=== PATIENT | male | born 1955 | race Asian ===

== ENCOUNTER 2017-10-12 08:00 | Outpatient (CLI) | payer OTHER ==
[2017-10-12 13:21] LABS: THYROID STIMULATING HORMONE 48.22 uIU/mL (0.34-5.60)
[2017-10-12 13:37] LABS: ALBUMIN 4.1 g/dL (3.2-5.5); ALBUMIN/GLOBULIN RATIO 1.1 (1.0-2.2); ALKALINE PHOSPHATASE 44 IU/L (42-121); ALT ALANINE AMINOTRANSFERASE 18 IU/L (10-60); AST ASPARTATE AMINOTRANSFERASE 22 IU/L (10-42); BILIRUBIN,TOTAL 0.5 mg/dL (0.2-1.0); BUN - BLOOD UREA NITROGEN 18 mg/dL (6-20); CALCIUM 8.7 mg/dL (8.5-10.3); CARBON DIOXIDE - CO2 27 mmol/L (21-32); CHLORIDE 105 mmol/L (101-111); CHOLESTEROL 229 mg/dL; CREATININE 1.2 mg/dL (0.6-1.2); GFR - MDRD 62 (>89); GLUCOSE 84 mg/dL (70-100); HDL CHOLESTEROL 46 mg/dL; LDL CHOLESTEROL,CALCULATED 168 mg/dL; LDL/HDL RATIO 3.7 (<3.6); SODIUM 136 mmol/L (135-145); TOTAL PROTEIN 7.9 g/dL (6.7-8.2); VLDL CHOLESTEROL 15 mg/dL
[2017-10-12 14:09] LABS: FREE T4 (FREE THYROXINE) 0.49 ng/dL (0.58-1.64)
== END 2017-10-12 08:01 | disposition home or self-care (01) ==
LOC: LAB.WCP 08:00
PROVIDERS: ATTEND Family Medicine
DX: E78.5 Hyperlipidemia, unspecified (principal); E03.9 Hypothyroidism, unspecified; I10 Essential (primary) hypertension
CPT/HCPCS: 36415; 80053; 80061; 83721; 84439; 84443

== ENCOUNTER 2019-02-16 17:52 | Observation (INO) | payer MEDICARE, OTHER ==
[~2019-02-16 17:52] MED LIST: ISOSORBIDE MONONITRATE ER 30 MG TABLET PO SCH
[2019-02-16 18:26] LABS: BASOPHILS % (AUTO) 0.4 %; EOSINOPHILS # (AUTO) 0.5 10^3/uL (0.0-0.7); HGB - HEMOGLOBIN 14.6 g/dL (14.0-18.0); LYMPHOCYTES # (AUTO) 2.4 10^3/uL (1.5-3.5); MEAN CORPUSCULAR HEMOGLOBIN 32.4 pg (27.0-31.0); MEAN CORPUSCULAR HGB CONC 33.8 g/dL (32.0-36.0); MEAN CORPUSCULAR VOLUME 95.9 fL (80.0-94.0); MEAN PLATELET VOLUME 6.5 fL (7.4-11.4); MONOCYTES # (AUTO) 0.2 10^3/uL (0.0-1.0); MONOCYTES % (AUTO) 3.8 %; NEUTROPHILS # (AUTO) 2.2 10^3/uL (1.5-6.6); NEUTROPHILS % (AUTO) 40.8 %; PLT - PLATELET COUNT 214 10^3/uL (130-450); RED BLOOD COUNT 4.49 10^6/uL (4.70-6.10); RED CELL DISTRIBUTION WIDTH 13.9 % (12.0-15.0); WHITE BLOOD COUNT 5.4 x10^3/uL (4.8-10.8)
[2019-02-16] MEDS ORDERED: ASPIRIN CHEW 81 MG TABLET PO STA (18:38)
[2019-02-16] MEDS ORDERED: NITROGLYCERIN SL 0.4 MG TABLET SL STA (18:38)
[2019-02-16 18:40] LABS: ALBUMIN 4.6 g/dL (3.2-5.5); BILIRUBIN,TOTAL 0.7 mg/dL (0.2-1.0); CALCIUM 9.2 mg/dL (8.5-10.3); CREATININE 1.2 mg/dL (0.6-1.2); TOTAL PROTEIN 9.3 g/dL (6.7-8.2)
--- NOTE | 2019-02-16 18:40 | ED Physician Documentation ---
History of Present Illness - Stated complaint Stated Complaint: CHEST PAIN, DIZZY - Chief complaint Chief Complaint: General - History obtained from History obtained from: Patient, Family - History of Present Illness Timing: Today (63-year-old gentleman with history of hypertension. He had a chest pain episode about a year ago in the [facility] without a clear diagnosis other than hypertension. He has had chest heaviness all day anterior nonradiating. He is short of breath with it. He had a right leg cramp last night.) Review of Systems Ten Systems: 10 systems reviewed and negative Constitutional: reports: Reviewed and negative Nose: denies: Rhinorrhea / runny nose, Congestion Throat: denies: Sore throat Cardiac: denies: Pedal edema Respiratory: reports: Dyspnea. denies: Cough, Hemoptysis, Wheezing PD PAST MEDICAL HISTORY - Past Medical History Past Medical History: Yes Cardiovascular: Hypertension - Present Medications Home Medications: Ambulatory Orders Medication Instructions Recorded Confirmed Levothyroxine [Synthroid] 75 mcg PO QDAC 02/16/19 02/16/19 Losartan [Cozaar] 50 mg PO DAILY 02/16/19 02/16/19 Omeprazole Magnesium [Prilosec] 10 mg PO 02/16/19 02/16/19 - Allergies Allergies/Adverse Reactions: Allergies Allergy/AdvReac Type Severity Reaction Status Date / Time No Known Drug Allergies Allergy Verified 02/16/19 18:34 - Living Situation Living Situation: reports: With family - Social History Does the pt smoke?: No Does the pt drink ETOH?: No - Family History Family history: reports: CAD (brothers) PD ED PE NORMAL - Vitals Vital signs reviewed: Yes - General General: Alert and oriented X 3, No acute distress - HEENT HEENT: PERRL, EOMI - Neck Neck: Supple, no meningeal sign, No bony TTP - Cardiac Cardiac: RRR, No murmur - Respiratory Respiratory: No respiratory distress, Clear bilaterally - Abdomen Abdomen: Normal bowel sounds, Soft, Non tender - Back Back: No CVA TTP, No spinal TTP - Derm Derm: Normal color, Warm and dry - Extremities Extremities: No edema, No calf tenderness / cord - Neuro Neuro: Alert and oriented X 3, Normal speech Results - Vitals Vitals: Vital Signs - 24 hr 02/16/19 02/16/19 02/16/19 17:57 18:38 18:58 Temperature 36.4 C L Heart Rate 85 74 79 Respiratory 20 17 Rate Blood Pressure 182/99 H 168/100 H 124/89 H O2 Saturation 98 99 98 Oxygen O2 Source Room air - EKG (time done) 1755 Rate: Rate (enter#) (68) Rhythm: NSR Desmet: Normal Intervals: Normal IN QRS: Normal Ischemia: Normal ST segments Computer interpretation: Agree with computer - Labs Labs: Laboratory Tests 02/16/19 02/16/19 02/16/19 18:18 18:18 18:18 WBC 5.4 RBC 4.49 L Hgb 14.6 Hct 43.1 MCV 95.9 H MCH 32.4 H MCHC 33.8 RDW 13.9 Plt Count 214 MPV 6.5 L Neut # (Auto) 2.2 Lymph # (Auto) 2.4 [place] # (Auto) 0.2 Eos # (Auto) 0.5 Baso # (Auto) 0.0 Absolute Nucleated RBC 0.00 Nucleated RBC % 0.1 D-Dimer Sodium 137 Potassium 3.6 Chloride 100 L Carbon Dioxide 27 Anion Gap 10.0 BUN 17 Creatinine 1.2 Estimated GFR (MDRD) 61 L Glucose 112 H Calcium 9.2 Total Bilirubin 0.7 AST 34 ALT 33 Alkaline Phosphatase 69 Troponin I < 0.04 Total Protein 9.3 H Albumin 4.6 Globulin 4.7 H Albumin/Globulin Ratio 1.0 Lipase 34 02/16/19 18:18 WBC RBC Hgb Hct MCV MCH MCHC RDW Plt Count MPV Neut # (Auto) Lymph # (Auto) [place] # (Auto) Eos # (Auto) Baso # (Auto) Absolute Nucleated RBC Nucleated RBC % D-Dimer 224.9 Sodium Potassium Chloride Carbon Dioxide Anion Gap BUN Creatinine Estimated GFR (MDRD) Glucose Calcium Total Bilirubin AST ALT Alkaline Phosphatase Troponin I Total Protein Albumin Globulin Albumin/Globulin Ratio Lipase - Rads (name of study) 2v chest Radiology: EMP read contemporaneously (normal) PD MEDICAL DECISION MAKING - ED course ED course: 63-year-old gentleman with a significant Family history of coronary disease and hypertension who presents with concerning chest pain but EKG and biomarkers are negative. Spoke with Dr. Jansen for observation at 7:49 PM Departure - Departure Disposition: ED Place in Observation Clinical Impression: Chest pain Qualifiers: Chest pain type: unspecified Qualified Code(s): R07.9 - Chest pain, unspecified Condition: Good
--- NOTE | 2019-02-16 18:55 | XRAY Report ---
Reason: chest pain Procedure Date: 02/16/2019 Accession Number: [id number] / [id number] Procedure: XR - Chest 2 View X-Ray CPT Code: 49502 FULL RESULT: EXAM: CHEST RADIOGRAPHY EXAM DATE: 02/16/2019 06:34 PM. CLINICAL HISTORY: Chest pain. COMPARISON: XR CHEST PA AND LAT 12/26/2011 1:24 PM. TECHNIQUE: 2 views. FINDINGS: Lungs/Pleura: No focal opacities evident. No pleural effusion. No pneumothorax. Normal volumes. Mediastinum: Heart and mediastinal contours are unremarkable. Other: None. IMPRESSION: No focal consolidation. RADIA
[2019-02-16] MEDS ORDERED: ACETAMINOPHEN 325 MG TABLET PO PRN (21:33)
[2019-02-16] MEDS ORDERED: oxyCODONE 5 MG TABLET PO PRN (21:33)
[2019-02-16] MEDS ORDERED: SODIUM CHLORIDE FLUSH 0.9% 10 ML SYRINGE IVP PRN (21:33)
[2019-02-16] MEDS ORDERED: ZOLPIDEM 5 MG TABLET PO PRN (21:33)
[2019-02-16] MEDS ORDERED: ONDANSETRON 4 MG/2 ML VIAL IVP PRN (21:33)
[2019-02-16] MEDS ORDERED: ISOSORBIDE MONONITRATE ER 30 MG TABLET PO ONE (22:00)
[2019-02-16] MEDS ORDERED: POTASSIUM CHLORIDE 10 MEQ CAPSULE PO ONE (22:00)
[2019-02-17] MEDS: SODIUM CHLORIDE FLUSH 0.9% 10 ML SYRINGE IVP SCH ×3 (00:09→17:54)
--- NOTE | 2019-02-17 04:45 | HISTORY & PHYSICAL EXAMINATION ---
DATE OF SERVICE: 02/16/2019 Physician: Maritza Jansen MD CHIEF COMPLAINT: Chest pain. HISTORY OF PRESENT ILLNESS: Patient is a pleasant 63-year-old [place] male who presented to the ER with about 3 days' history of intermittent chest pains. Patient was a good historian and described the following: He had chest pain about a year ago, at which time he was in the [facility], underwent workup with echocardiogram and EKG, but no stress test per his knowledge. He was not told about any particular abnormality. Regarding the current presentation, he developed chest discomfort about 3 days ago. It was similar to his prior chest pain, it was not intense. Therefore, he did not seek medical attention. He, however, noted that recently when he exercises, he becomes short of breath easily and sometimes he needs to stop to catch his breath. He gets tired more than usual. On the day of admission around 02/16/2019, he got up in the morning around 6 a.m. and he had coffee. After having his coffee, he became dizzy and he felt like something was sitting on his chest. He had a heavy chest discomfort. It was associated with shortness of breath. He rated it as a 5/10 pain, heavy pain like discomfort. The pain stayed with him throughout the day. It was worse when he tried to exercise. Notably, he exercises daily. He walks and he rides his bike. 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 All day, he was short of breath and dizzy and around the evening, his symptoms got bad enough that he presented to the ER. Upon presentation to the ER, the patient was found with hypertension. Blood pressure initially was 200/100. Vital signs were otherwise stable. ER workup included negative D-dimer, negative troponin, EKG without ischemic sign. Unremarkable chest x-ray. Laboratory showed potassium 3.6, unremarkable glucose, renal function, normal liver function tests. Notably, TSH was 60. Reviewing the medical chart, patient sees Dr. Antwan Dillard and he was started on thyroid supplement for hypothyroidism. TSH was significantly elevated in the past. However, overall with downgoing trend. PAST MEDICAL HISTORY 1. Cataracts, retinitis pigmentosa. 2. Hypothyroidism. 3. Hypertension. 4. Gastroesophageal reflux disease. 5. Dyslipidemia. 6. No history of coronary artery disease or diabetes. OUTPATIENT MEDICATIONS 1. Losartan. 2. Levothyroxine. 3. Omeprazole. SOCIAL HISTORY: Patient stopped driving due to eye problems in 2014. Otherwise, he is fully functional with instrumental activities of daily living. He is in good general health and exercises daily. He does not smoke and does not drink. He is originally from the [facility]. CODE STATUS/ADVANCE DIRECTIVES: Patient wishes to remain FULL CODE and receive aggressive intervention in case of emergency. FAMILY HISTORY: Positive for coronary artery disease in one of the patient's brothers who had MA around age 60. PRIMARY CARE PHYSICIAN: Dr. Antwan Dillard. REVIEW OF SYSTEMS: Please see pertinent positives listed above at history of present illness. Patient does not report additional complaints on the 12-system review. PHYSICAL EXAMINATION VITAL SIGNS: Blood pressure initially 200/100, currently 170/83. Notably, during the ER stay, patient received nitroglycerin after which his blood pressure transiently decreased to 120/90, heart rate between 70 and 80, respiratory rate 17, oxygen saturation 98% on room air, temperature 36.8 Celsius. GENERAL: Patient is a well-developed male who is sitting up in bed, was surrounded by his family members and he just finished dinner. He was not in distress. CARDIOVASCULAR: S1, S2, at the second right parasternal auscultation point, there was a systolic click with questionable murmur. LUNGS: Clear to auscultation without wheezes or crackles. ABDOMEN: Soft, benign, nontender. Normal bowel tones. LYMPHATIC: No lymphedema. MUSCULOSKELETAL: Atraumatic. DERMATOLOGIC: The patient has dark skin. I could not appreciate rash or jaundice. MUSCULOSKELETAL: Without joint swelling or muscle tenderness. NEUROLOGIC: Alert, oriented, nonfocal. PSYCHIATRIC: Cooperative, pleasant to talk to. ASSESSMENT AND PLAN: Patient is a 63-year-old male with multiple cardiac risk factors including age, gender, hypertension and dyslipidemia, who is presenting with chest pain, which has both typical and atypical features. In particular, the chest pain seems to be exertional, associated with shortness of breath and fatigue, which would suggest cardiac etiology. However, cardiac workup remains negative including troponin and EKG. The onset of the symptoms was more than 8 hours ago which is reassuring that the patient does not have acute coronary syndrome. However, he is high risk to have coronary artery disease and will require further risk stratification with stress test. Notably, the patient had uncontrolled hypertension, plus he has a hypothyroid state, both of which could contribute to his general well being, symptoms and chest pain. ACTIVE ISSUES/DIAGNOSES 1. Chest pain, mostly exertional. 2. Uncontrolled hypertension. 3. Hypothyroid state. 4. On physical exam there is a systolic click, I question whether the patient would have mitral valve prolapse. PLAN AND ORDERS 1. Patient is being admitted under observation status. He is undergoing a rapid cardiac rule out. We will order echocardiogram to assess for valvular heart disease. I ordered an exercise stress test for the morning as well. 2. Considering uncontrolled hypertension, increase losartan from 50 mg daily to 100 mg daily. 3. Regarding hypothyroid state, I will check free T4. The thyroid disease is managed by the primary care physician. Patient is already on thyroid supplement. It might need to be increased. 4. Deep venous thrombosis prophylaxis, daily aspirin. 5. FULL CODE. Time spent in the care of this patient 55 minutes. ATTESTATION: I certify that the reasonable expectation for this patient is to be hospitalized for less than 48 hours. He is undergoing rapid cardiac rule out. If he will have significantly abnormal stress test, then he might get transferred to another facility. In any case, in our hospital, we expect observation admission less than 48 hours. TD: 02/16/2019 23:17 APARNA
[2019-02-17] MEDS ORDERED: LEVOTHYROXINE 75 MCG TABLET PO SCH (07:00)
[2019-02-17] MEDS ORDERED: PANTOPRAZOLE 40 MG VIAL IVP SCH (07:00)
[2019-02-17] MEDS ORDERED: LOSARTAN 50 MG TABLET PO SCH ×2 (09:00)
[2019-02-17] MEDS ORDERED: POLYETHYLENE GLYCOL 3350 17 GM PACKET PO SCH (09:00)
[2019-02-17] MEDS ORDERED: ENOXAPARIN 40 MG/0.4 ML SYRINGE SUBQ SCH (09:00)
[2019-02-17] MEDS ORDERED: ASPIRIN CHEW 81 MG TABLET PO SCH (09:00)
[2019-02-17 09:34] LABS: CHOL/HDL RATIO 5.4 (<5.0); CHOLESTEROL 237 mg/dL; HDL CHOLESTEROL 44 mg/dL; LDL CHOLESTEROL,CALCULATED 168 mg/dL; LDL/HDL RATIO 3.8 (<3.6); VLDL CHOLESTEROL 25 mg/dL
--- NOTE | 2019-02-17 14:26 | CARDIAC PROCEDURE NOTE ---
DATE OF SERVICE: 02/17/2019 Physician: Jenn Horton MD INDICATION: Chest pain. CARDIAC RISK FACTORS: Male gender, hypertension, and family history of heart disease (in a brother who had an TX at age 60). PROCEDURE: After signing informed consent, the patient underwent a Mekhi- protocol treadmill stress test with nuclear myocardial perfusion imaging. The patient exercised for 2 minutes and 36 seconds and needed to stop because of extreme fatigue and shortness of breath. He also developed "chest discomfort" which he rated 3-4/10. After stopping the test, he stated that this was not the "chest pressure" that he had yesterday which brought him to the emergency room. His oxygen saturation at this point was 98% on room air at peak. RESTING HEART RATE: 48. PEAK HEART RATE: 102 (64% predicted maximum heart rate for age), 4.6 METS. RESTING BLOOD PRESSURE: 120/80. PEAK BLOOD PRESSURE: Blood pressure 126/72 but then it eileen even further in recovery to 147/80 at 2 minutes and 150/75 at 3 minutes. Heart rate; however, recovered normally after exercise, it was 58-60 after 3 minutes. RESTING EKG: Sinus bradycardia, LVH voltage, flat T-waves in leads II, III, aVF, and V5 through V6. EKG AT PEAK: Frequent PVCs, ventricular couplets, one ventricular triplet seen, pseudonormalization of T-waves in leads II, III, aVF and V5 through V6. In recovery the T waves returned back to being flat in the inferolateral leads. SUMMARY: 1. Poor exercise tolerance. 2. Abnormal resting EKG. 3. Ventricular ectopy increases with exercise. 4. Significant changes are seen by EKG criteria, even at only 64% predicted maximum heart rate and a low MET level achieved. 5. Nuclear images reported separately. 6. If myocardial perfusion images are negative for ischemia, it may be due to inadequate peak HR achieved and patient needs a repeat evaluation for CAD with pharmaceutical stress testing. He also needs Cardiology follow-up for chronotropic incompetence which may be the cause of his shortness. TD: 02/17/2019 13:11 MTDD
--- NOTE | 2019-02-17 14:27 | Nuclear Medicine Report ---
Reason: Chest pain Procedure Date: 02/17/2019 Accession Number: [id number] / [id number] Procedure: NM - Myocardial Perfusion STR/RST CPT Code: FULL RESULT: EXAM: MYOCARDIAL PERFUSION STRESS AND REST EXAM DATE: 02/17/2019 01:56 PM. CLINICAL HISTORY: Chest pain. COMPARISON: None. TECHNIQUE: Patient given 10.1 mCi technetium 99m sestamibi IV for the rest portion of the study. Non-gated cardiac SPECT scintigraphy performed with multiplanar reformats. After an appropriate delay, patient given 0.4 mg Lexiscan for pharmacologic stress. Next, patient given 40.9 mCi technetium 99m sestamibi IV. Cardiac gated SPECT scintigraphy performed with multiplanar reformats, wall motion analysis, and left ventricular ejection fraction estimation. FINDINGS: There is uniform left ventricular myocardial activity on stress and rest. No fixed or reversible stress related perfusion defects are seen. Wall motion is uniform. Left ventricular ejection fraction estimated at 63%. IMPRESSION: 1. Normal exam. 2. No scintigraphic evidence of inducible ischemia or infarct. 3. Left ventricular ejection fraction estimated at 63%. RADIA The call report notification system was initiated by Dr. Warren Skinner at 02:26 PM on 02/17/2019. ADDENDUM: 02/18/19 15:33 hrs. Addendum: Correction to the technique section. This was actually a treadmill stress exam. Patient exercised on a Mekhi treadmill protocol and achieved a maximum heart rate of 102 bpm, 64% of the maximum predicted rate. As such, sensitivity of this exam for ischemia is reduced. End of addendum
[2019-02-17 15:55] VITALS: BP 106/62
--- NOTE | 2019-02-17 15:55 | Discharge Plan ---
Discharge Plan Disposition: Home, Self Care Condition: Fair Prescriptions: Nitroglycerin [Nitrostat] 0.4 mg SL Q5MIN PRN #100 tab.subl PRN Reason: Chest Pain Aspirin Chewable [St Polo Aspirin] 81 mg PO DAILY #30 tablet Atorvastatin Calcium [Lipitor] 80 mg PO QPM #30 tablet Diet: Cardiac Activity Restrictions: Light activity, no exercise Shower Restrictions: No Driving Restrictions: No Instruction Topics: Angina, Nitroglycerin Fast Acting, Fat Cholesterol, Foods Heart Healthy, Bradycardia Additional Instructions or Follow Up instructions: You were hospitalized to evaluate shortness of breath that was worsening over 3 months and new chest pain over the last 4 days. We found that you have had no prior heart attack, your heart muscle is strong, you have a very abnormally low heart rate and it does not rise adequately with activity. New prescriptions are being ordered to use when you get chest pain , and also you should start taking 1 aspirin daily and 1 tablet of Lipitor every night. These prescriptions were electronically sent to your [facility] pharmacy. Start taking the Lipitor tonight and take the aspirin daily with food. Take that tablet called nitroglycerin, to have it melt under your tongue, if you get chest pain. Keep taking the Losartan and the thyroid and stomach medicines. You will need to have follow-up with a [employer] (electronic security specialist) for further evaluation of your heart: A possible pacemaker is needed and another, different stress test is needed. Dr Dillard will arrange that for you. Bring this entire packet with you when you see Dr. Dillard tomorrow, for him to review. No Smoking: If you smoke, Please STOP! Call for help. Follow-up with: Antwan Dillard MD [Primary Care Provider] -
[2019-02-18] MEDS ORDERED: LEVOTHYROXINE 100 MCG TABLET PO SCH (07:00)
[2019-02-18] MEDS ORDERED: LEVOTHYROXINE 75 MCG TABLET PO SCH (07:00)
--- NOTE | 2019-02-22 12:27 | DISCHARGE SUMMARY ---
"Discharge Summary Admit Date: 02/16/19 Discharge Date: 02/17/19 Discharging Provider: Dr Jenn Horton Primary Care Provider: Dr Antwan Tolbert Code Status: Attempt Resuscitation Condition at Discharge: Stable Discharge Disposition: 01 Home, Self Care - DIAGNOSES Admission Diagnoses: 1) Chest pain 2) Fatigue 3) Bradycardia 4) Hypothyroidism 5) HTN Discharge Diagnoses with Status of Each Condition: 1) Chest pain - Evaluated and needs follow-up 2) Bradycardia - Stable, still present 3) Chronotropic incompetence with sinus node dysfunction - Stable, still present 4) Hyperlipidemia - On treatment 5) Hypothyroidism - On treatment 6) HTN - Stable, on treatment - HPI History of Present Illness: This is a 63 y/o male of [place] heritage who has a history of HTN, Hypothyroidism and GERD, and takes Losartan, Synthroid and Omeprazole. He had noticed fatigue recently and on the day of admission developed chest pressure with shortness of breath, worse with activity. He was also much more fatigued with new lightheadedness. In the ER, he had an EKG that showed sinus bradycardia at rate 56, and flat T waves in leads I, II, III, AVL, AV F and V6, and a normal troponin. He was placed in Observation status on telemetry for further cardiac evaluation. - CONSULTS | PROCEDURES Consultations: None Procedures: Treadmill stress test with Nuclear Myocardial Perfusion Imaging. Echo, complete. - HOSPITAL COURSE Hospital Course: 1) Chest pain - He had no further chest pain. A D-dimer was negative. Three troponins were < 0.04. He had a resting Echo that showed concentric LVH and borderline (low normal) LVEF of 50-55%. He underwent a treadmill stress test: he exercised for only 2:36 minutes and needed to stop due to fatigue, SOB and chest discomfort, rated 4/10. This was associated with increased PVCs and pseudonormalization of previously flat T waves. The nuclear images however showed no areas of ischemia. I spoke to Dr Tolbert about his results and the recommendation for repeat stress testing, Cardiology referral and the patient was started on sublingual NTG, daily aspirin and a statin and advised light activity, no daily exercise. 2) Bradycardia - Telemetry showed his slowest heart rates while sleeping to be 51 bpm. There were no high grade blocks. He will need further cardiac evaluation, such as with a Holter monitor and Cardiology referral and follow-up. 3) Chronotropic incompetence with sinus node dysfunction - This was documented by stress testing, as above, and I discussed this with Dr Tolbert. 4) Hyperlipidemia - His fasting lipid panel showed a total cholesterol of 237, LDL 168, HDL 25 and Triglycerides of 123. He was started on Lipitor. 5) Hypothyroidism - His labs showed persistent hypothyroidism: TSH 60 , free T4 1.1. He is on treatment and his Synthroid dose was not adjusted while here. 6) HTN - His Losartan was continued. - ALLERGIES Allergies/Adverse Reactions: Allergies Allergy/AdvReac Type Severity Reaction Status Date / Time No Known Drug Allergies Allergy Verified 02/16/19 18:34 - MEDICATIONS Home Medications: Ambulatory Orders Medication Instructions Recorded Confirmed Levothyroxine [Synthroid] 175 mcg PO QDAC 02/16/19 02/17/19 Losartan [Cozaar] 50 mg PO DAILY 02/16/19 02/16/19 Aspirin Chewable [St Polo 81 mg PO DAILY #30 tablet 02/17/19 Aspirin] Atorvastatin Calcium [Lipitor] 80 mg PO QPM #30 tablet 02/17/19 Nitroglycerin [Nitrostat] 0.4 mg SL Q5MIN PRN #100 tab.subl 02/17/19 Omeprazole 10 mg PO QDAC 02/17/19 02/17/19 - PHYSICAL EXAM AT DISCHARGE General Appearance: positive: No acute distress, Alert Eyes Bilateral: positive: EOMI ENT: positive: ENT inspection nml Neck: positive: Nml inspection, No JVD Cardiovascular: positive: Regular rate & rhythm, No murmur Abdomen: positive: Non-tender Extremities: positive: No pedal edema - LABS Result Diagrams: 02/16/19 18:18 02/16/19 18:18 - DIAGNOSTIC IMAGING Diagnostic Imaging Results: Final report reviewed - FOLLOW UP Follow Up: See Dr Tolbert, an appointment was already scheduled for the next day, he is to keep that appointment."
== END 2019-02-17 17:05 | disposition home or self-care (01) ==
LOC: ED 17:52 → MS2 19:50
PROVIDERS: ADMIT Internal Medicine; ATTEND Internal Medicine
DX: R07.89 Other chest pain (principal); R06.02 Shortness of breath; R00.1 Bradycardia, unspecified; E78.5 Hyperlipidemia, unspecified; I11.9 Hypertensive heart disease without heart failure; E03.9 Hypothyroidism, unspecified; K21.9 Gastro-esophageal reflux disease without esophagitis; Z79.899 Other long term (current) drug therapy; Z82.49 Family history of ischemic heart disease and other diseases of the circulatory system
CPT/HCPCS: 36415; 71046; 78452; 80061; 83690; 84436; 84484; 85379; 93005; 93017; 93306; 96372; 96374; 99284; A9270; A9500; G0378; J1650; 80053; 83721; 84443; 85025

== ENCOUNTER 2019-02-20 08:26 | Outpatient (CLI) | payer MEDICARE ==
[2019-02-20 12:37] LABS: CALCIUM 9.2 mg/dL (8.5-10.3); CREATININE 1.2 mg/dL (0.6-1.2)
[2019-02-20 12:57] LABS: FREE T4 (FREE THYROXINE) 0.39 ng/dL (0.58-1.64)
[2019-02-20 13:50] LABS: THYROID STIMULATING HORMONE 59.4 uIU/mL (0.34-5.60)
== END 2019-02-20 08:27 | disposition home or self-care (01) ==
LOC: LAB.WCP 08:26
PROVIDERS: ATTEND Family Medicine
DX: I49.8 Other specified cardiac arrhythmias (principal); E03.9 Hypothyroidism, unspecified; I10 Essential (primary) hypertension
CPT/HCPCS: 36415; 80048; 84439; 84443

== ENCOUNTER 2020-02-15 13:38 | Emergency (ER) | payer MEDICARE ==
[2020-02-15 14:08] LABS: BILIRUBIN,URINE NEGATIVE (NEGATIVE); GLUCOSE, URINE (UA) NEGATIVE (NEGATIVE); KETONES,URINE (UA) NEGATIVE (NEGATIVE); LEUKOCYTE ESTERASE, URINE NEGATIVE (NEGATIVE); NITRITE,URINE NEGATIVE (NEGATIVE); OCCULT BLOOD,URINE LARGE (NEGATIVE); PH,URINE 5.5 PH (5.0-7.5); PROTEIN,URINE 100 mg/dL (NEGATIVE); UROBILINOGEN,URINE 0.2 (NORMAL) E.U./dL (NORMAL)
[2020-02-15 14:12] LABS: CLARITY,URINE CLEAR (CLEAR)
[2020-02-15 14:21] LABS: BACTERIA,URINE Rare /HPF (None Seen); SQUAMOUS EPITHELIAL CELL,UR NONE SEEN (<= Few)
--- NOTE | 2020-02-15 14:26 | ED Physician Documentation ---
History of Present Illness - Stated complaint Stated Complaint: MALE - Chief complaint Chief Complaint: UTI - History obtained from History obtained from: Patient, Family - History of Present Illness Timing: Prior to arrival, How many weeks ago (4) Pain level max: 6 Pain level now: 2 - Additonal information Additional information: 64 year old male presents to the ED with cc of lower abdominal/suprapubic pain. Some dysuria. Reports a hx of kidney stones that requires some type of intervention in 2005 (? lithotripsy) pt reports that since the pain began a month ago, it has gotten increasing worse. he often has pain when urinating, but no obvious hematuria denies fevers, flank or CVA soham, no chills. pmh includes HTN, hypothyroid and dyslipidemia. he takes lotrel, statin and levothyroxine Review of Systems Constitutional: denies: Fever, Chills, Myalgias Nose: reports: Reviewed and negative Throat: reports: Reviewed and negative Cardiac: denies: Chest pain / pressure, Palpitations, Calf pain Respiratory: denies: Dyspnea, Cough GI: reports: Abdominal Pain. denies: Nausea, Vomiting, Constipation, Diarrhea, Hematemesis : reports: Dysuria. denies: Frequency, Hesitancy, Unable to Void Skin: denies: Rash, Lesions Musculoskeletal: denies: Neck pain, Back pain Neurologic: reports: Reviewed and negative Endocrine: denies: Swollen lymph nodes PD PAST MEDICAL HISTORY - Past Medical History Past Medical History: Yes Cardiovascular: Hypertension Respiratory: None Neuro: None Endocrine/Autoimmune: HyPOthyroidism GI: None : None Psych: None Musculoskeletal: None Derm: None - Past Surgical History Past Surgical History: Yes HEENT: Cataracts - Present Medications Home Medications: Ambulatory Orders Medication Instructions Recorded Confirmed Levothyroxine [Synthroid] 175 mcg PO QDAC 02/16/19 02/17/19 Losartan [Cozaar] 50 mg PO DAILY 02/16/19 02/16/19 Aspirin Chewable [[place] 81 mg PO DAILY #30 tablet 02/17/19 Aspirin] Atorvastatin Calcium [Lipitor] 80 mg PO QPM #30 tablet 02/17/19 Nitroglycerin [Nitrostat] 0.4 mg SL Q5MIN PRN #100 tab.subl 02/17/19 Omeprazole 10 mg PO QDAC 02/17/19 02/17/19 - Allergies Allergies/Adverse Reactions: Allergies Allergy/AdvReac Type Severity Reaction Status Date / Time No Known Drug Allergies Allergy Verified 02/15/20 13:48 - Social History Does the pt smoke?: No Smoking Status: Never smoker Does the pt drink ETOH?: No Does the pt have substance abuse?: No - POLST Patient has POLST: No PD ED PE NORMAL - General General: Alert and oriented X 3, No acute distress, Well developed/nourished - HEENT HEENT: Atraumatic, PERRL - Neck Neck: No adenopathy - Cardiac Cardiac: RRR, No murmur, No gallop - Respiratory Respiratory: No respiratory distress, Clear bilaterally - Abdomen Abdomen: Normal bowel sounds, Other (tender in the suprapubic region. No flank, CVA tendernss. no rebound or guarding. negative murphys and mcburneys) - Male Male : Deferred - Back Back: No CVA TTP - Derm Derm: Normal color, Warm and dry, No rash - Extremities Extremities: No deformity Results - Vitals Vitals: Vital Signs - 24 hr 02/15/20 13:41 Temperature 36.2 C L Heart Rate 70 Respiratory 20 Rate Blood Pressure 169/90 H O2 Saturation 98 Oxygen O2 Source Room air - Labs Labs: Laboratory Tests 02/15/20 02/15/20 02/15/20 14:01 14:40 14:40 WBC 7.2 RBC 4.68 L Hgb 14.9 Hct 44.0 MCV 94.0 MCH 31.8 H MCHC 33.9 RDW 12.1 Plt Count 243 MPV 8.3 Neut # (Auto) 2.9 Lymph # (Auto) 2.9 Mower # (Auto) 0.4 Eos # (Auto) 0.9 H Baso # (Auto) 0.0 Absolute Nucleated RBC 0.00 Nucleated RBC % 0.0 Sodium 136 Potassium 4.0 Chloride 98 L Carbon Dioxide 30 Anion Gap 8.0 BUN 24 H Creatinine 1.1 Estimated GFR (MDRD) 67 L Glucose 101 H Calcium 9.2 Total Bilirubin 0.6 AST 21 ALT 19 Alkaline Phosphatase 77 Total Protein 9.5 H Albumin 4.5 Globulin 5.0 H Albumin/Globulin Ratio 0.9 L Lipase 33 Urine Color YELLOW Urine Clarity CLEAR Urine pH 5.5 Ur Specific [place] 1.020 Urine Protein 100 H Urine Glucose (UA) NEGATIVE Urine Ketones NEGATIVE Urine Occult Blood LARGE H Urine Nitrite NEGATIVE Urine Bilirubin NEGATIVE Urine Urobilinogen 0.2 (NORMAL) Ur Leukocyte Esterase NEGATIVE Urine RBC 6-10 H Urine WBC 0-3 Ur Squamous Epith Cells NONE SEEN Urine Bacteria Rare Ur Microscopic Review INDICATED Urine Culture Comments NOT INDICATED - Rads (name of study) ct abd Radiology: Final report received (Enlarged retroperitoneal or peritoneal lymph nodes highly suspicious for metastatic disease.Segmental wall thickening in the proximal sigmoid colon with associated fat stranding suggestive of an intramural mass. These findings are suspicious for colon cancer.) PD MEDICAL DECISION MAKING - ED course Complexity details: reviewed results, re-evaluated patient, d/w patient, d/w family ED course: 64-year-old gentleman presents to the emergency department with about 1 month of lower abdominal pain and hematuria. - Labs and urinalysis were evaluated. He does have hematuria but no signs of infection defer antibiotics. The rest of the serum chemistry and CBC is without significant abnormality or worry. - Unfortunately CT scanning has revealed retroperitoneal lymph nodes and sigmoid thickening and fat stranding suggestive of an intramural mass or cancer. - I have discussed these results in detail with the patient and his grandson. -Patient is hemodynamically stable for discharge home. He will contact his primary care physician tomorrow to arrange prompt follow-up. He should receive a screening colonoscopy as well as likely referral to an oncologist. Departure - Departure Disposition: 01 Home, Self Care Clinical Impression: Retroperitoneal lymphadenopathy, Colonic mass Hematuria Qualifiers: Hematuria type: gross Qualified Code(s): R31.0 - Gross hematuria Condition: Good Record reviewed to determine appropriate education?: Yes Comments: The CT scanning showed findings that are concerning for cancer in the colon. You have a mass in your sigmoid colon that should be seen for evaluation through a colonoscopy. Please see your primary care provider within the next week to discuss these findings and to receive the appropriate referrals. Continue to take the hydrocodone that has been prescribed by your primary doctor. Return to the clinic for worsening pain vomiting or failure to have a bowel movement for 3 or more days.
[2020-02-15 14:47] LABS: BASOPHILS % (AUTO) 0.4 %; EOSINOPHILS # (AUTO) 0.9 10^3/uL (0.0-0.7); HGB - HEMOGLOBIN 14.9 g/dL (14.0-18.0); LYMPHOCYTES # (AUTO) 2.9 10^3/uL (1.5-3.5); LYMPHOCYTES % (AUTO) 40.9 %; MEAN CORPUSCULAR HEMOGLOBIN 31.8 pg (27.0-31.0); MEAN CORPUSCULAR HGB CONC 33.9 g/dL (32.0-36.0); MEAN PLATELET VOLUME 8.3 fL (7.4-11.4); MONOCYTES # (AUTO) 0.4 10^3/uL (0.0-1.0); NEUTROPHILS # (AUTO) 2.9 10^3/uL (1.5-6.6); NEUTROPHILS % (AUTO) 40.4 %; PLT - PLATELET COUNT 243 10^3/uL (130-450); RED BLOOD COUNT 4.68 10^6/uL (4.70-6.10); RED CELL DISTRIBUTION WIDTH 12.1 % (12.0-15.0); WHITE BLOOD COUNT 7.2 x10^3/uL (4.8-10.8)
[2020-02-15 15:02] LABS: ALBUMIN 4.5 g/dL (3.2-5.5); ALBUMIN/GLOBULIN RATIO 0.9 (1.0-2.2); BILIRUBIN,TOTAL 0.6 mg/dL (0.2-1.0); CALCIUM 9.2 mg/dL (8.5-10.3); CREATININE 1.1 mg/dL (0.6-1.2); TOTAL PROTEIN 9.5 g/dL (6.7-8.2)
[2020-02-15] MEDS ORDERED: KETOROLAC 30 MG/ML VIAL IM STA (15:14)
--- NOTE | 2020-02-15 16:30 | CT Report ---
Reason: hematuria; eval for renal stones/obstruction Procedure Date: 02/15/2020 Accession Number: [id number] / [id number] Procedure: CT - Abdomen/Pelvis WO CPT Code: Final Report FULL RESULT: PROCEDURE: Abdomen/Pelvis WO INDICATIONS: hematuria; eval for renal stones/obstruction TECHNIQUE: Noncontrast 5 mm thick sections acquired from the diaphragms to the symphysis. 5 mm coronal and sagittal reformats were then performed. For radiation dose reduction, the following was used: automated exposure control, adjustment of mA and/or kV according to patient size. COMPARISON: None available. FINDINGS: Image quality: Excellent. ABDOMEN: Lung bases: There is mild dependent atelectasis. Heart size is enlarged. Solid organs: Noncontrast evaluation of liver demonstrates no focal hepatic lesions. Gallbladder appears within normal limits without calcified gallstones. Pancreas is normal in contours. No adrenal nodules. Kidneys demonstrate no renal stones or hydronephrosis. No perinephric stranding. There is a small right renal cortical cyst. The ureters are nondistended bilaterally. Peritoneum and bowel: Unenhanced small bowel loops demonstrate normal wall thickness and caliber. There is segmental wall thickening in the proximal sigmoid colon with mild fat stranding and luminal narrowing. There is a small to moderate amount of colonic stool without associated high-grade bowel obstruction. There is fat stranding and trace free fluid along the left sigmoid mesocolon. No free air. Nodes and vessels: There are multiple enlarged retroperitoneal lymph nodes with associated mild fat stranding. These include an aortocaval node on series 3 image 37 measuring up to 1.2 cm in short axis. A left para-aortic node at the level of the bifurcation measures up to 1.1 cm. A left external iliac node measures up to 1.0 cm. The findings most likely represent metastatic disease. Aorta and inferior vena cava are normal in caliber. Miscellaneous: No ventral hernias. PELVIS: Genitourinary: Bladder wall thickness is normal. The prostate is mildly prominent in size. Miscellaneous: No inguinal hernias or adenopathy. Bones: No suspicious bony lesions. No vertebral body compression fractures. IMPRESSION: 1. Enlarged retroperitoneal lymph nodes highly suspicious for metastatic disease. 2. Segmental wall thickening in the proximal sigmoid colon with associated fat stranding is suggestive of an intramural mass. The findings are suspicious for colon cancer. A repeat study with intravenous contrast is recommended for further evaluation as well as clinical correlation. No evidence of associated high-grade obstruction. Findings discussed with Salome Raya on 02/15/2020 at 4:20 PM. Reviewed by: Fernandez Lizarraga MD on 02/15/2020 4:28 PM PDT Approved by: Fernandez Lizarraga MD on 02/15/2020 4:28 PM PDT Station ID: [id number]
[2020-02-15] MEDS ORDERED: IOVERSOL 320 100 ML VIAL IVP ONE ×2 (16:41→17:03)
[2020-02-15] MEDS ORDERED: KETOROLAC 30 MG/ML VIAL IVP STA (17:10)
--- NOTE | 2020-02-15 17:18 | CT Report ---
Reason: retroperitoneal LAD on non con CT Procedure Date: 02/15/2020 Accession Number: [id number] / [id number] Procedure: CT - Abdomen/Pelvis W CPT Code: Final Report FULL RESULT: PROCEDURE: Abdomen/Pelvis W INDICATIONS: retroperitoneal LAD on non con CT CONTRAST: IV CONTRAST: Optiray 320 ml: 100 PO CONTRAST: *NO PO CONTRAST TECHNIQUE: After the administration of oral and intravenous contrast, 5 mm thick sections acquired from the diaphragms to the symphysis. 5 mm thick coronal and sagittal reformats were acquired. For radiation dose reduction, the following was used: automated exposure control, adjustment of mA and/or kV according to patient size. COMPARISON: CT abdomen pelvis 02/15/2020 FINDINGS: Image quality: Excellent. ABDOMEN: Lung bases: Lung bases are clear. Heart size is normal. Solid organs: Liver and spleen are normal in size and enhancement. No hepatic lesions are identified. Gallbladder is unremarkable Biliary system is non dilated. Pancreas enhances normally. No adrenal nodules. Kidneys demonstrate normal size and enhancement, without hydronephrosis. Right renal cyst is noted. Peritoneum and bowel: Bowel loops are nonobstructive. As noted on prior exam, there is focal area of segmental wall thickening in the proximal sigmoid colon with associated luminal narrowing and fat stranding. There is no obstruction proximally. No free fluid or air. Nodes and vessels: Aorta and inferior vena cava are normal in size. As identified on prior exams, multiple enlarged retroperitoneal lymph nodes are identified. The largest measures and aortocaval lymph node measuring 12 mm in short axis. Miscellaneous: No ventral hernias. PELVIS: Genitourinary: Bladder wall thickness is normal. Miscellaneous: No inguinal hernias or adenopathy. Bones: No suspicious bony lesions. No vertebral body compression fractures. IMPRESSION: 1. Focal segmental sigmoid colonic thickening with luminal narrowing without evidence of associated obstruction. While this could represent focal colitis, overall appearance is highly concerning for neoplasm. In addition, retroperitoneal adenopathy is present concerning for metastatic disease. Colonoscopy is recommended. 2. No hepatic metastatic disease. Reviewed by: Shameka Millan MD on 02/15/2020 5:17 PM PDT Approved by: Shameka Millan MD on 02/15/2020 5:17 PM PDT Station ID: [id number]
[2020-02-15 18:43] VITALS: BP 149/100
== END 2020-02-15 18:41 | disposition home or self-care (01) ==
LOC: ED 13:38
DX: R59.0 Localized enlarged lymph nodes (principal); K63.89 Other specified diseases of intestine; R31.0 Gross hematuria; I10 Essential (primary) hypertension; E78.5 Hyperlipidemia, unspecified; E03.9 Hypothyroidism, unspecified; Z79.82 Long term (current) use of aspirin; Z87.442 Personal history of urinary calculi
CPT/HCPCS: 36415; 74176; 74177; 80053; 81001; 83690; 85025; 96372; 96374; 99284; Q9967; 81003; 87086

== ENCOUNTER 2020-03-21 12:23 | Outpatient (CLI) | payer MEDICARE | END 2020-03-21 12:24 | disposition home or self-care (01) | LOC: LAB 12:23 | PROVIDERS: ATTEND Surgery | DX: Z01.818 Encounter for other preprocedural examination (principal); C18.7 Malignant neoplasm of sigmoid colon; Z20.828 Contact with and (suspected) exposure to other viral communicable diseases ==

== ENCOUNTER 2020-03-26 11:13 | Inpatient (IN) | payer MEDICARE ==
[2020-03-26] MEDS ORDERED: LACTATED RINGERS 1,000 ML IV ONE ×3 (11:21→15:55)
[2020-03-26] MEDS ORDERED: metroNIDAZOLE 500 MG/100 ML 500 MG/100 ML BAG ONE (11:24)
[2020-03-26] MEDS ORDERED: CEFAZOLIN SODIUM IN 0.9 % NACL 2 GM/100 ML BAG IV ONE (11:24)
[2020-03-26] MEDS ORDERED: GABAPENTIN 400 MG CAPSULE ONE (11:52)
[2020-03-26] MEDS ORDERED: CELECOXIB 100 MG CAPSULE PO ONE (11:52)
[2020-03-26] MEDS ORDERED: ACETAMINOPHEN 1,000 MG/100 ML 100 ML IV ONE ×2 (11:53→12:39)
[2020-03-26] MEDS ORDERED: ePHEDrine 50 MG/ML VIAL IVP ONE (12:39)
[2020-03-26] MEDS ORDERED: MIDAZOLAM 2 MG/2 ML VIAL IVP ONE (12:39)
[2020-03-26] MEDS ORDERED: PROPOFOL 200 MG/20 ML VIAL IVP ONE (12:39)
[2020-03-26] MEDS ORDERED: LIDOCAINE-MPF 2% 5 ML VIAL IM ONE (12:39)
[2020-03-26] MEDS ORDERED: ROCURONIUM 50 MG/5 ML VIAL IVP ONE (12:39)
[2020-03-26] MEDS ORDERED: KETAMINE 500 MG/10 ML VIAL IVP ONE (12:39)
[2020-03-26] MEDS ORDERED: fentaNYL 100 MCG/2 ML VIAL IVP ONE (12:39)
--- NOTE | 2020-03-26 12:58 | ANESTHESIA ---
Pre-Anesthesia VS, & Labs - Diagnosis Colon Cancer - Procedure Colectomy with colostomy Vital Signs: Temp Pulse Resp BP Pulse Ox 36.6 C 84 17 151/106 H 100 03/26/20 11:34 03/26/20 11:34 03/26/20 11:34 03/26/20 11:34 03/26/20 11:34 Height 5 ft 4 in Weight (kg) 69 kg Body Mass Index 24.0 - NPO >8 hours - Lab Results Current Lab Results: Laboratory Tests 03/26/20 11:39: POC Whole Bld Glucose 108 H Lab results reviewed: Yes Home Medications and Allergies Levothyroxine [Synthroid] 175 mcg PO QDAC 02/16/19 Losartan [Cozaar] 50 mg PO DAILY 02/16/19 Allergies/Adverse Reactions: Allergies Allergy/AdvReac Type Severity Reaction Status Date / Time No Known Drug Allergies Allergy Verified 02/15/20 13:48 Anes History & Medical History - Anesthetic History Anesthesia Complications: reports: No previous complications Family history of Anesthesia Complications: Denies Family history of Malignant Hyperthermia: Denies - Medical History Cardiovascular: reports: Hypertension, High cholesterol Pulmonary: reports: None Gastrointestinal: reports: Other Urinary: reports: Other Neuro: reports: None Musculoskeletal: reports: None Endocrine/Autoimmune: reports: HyPOthyroidism Blood Disorders: reports: None Skin: reports: None Smoking Status: Never smoker - Surgical History General: Colonoscopy Eyes Ears Nose Throat (EENT): Cataracts Results - EKG Results EKG Comparison: Unchanged from prior EKG - Echo Results Echo Results: Report reviewed Exam General: Alert, Oriented x3, Cooperative Dental: WNL Mouth Openin Fingerbreadth Neck Mobility: Normal Mallampati classification: I Thyromental Distance: 4-6 cm Respiratory: Lungs clear Cardiovascular: Regular rate (Multiple missing teeth right upper and both sides lower) Plan Anesthesia Type: General, Epidural Consent for Procedure(s) Verified and Reviewed: Yes Code Status: Attempt Resuscitation ASA classification: 3-Severe systemic disease Is this case an emergency?: No
[2020-03-26] MEDS ORDERED: BUPIVACAINE 0.25% PF 30 ML VIAL ONE (13:30)
[2020-03-26] MEDS ORDERED: BUPIVACAINE 0.25% PF 30 ML VIAL SUBQ ONE (14:50)
[2020-03-26] MEDS: LACTATED RINGERS 1,000 ML IV SCH (18:12)
[2020-03-26] MEDS: FAMOTIDINE 20 MG TABLET PO SCH (20:15)
[2020-03-26] MEDS: ceFAZolin 2 GM in SODIUM CHLORIDE 0.9% 100ML 100 ML IV SCH (21:06)
[2020-03-26] MEDS: metroNIDAZOLE 500 MG/100 ML 500 MG/100 ML BAG IV SCH (21:11)
[2020-03-27] MEDS: HYDROcod/ACETAM 5/325 MG TABLET PO PRN ×5 (04:01→21:04)
[2020-03-27] MEDS: ceFAZolin 2 GM in SODIUM CHLORIDE 0.9% 100ML 100 ML IV SCH (06:00)
[2020-03-27] MEDS: LACTATED RINGERS 1,000 ML IV SCH ×3 (06:03→23:58)
[2020-03-27] MEDS: LEVOTHYROXINE 100 MCG TABLET PO SCH (06:09)
[2020-03-27] MEDS: metroNIDAZOLE 500 MG/100 ML 500 MG/100 ML BAG IV SCH (06:49)
[2020-03-27] MEDS: LOSARTAN 50 MG TABLET PO SCH (08:05)
[2020-03-27] MEDS: ENOXAPARIN 40 MG/0.4 ML SYRINGE SUBQ SCH (08:07)
[2020-03-27] MEDS: FAMOTIDINE 20 MG TABLET PO SCH ×2 (08:14→20:37)
--- NOTE | 2020-03-27 11:11 | PHARMACY PROGRESS NOTE ---
- Best Possible Medication History Admit Date and Time: 03/26/20 1113 Processed by: Pharmacy Medication History completed: Yes Patient Interview: Completed Secondary Source(s): Insurance records As the person ultimately responsible for medication therapy, providers are able to order a medication from an existing home medication list in [facility] via the "Reconcile Routine" prior to Confirmation of that medication by underwriting support specialist. Such practice is discouraged except when the physician, in their clinical judgment, deems that a medical need exists for a medication without regard to previous use.
[2020-03-27] MEDS ORDERED: MAGNESIUM SULFATE 1 GM/2 ML VIAL IV ONE (12:43)
--- NOTE | 2020-03-27 12:58 | PROVIDER PROGRESS NOTE ---
Subjective - Prog Note Date Prog Note Date: 03/27/20 - Subjective Subjective: not passing gas from above or below. feels distended. denies nausea Objective - Vital Signs/Intake & Output Vital Signs: Vital Signs x48h Temp Pulse Resp BP Pulse Ox 03/27/20 07:59 36.8 C 58 L 18 112/68 98 03/27/20 05:00 36.8 C 67 18 119/77 96 Intake & Output: Intake & Output 03/24/20 03/25/20 03/26/20 03/27/20 23:59 23:59 23:59 23:59 Intake Total 1500 1380 Output Total 1200 800 Balance 300 580 - Objective General Appearance: positive: No acute distress Eyes Bilateral: positive: Normal inspection ENT: positive: No signs of dehydration Neck: positive: Nml inspection Respiratory: positive: No respiratory distress Abdomen: positive: Other (progressive distension since this am) - Lab Results Other Labs: Lab Results x24hrs 03/27/20 03/27/20 03/26/20 Range/Units 11:54 07:57 20:54 POC Whole Bld Glucose 110 H 91 116 H (70 - 100) mg/dL 03/26/20 Range/Units 18:17 POC Whole Bld Glucose 114 H (70 - 100) mg/dL Assessment/Plan - Problem List (1) Retroperitoneal lymphadenopathy Impression: postop day 1 colectomy for cancer. He denies nausea. He is bloated/ distended. Diet as tolerated. He prefers to have the bush out tomorrow.
[2020-03-27] MEDS: HYDROmorphone 0.5 MG/0.5 ML SYRINGE IVP PRN ×3 (17:03→23:43)
[2020-03-27] MEDS ORDERED: LACTATED RINGERS 500 ML IV ONE ×2 (18:59→22:00)
[2020-03-28] MEDS: HYDROcod/ACETAM 5/325 MG TABLET PO PRN ×3 (03:47→18:03)
[2020-03-28] MEDS: ONDANSETRON ODT 4 MG TABLET TL PRN (05:48)
[2020-03-28] MEDS: HYDROmorphone 0.5 MG/0.5 ML SYRINGE IVP PRN ×2 (05:52→09:11)
[2020-03-28] MEDS: LEVOTHYROXINE 100 MCG TABLET PO SCH (06:29)
[2020-03-28] MEDS: FAMOTIDINE 20 MG TABLET PO SCH ×2 (08:05→19:10)
[2020-03-28] MEDS: LOSARTAN 50 MG TABLET PO SCH (08:06)
[2020-03-28] MEDS: ENOXAPARIN 40 MG/0.4 ML SYRINGE SUBQ SCH (09:28)
[2020-03-28] MEDS: LACTATED RINGERS 1,000 ML IV SCH ×2 (09:30→18:56)
[2020-03-28 11:23] LABS: BASOPHILS % (AUTO) 0.3 %; EOSINOPHILS # (AUTO) 0.3 10^3/uL (0.0-0.7); EOSINOPHILS % (AUTO) 3.5 %; HGB - HEMOGLOBIN 10.1 g/dL (14.0-18.0); LYMPHOCYTES # (AUTO) 1.8 10^3/uL (1.5-3.5); LYMPHOCYTES % (AUTO) 23.6 %; MEAN CORPUSCULAR HEMOGLOBIN 31.9 pg (27.0-31.0); MEAN CORPUSCULAR HGB CONC 33.7 g/dL (32.0-36.0); MEAN CORPUSCULAR VOLUME 94.6 fL (80.0-94.0); MEAN PLATELET VOLUME 8.7 fL (7.4-11.4); MONOCYTES # (AUTO) 0.5 10^3/uL (0.0-1.0); MONOCYTES % (AUTO) 5.8 %; NEUTROPHILS # (AUTO) 5.1 10^3/uL (1.5-6.6); NEUTROPHILS % (AUTO) 66.4 %; PLT - PLATELET COUNT 155 10^3/uL (130-450); RED BLOOD COUNT 3.17 10^6/uL (4.70-6.10); RED CELL DISTRIBUTION WIDTH 12.8 % (12.0-15.0); WHITE BLOOD COUNT 7.7 x10^3/uL (4.8-10.8)
[2020-03-28 11:36] LABS: ALBUMIN 3.7 g/dL (3.2-5.5); ALBUMIN/GLOBULIN RATIO 1.1 (1.0-2.2); CALCIUM 8.1 mg/dL (8.5-10.3); CREATININE 1.2 mg/dL (0.6-1.2); TOTAL PROTEIN 7.1 g/dL (6.7-8.2)
--- NOTE | 2020-03-28 12:11 | PROVIDER PROGRESS NOTE ---
Subjective - Prog Note Date Prog Note Date: 03/28/20 - Subjective Pt reports feeling: Improved (still uncomfortable with incsional pain and his preop back pain. feeling better today. No appetite. No nausea. Not passing gas) Objective - Vital Signs/Intake & Output Vital Signs: Vital Signs x48h Temp Pulse Pulse Pulse Resp BP Pulse Ox 03/28/20 11:03 36.7 C 63 16 112/65 95 03/28/20 09:13 78 136/86 H 03/28/20 08:10 37 C 86 16 97 03/28/20 07:52 37 C 86 18 159/85 H 94 03/28/20 05:23 36.6 C 81 16 156/83 H 94 Intake & Output: Intake & Output 03/25/20 03/26/20 03/27/20 03/28/20 23:59 23:59 23:59 23:59 Intake Total 1500 3745.000 1885.000 Output Total 1200 1650 1575 Balance 300 2095.000 310.000 - Objective General Appearance: positive: No acute distress, Alert Eyes Bilateral: positive: Normal inspection, PERRL, EOMI Neck: positive: No JVD Respiratory: positive: No respiratory distress Abdomen: positive: Other (mild to moderate distension. no peritoneal signs. dressing c/d/i. no erythema) Extremities: positive: No pedal edema Neurologic/Psychiatric: positive: Oriented x3 - Lab Results Fish Bones: 03/28/20 11:06 03/28/20 11:06 Other Labs: Lab Results x24hrs 03/28/20 03/28/20 Range/Units 11:06 11:06 WBC 7.7 (4.8-10.8) x10^3/uL RBC 3.17 L (4.70-6.10) 10^6/uL Hgb 10.1 L (14.0-18.0) g/dL Hct 30.0 L (42.0-52.0) % MCV 94.6 H (80.0-94.0) fL MCH 31.9 H (27.0-31.0) pg MCHC 33.7 (32.0-36.0) g/dL RDW 12.8 (12.0-15.0) % Plt Count 155 (130-450) 10^3/uL MPV 8.7 (7.4-11.4) fL Neut # (Auto) 5.1 (1.5-6.6) 10^3/uL Lymph # (Auto) 1.8 (1.5-3.5) 10^3/uL [place] # (Auto) 0.5 (0.0-1.0) 10^3/uL Eos # (Auto) 0.3 (0.0-0.7) 10^3/uL Baso # (Auto) 0.0 (0.0-0.1) 10^3/uL Absolute Nucleated RBC 0.00 x10^3/uL Nucleated RBC % 0.0 /100WBC Sodium 135 (135-145) mmol/L Potassium 3.4 L (3.5-5.0) mmol/L Chloride 101 (101-111) mmol/L Carbon Dioxide 25 (21-32) mmol/L Anion Gap 9.0 (6-13) BUN 16 (6-20) mg/dL Creatinine 1.2 (0.6-1.2) mg/dL Estimated GFR (MDRD) 61 L (>89) Glucose 115 H (70-100) mg/dL Calcium 8.1 L (8.5-10.3) mg/dL Total Bilirubin 1.0 (0.2-1.0) mg/dL AST 18 (10-42) IU/L ALT 11 (10-60) IU/L Alkaline Phosphatase 42 (42-121) IU/L Total Protein 7.1 (6.7-8.2) g/dL Albumin 3.7 (3.2-5.5) g/dL Globulin 3.4 (2.1-4.2) g/dL Albumin/Globulin Ratio 1.1 (1.0-2.2) Assessment/Plan - Problem List (2) Colonic mass Impression: ileus. diet as tolerated. home when adequate po. He has significant retroperitoneal disease which will likely slow his return of bowel function
[2020-03-29] MEDS: HYDROcod/ACETAM 5/325 MG TABLET PO PRN ×5 (01:31→19:35)
[2020-03-29] MEDS: HYDROmorphone 0.5 MG/0.5 ML SYRINGE IVP PRN (03:20)
[2020-03-29] MEDS: ONDANSETRON ODT 4 MG TABLET TL PRN ×2 (03:21→23:53)
[2020-03-29] MEDS: LACTATED RINGERS 1,000 ML IV SCH (04:56)
[2020-03-29] MEDS: LEVOTHYROXINE 100 MCG TABLET PO SCH (06:00)
[2020-03-29] MEDS: LOSARTAN 50 MG TABLET PO SCH (09:17)
[2020-03-29] MEDS: FAMOTIDINE 20 MG TABLET PO SCH ×2 (09:17→22:34)
[2020-03-29] MEDS: ENOXAPARIN 40 MG/0.4 ML SYRINGE SUBQ SCH (10:16)
--- NOTE | 2020-03-29 15:10 | PROVIDER PROGRESS NOTE ---
Subjective - Prog Note Date Prog Note Date: 03/29/20 - Subjective Pt reports feeling: Improved (starting to pass gas) Objective - Vital Signs/Intake & Output Vital Signs: Vital Signs x48h Temp Pulse Resp BP Pulse Ox 03/29/20 13:00 36.6 C 79 16 146/76 H 94 03/29/20 09:20 36.7 C 83 16 144/68 H 89 L Intake & Output: Intake & Output 03/26/20 03/27/20 03/28/20 03/29/20 23:59 23:59 23:59 23:59 Intake Total 1500 3745.000 3666.670 1470 Output Total 1200 1650 2850 Balance 300 2095.000 438.109 4519 - Objective General Appearance: positive: No acute distress, Alert Respiratory: positive: No respiratory distress Abdomen: positive: Other (soft mild distension and echymosis no erythema) - Lab Results Fish Bones: 03/28/20 11:06 03/28/20 11:06 Assessment/Plan - Problem List (2) Colonic mass Impression: post op day 3. starting to pass gas. home when less distended
[2020-03-29] MEDS ORDERED: BENZOCAINE/MENTHOL LOZENGE MM PRN (23:44)
[2020-03-30] MEDS: HYDROcod/ACETAM 5/325 MG TABLET PO PRN ×5 (01:45→19:01)
[2020-03-30] MEDS: LEVOTHYROXINE 100 MCG TABLET PO SCH (06:15)
[2020-03-30] MEDS: FAMOTIDINE 20 MG TABLET PO SCH ×2 (09:12→20:33)
[2020-03-30] MEDS: SODIUM CHLORIDE FLUSH 0.9% 10 ML SYRINGE IVP PRN (09:13)
[2020-03-30] MEDS: ENOXAPARIN 40 MG/0.4 ML SYRINGE SUBQ SCH (09:13)
[2020-03-30] MEDS: LOSARTAN 50 MG TABLET PO SCH (09:21)
[2020-03-30] MEDS: polyethylene glycoL 3350 17 GM PACKET PO SCH (13:59)
[2020-03-30] MEDS: DOCUSATE SODIUM 250 MG CAPSULE PO SCH (13:59)
--- NOTE | 2020-03-30 14:16 | Discharge Plan ---
Discharge Plan Problem Reviewed?: Yes Disposition: Home, Self Care Prescriptions: methocarbamoL [Methocarbamol] 750 mg PO Q6HR #30 tablet Hydrocodone/Acetaminophen [Hydrocodone-Acetamin 7.5-325] 1 tab PO Q6H PRN #40 tab PRN Reason: Pain Diet: Soft (Low fiber) Activity Restrictions: No heavy lift/push/pull Shower Restrictions: Yes (No submersive bathing) Driving Restrictions: Yes (No driving while taking narcotics) Weight Bearing: Other (As tolerated) Instruction Topics: Acetaminophen Hydrocodone tablets or capsules, Bowel Surg Recovery, COVID-19 [facility], COVID-19 [facility] Department Statement Health Concerns: Follow up with Dr. Dumont in 1-2weeks Plan of Treatment: Soft, low residue diet, daily miralax and colace, call as per instructions below. Assessment: Patient was assessed for discharge on March 30, at which time he remained distended with only minimal bowel function. Together with significant postoperative pain which was suboptimally addressed with oral analgesia, we added muscle relaxants as well as Toradol with improved effect. Patient at this time given persistent ileus and slow return of bowel function together with suboptimal pain control was afforded 1 additional night of inpatient care. On the day of discharge March 31 patient had significant improvement in his abdominal distention, afebrile vital signs stable, multiple bowel movements and improved pain control. We will add muscle relaxants to his outpatient regimen and patient will follow-up with Dr. Dumont. Additional Instructions or Follow Up instructions: DISCHARGE INSTRUCTIONS TEMPLATE: No heavy lifting, pushing, or pulling. Stairs are allowed, no strenuous/exertional activities. 5-10lbs weight carrying limit (i.e. gallon of milk) If provided, abdominal binder while out of bed and while ambulating. Call or proceed to clinic/ER for fevers, severe pain, nausea, vomiting, inability to pass flatus/stool, bleeding, wound redness/discharge, weakness, excessively loose stool/diarrhea, or for any other reasonably worrisome symptom or concern. Soft diet, no raw vegetables, avoid high fiber foods. Colace 100mg by mouth twice to three times daily while taking narcotic pain medication. If no bowel movement in 24-48hr, may take 17g Miralax in 8oz water twice daily until bowel movement. May shower, no submersive bathing. Follow up in clinic in 2-4 weeks for wound check and staple removal. No driving while taking narcotic pain medications. Follow up with primary care provider and/or medical subspecialist following discharge as well. No Smoking: If you smoke, Please STOP! Call for help. Follow-up with: Gwen Berumen PA-C [Primary Care Provider] - Sunil Dumont MD [Provider Admit Priv/Credential] -
[2020-03-30] MEDS: HYDROmorphone 0.5 MG/0.5 ML SYRINGE IVP PRN ×3 (16:32→22:31)
--- NOTE | 2020-03-30 21:09 | DISCHARGE SUMMARY ---
"Discharge Summary Admit Date: 03/26/20 Discharge Date: 03/31/20 Discharging Provider: Dorothea Primary Care Provider: Julia Code Status: Attempt Resuscitation Condition at Discharge: Fair Discharge Disposition: 01 Home, Self Care - DIAGNOSES Admission Diagnoses: 1. 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 Abdominal pain and distention 3. Concerns for metastases Discharge Diagnoses with Status of Each Condition: 1. 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 Abdominal pain and distention - RESOLVED 3. Concerns for metastases - CONFIRMED/PERSISTS 4. Status post resection with primary anastomosis - COMPLETED 5. Postoperative ileus, severe - RESOLVED 6. Peritoneal carcinomatosis, sparse - CONFRIMED 7. Retroperitoneal lymphadenopathy - CONFIRMED - HPI History of Present Illness: This is a 64-year-old male with abdominal discomfort reportedly over 2 months. He has had constipation-like symptoms. In addition, he has had pain with movement localized to the left lower quadrant and his back. He had CT imaging revealing significant tumor burden within the sigmoid colon and associated retroperitoneal lymph lymphadenopathy. 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 Presents for open colectomy possible colostomy which was discussed at the time of his clinic visit with all risks discussed. - CONSULTS | PROCEDURES Procedures: 1. Exploratory laparotomy 2. Open sigmoid colectomy/anterior resection 3. Primary handsewn end-to-end colo-proctostomy - HOSPITAL COURSE Hospital Course: This is a 64-year-old male with abdominal discomfort reportedly over 2 months. He has had constipation-like symptoms. In addition, he has had pain with movem ent localized to the left lower quadrant and his back. He had CT imaging revealing significant tumor burden within the sigmoid colon and associated retroperitoneal lymph lymphadenopathy. 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 Presents for open colectomy possible colostomy which was discussed at the time of his clinic visit with all risks discussed. Patient was admitted to [facility] surgical floor following the below listed proc edure: 1. Exploratory laparotomy 2. Open sigmoid colectomy/anterior resection 3. Primary handsewn end-to-end colo-proctostomy Intraoperatively the patient had the following findings, with their status at the time of discharge. 1. 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 Abdominal pain and distention - RESOLVED 3. Concerns for metastases - CONFIRMED/PERSISTS 4. Status post resection with primary anastomosis - COMPLETED 5. Postoperative ileus, severe - RESOLVED 6. Peritoneal carcinomatosis, sparse - CONFRIMED 7. Retroperitoneal lymphadenopathy - CONFIRMED Patient underwent operative intervention as listed in the electronic medical record. Tolerated procedure well for which there was no complication. Postoperatively the patient was managed for postoperative analgesia and resumption of bowel function. Patient had successfully passed trial of void. Patient had significant prolonged postoperative ileus that was managed carefully with diet, aggressive bowel regimen, and careful fluid resuscitation. Ultimately on postoperative day #4, he began having overall improvement of his abdominal distention with improved bowel function, however remained persistently distended with ongoing nausea although no vomiting, and was kept overnight for an additional day towards optimizing his bowel regimen including laxatives and stool softeners. Tolerated oral intake without any complication. Denied nausea denied vomiting. Was advanced for diet without any complication. Discharge instructions given. Analgesia with [place] amongst others provided at time of discharge. Patient plan for follow-up and will be notified of pathology once returned. - ALLERGIES Allergies/Adverse Reactions: Allergies Allergy/AdvReac Type Severity Reaction Status Date / Time No Known Drug Allergies Allergy Verified 04/16/20 10:22 - MEDICATIONS Home Medications: Ambulatory Orders Medication Instructions Recorded Confirmed RX: Aspirin Chewable [[place] 81 mg PO DAILY #30 tablet 02/17/19 04/16/20 Aspirin] RX: Atorvastatin Calcium 20 mg PO QPM 03/27/20 04/16/20 RX: Hydrocodone/Acetaminophen 1 tab PO Q6H PRN #40 tab 03/30/20 04/16/20 [Hydrocodone-Acetamin 7.5-325] RX: Levothyroxine [Synthroid] 200 mcg PO QDAC tablet 03/30/20 04/16/20 RX: Losartan [Cozaar] 50 mg PO DAILY tablet 03/30/20 04/16/20 methocarbamoL [Methocarbamol] 500 mg PO PRN PRN 04/10/20 04/16/20 Hydrocodone/Acetaminophen 1 each PO Q4HR PRN #30 tablet 04/16/20 [Hydrocodone-Acetamin 5-325 mg] Lidocaine/Prilocain 2.5% Cream 30 gm TOP DAILY PRN #1 tube 04/17/20 [Emla 2.5% Cream] RX: OLANZapine [Olanzapine] 5 mg PO UD #24 tablet 04/17/20 RX: Ondansetron HCl [Zofran] 8 mg PO BID PRN #30 tablet 04/17/20 - PHYSICAL EXAM AT DISCHARGE General Appearance: positive: No acute distress, Alert Eyes Bilateral: positive: Normal inspection, PERRL, EOMI ENT: positive: ENT inspection nml Neck: positive: Nml inspection Respiratory: positive: Chest non-tender, No respiratory distress, Breath sounds nml. negative: Wheezes, Rales, Rhonchi Cardiovascular: positive: Regular rate & rhythm Abdomen: positive: Non-tender, No distention, Other (Soft, nontender, nondis tended, with significant improvement in his level of distention since my assumption of this patient's postoperative care.). negative: Guarding, Rebound Skin: positive: Color nml Extremities: positive: Non-tender, Full ROM, Nml appearance Neurologic/Psychiatric: positive: Oriented x3, CN's nml (2-12) - LABS Result Diagrams: 03/28/20 11:06 03/28/20 11:06 - SEPSIS Current Stage of Sepsis: Ruled out"
[2020-03-30] MEDS: KETOROLAC 30 MG/ML VIAL IVP SCH (23:59)
[2020-03-30] MEDS: methocarbamoL 500 MG TABLET PO SCH (23:59)
[2020-03-31] MEDS: HYDROcod/ACETAM 5/325 MG TABLET PO PRN ×2 (04:27→09:11)
[2020-03-31] MEDS: methocarbamoL 500 MG TABLET PO SCH ×2 (06:42→12:41)
[2020-03-31] MEDS: KETOROLAC 30 MG/ML VIAL IVP SCH ×2 (06:42→12:41)
[2020-03-31] MEDS: LEVOTHYROXINE 100 MCG TABLET PO SCH (06:43)
[2020-03-31] MEDS ORDERED: MAGNESIUM HYDROXIDE 2,400 MG/30 ML UDC PO ONE (09:00)
[2020-03-31] MEDS: DOCUSATE SODIUM 250 MG CAPSULE PO SCH (09:09)
[2020-03-31] MEDS: polyethylene glycoL 3350 17 GM PACKET PO SCH (09:09)
[2020-03-31] MEDS: FAMOTIDINE 20 MG TABLET PO SCH (09:11)
[2020-03-31] MEDS: SODIUM CHLORIDE FLUSH 0.9% 10 ML SYRINGE IVP PRN ×2 (09:11→12:42)
[2020-03-31] MEDS: ENOXAPARIN 40 MG/0.4 ML SYRINGE SUBQ SCH (09:11)
[2020-03-31] MEDS: LOSARTAN 50 MG TABLET PO SCH (09:11)
[2020-03-31 16:34] VITALS: BP 147/85
== END 2020-03-31 17:50 | disposition home or self-care (01) | DRG 330 ==
LOC: MS2 11:13
PROVIDERS: ADMIT Surgery; ATTEND Surgery
PROC: 0DTN0ZZ Resection of Sigmoid Colon, Open Approach (ICD-10-PCS; principal; 2020-03-26 12:30)
DX: C18.7 Malignant neoplasm of sigmoid colon (principal); C77.2 Secondary and unspecified malignant neoplasm of intra-abdominal lymph nodes; C78.6 Secondary malignant neoplasm of retroperitoneum and peritoneum; K56.7 Ileus, unspecified; I10 Essential (primary) hypertension; E03.9 Hypothyroidism, unspecified; G89.18 Other acute postprocedural pain; E78.5 Hyperlipidemia, unspecified; K21.9 Gastro-esophageal reflux disease without esophagitis; R76.11 Nonspecific reaction to tuberculin skin test without active tuberculosis; M54.9 Dorsalgia, unspecified; Z79.82 Long term (current) use of aspirin; Z79.899 Other long term (current) drug therapy; Z87.891 Personal history of nicotine dependence
CPT/HCPCS: 36415; 80053; 85025; 88309; 88341; 88342; A9270; J0131; J0690; J1170; J1650; J7120; Q0162

== ENCOUNTER 2020-04-12 14:45 | Outpatient (CLI) | payer MEDICARE | END 2020-04-12 14:46 | disposition home or self-care (01) | LOC: COV 14:45 | PROVIDERS: ATTEND Surgery | DX: Z01.812 Encounter for preprocedural laboratory examination (principal); C18.9 Malignant neoplasm of colon, unspecified; Z11.59 Encounter for screening for other viral diseases ==

== ENCOUNTER 2020-04-16 09:42 | Day surgery (SDC) | payer MEDICARE ==
[~2020-04-16 09:42] MED LIST changes: -ISOSORBIDE MONONITRATE ER 30 MG TABLET PO SCH; +LIDOCAINE 1% 50 ML MDV ONE
[2020-04-16] MEDS ORDERED: CEFAZOLIN SODIUM IN 0.9 % NACL 2 GM/100 ML BAG IV ONE (09:50)
[2020-04-16] MEDS ORDERED: LACTATED RINGERS 1,000 ML IV ONE ×2 (10:11→12:15)
--- NOTE | 2020-04-16 10:23 | ANESTHESIA ---
Pre-Anesthesia VS, & Labs - Diagnosis colon cancer - Procedure port placement Vital Signs: Temp Pulse Resp BP Pulse Ox 36.5 C 82 12 177/98 H 100 04/16/20 09:55 04/16/20 09:55 04/16/20 09:55 04/16/20 09:55 04/16/20 09:55 Height 5 ft 4 in Weight (kg) 64.7 kg Body Mass Index 25.3 - NPO >8 hours Home Medications and Allergies Atorvastatin Calcium 20 mg PO QPM 03/27/20 methocarbamoL [Methocarbamol] 500 mg PO PRN PRN 04/10/20 synthroid Allergies/Adverse Reactions: Allergies Allergy/AdvReac Type Severity Reaction Status Date / Time No Known Drug Allergies Allergy Verified 04/16/20 10:22 Anes History & Medical History - Anesthetic History Anesthesia Complications: reports: Post-Operative Nausea/Vomiting - Medical History Cardiovascular: reports: Hypertension, High cholesterol Pulmonary: reports: None Gastrointestinal: reports: Other (colon cancer) Urinary: reports: None Neuro: reports: None Musculoskeletal: reports: None Endocrine/Autoimmune: reports: HyPOthyroidism Blood Disorders: reports: None Skin: reports: None Smoking Status: Former smoker (quit 16 years ago) Psychosocial: reports: No issues indicated - Surgical History General: Colonoscopy Eyes Ears Nose Throat (EENT): Cataracts Orthopedic: Other Exam General: Alert, Oriented x3, Cooperative, No acute distress Dental: WNL, Poor dentition Mouth Openin Fingerbreadth Neck Mobility: Normal Mallampati classification: I Thyromental Distance: 4-6 cm Respiratory: Lungs clear, Normal breath sounds, No respiratory distress, No accessory muscle use Cardiovascular: Regular rate, Normal S1, Normal S2, No murmurs Mental/Cognitive Status: Alert/Oriented X3, Normal for patient Plan Anesthesia Type: MAC Consent for Procedure(s) Verified and Reviewed: Yes Code Status: Attempt Resuscitation ASA classification: 3-Severe systemic disease Is this case an emergency?: No
[2020-04-16] MEDS ORDERED: ePHEDrine 50 MG/ML VIAL IVP PRN (10:54)
[2020-04-16] MEDS ORDERED: ATROPINE ABBOJECT 1 MG/10 ML SYRINGE IVP PRN (10:54)
[2020-04-16] MEDS ORDERED: MORPHINE 2 MG/ML CARPUJECT IVP PRN (10:54)
[2020-04-16] MEDS ORDERED: ONDANSETRON 4 MG/2 ML VIAL IVP PRN (10:54)
[2020-04-16] MEDS ORDERED: fentaNYL 100 MCG/2 ML VIAL IVP PRN (10:54)
[2020-04-16] MEDS ORDERED: NALOXONE 0.4 MG/ML VIAL IVP PRN (10:54)
[2020-04-16] MEDS ORDERED: METOCLOPRAMIDE 10 MG/2 ML VIAL IVP PRN (10:54)
[2020-04-16] MEDS ORDERED: HYDROmorphone 0.5 MG/0.5 ML SYRINGE IVP PRN (10:54)
[2020-04-16] MEDS ORDERED: ceFAZolin 1 GM VIAL ONE (11:00)
[2020-04-16] MEDS ORDERED: LACTATED RINGERS 1,000 ML IV SCH (11:00)
[2020-04-16] MEDS ORDERED: LIDOCAINE 1% 50 ML MDV ID ONE ×2 (11:38)
[2020-04-16] MEDS ORDERED: HYDROcod/ACETAM 5/325 MG TABLET PO PRN (12:20)
[2020-04-16 13:16] VITALS: BP 122/80
--- NOTE | 2020-04-16 15:14 | ANESTHESIA POST OP EVALUATION ---
Anesthesia Post Eval - Post Anesthesia Eval Vitals: Last Vital Signs Temp 36.5 C 04/16/20 12:52 Pulse 65 04/16/20 12:52 Resp 15 04/16/20 12:52 BP 122/80 04/16/20 12:52 Pulse Ox 98 04/16/20 12:52 CV Function Including HR & BP: positive: Stable Pain Control: positive: Satisfactory Nausea & Vomiting: positive: Negative Mental Status: positive: Baseline Respiratory Status: Airway Patent Hydration Status: Satisfactory Anesthesia Complications: positive: None
--- NOTE | 2020-04-16 17:19 | XRAY Report ---
Reason: INTRA OPERATIVE PORT A CATH PLACEMENT Procedure Date: 04/16/2020 Accession Number: [id number] / [id number] Procedure: [place] - OR Port-A-Cath CPT Code: Final Report FULL RESULT: PROCEDURE: OR Port-A-Cath INDICATIONS: INTRA OPERATIVE PORT A CATH PLACEMENT TECHNIQUE: Single intraoperative fluoroscopic view of the right chest was acquired COMPARISON: None. FINDINGS: The tip of the Port-A-Cath is partially imaged in the region of the cavoatrial junction. IMPRESSION: Intraoperative fluoroscopy for Port-A-Cath placement. Correlate with intraoperative findings. Reviewed by: Tanya Jacobo MD on 04/16/2020 4:18 PM CARMEN Approved by: Tanya Jacobo MD on 04/16/2020 4:18 PM CARMEN Station ID: [id number]
--- NOTE | 2020-04-16 17:49 | OPERATIVE REPORT ---
DATE OF SERVICE: 04/16/2020 Physician: Sunil Dumont MD 04/16/2020. PREOPERATIVE DIAGNOSIS Metastatic colon cancer. POSTOPERATIVE DIAGNOSIS Metastatic colon cancer, need for chemotherapy and port catheter placement. PROCEDURES PERFORMED 1. Placement of 8-Malay PowerPort left subclavian. 2. Fluoroscopic guidance for PowerPort placement. SURGEON Sunil Dumont MD CONSERVATION WORKER None. ANESTHESIA Monitored anesthesia care, IV sedation, local anesthesia. COMPLICATIONS None. SPECIMENS None. DRAINS None. ESTIMATED BLOOD LOSS 5 mL. FINDINGS Good PowerPort placement with the tip of the catheter at the junction of the atrium and superior vena cava. The mqzt-v-oeaoiqyv flushed and aspirated very easily. INDICATIONS FOR PROCEDURE The patient is a 64-year-old gentleman with a recent diagnosis of metastatic colon cancer. He has significant retroperitoneal adenopathy. He has undergone a colectomy and is doing well from that standpoint. Procedure was discussed in detail. Risks discussed, alternatives discussed, and all questions answered and consent obtained. DESCRIPTION OF PROCEDURE The patient was properly identified, brought to the operating room and placed in the supine position. Monitored anesthesia care was given. The left arm was tucked. He was prepped and draped in a sterile fashion, given preoperative antibiotics. Local anesthetic was given to the surgical area. The left subclavian vein was accessed on the second try. There was no evidence of injury. A guidewire was then placed. There was mild ectopy which resolved when the guidewire was pulled back. A 3.5-4.0 cm incision was made on the left upper chest. A subcutaneous pocket was created for the port. Port catheter tubing was then pulled through a subcutaneous tunnel to the vein access point. Ummg-S-Prytudey tubing was then easily placed through a dilator pull-away sheath. The port catheter tubing was then positioned under fluoroscopy, to the above desired position. The Bque-W-Hzmqthrz tubing was cut to size and the port assembled. The port was then flushed and aspirated with saline. The Zeoa-A-Vnnkqykv was secured to subcutaneous tissue or fascia with interrupted 5-0 Prolene. Buried interrupted subdermal 3-0 Vicryl sutures were then placed. Skin was closed with running buried interrupted 4-0 Monocryl. Steri-Strips were placed. The Mwjk-T-Mgygfthu was then accessed and reaspirated and this time flushed with heparin. Dressings were applied. He tolerated the procedure well. TD: 04/16/2020 14:18 APARNA
== END 2020-04-16 09:43 | disposition home or self-care (01) ==
LOC: SDS 09:42
PROVIDERS: ATTEND Surgery
DX: C18.7 Malignant neoplasm of sigmoid colon (principal); I10 Essential (primary) hypertension; E78.00 Pure hypercholesterolemia, unspecified; E03.9 Hypothyroidism, unspecified; Z79.82 Long term (current) use of aspirin; Z79.899 Other long term (current) drug therapy
CPT/HCPCS: 36561; C1788; J0690; J7120

== ENCOUNTER 2020-05-08 10:10 | Outpatient (CLI) | payer MEDICARE ==
--- NOTE | 2020-05-08 19:09 | CONSULTATION NOTE ---
Palliative Care Consultation - Referral Referring Provider: Dr. Raji Hernandez Time of Visit: 06-23 Ref[place] setting: [facility] [place] Reason: Sigmoid Colon CA Stage 3B/acute right shoulder pain/Goals of Care - Information Sources Records reviewed: Previous records reviewed History/Review of Systems obtained from: Patient, Family ( Shellie accompanies him) Exam limitations: Language barrier (uzbek is second language/Tagalog unable to locate interpretive program; patient and felt could manage without; able to verbalize back information) - History of Present Illness Brief History of Present Illness: This is a 64-year-old Green[place] gentleman, presenting today for his second round of FOLFOX chemotherapy. Patient reports had increasing left lower quadrant pain since November, attributed to past history of kidney stones. He presented to the emergency room on with worsening lower abdominal and suprapubic pain, as well as a report of severe constipation for several weeks, and was found on CT scan, unfortunately to have a mass in his sigmoid colon as well as enlarged retroperitoneal and peritoneal lymph nodes. He did receive an urgent consultation for a colonoscopy, and was found to have a fungating and ulcerated partially obstructing large mass in the sigmoid colon at 25 cm. He went on to have surgery on 04/04, sigmoid hemicolectomy, was found to have invasive adenocarcinoma with 20 3 out of 20 3+ lymph nodes. He had complications of severe postop ileus, but is currently having regular bowel movements a day. He denies any nausea, still has residual intermittent left lower quadrant pain, but needing only hydrocodone about 1 time a day. His incision is well-healed, no signs or symptoms of infection. Patient did have a port placed on 04/16, received his first therapy on 04/24 of FOLFOX. He had some temperature sensitivities in his feet, mild nausea, and some ongoing persistent fatigue. Patient had been having declining functional status, with increased sedentary lifestyle for several weeks prior to original diagnosis, does present with some deconditioning. His most significant health problems have been his retinitis pigmentosa for which he went on disability for in 2014 because of worsening eyesight. He also reports severe issues with hypertension, he had 2 brothers who of heart attacks, so is very anxious regarding his cardiac status. He also presents today with 5 out of 10 right shoulder scapular pain, with limited range of motion. He denies any trauma, but this is his only developed in the last several weeks right about the time of surgery. Patient does present with anorexia, early satiety, denies GERD. On 03/20 he does have a documented weight of 153, today he reports 142. 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 He has needed increased support for ADLs and IADLs, the is trying to encourage more independence and activity. Palliative care meeting with patient and to establish rapport, explore further quality of life issues and exploration of understanding of current situation and disease process. Medical/Surgical History - Past Medical History Cardiovascular: reports: Hypertension, High cholesterol Respiratory: reports: None Neuro: None Endocrine/Autoimmune: reports: HyPOthyroidism (hx lists goiter with I 131 ablation) GI: reports: Other (colon cancer) : reports: Frequency, Kidney stones HEENT: reports: Chronic vision loss (Retinitis pigmentosa), Chronic hearing loss Psych: reports: Anxiety Musculoskeletal: reports: Fatigue Derm: reports: None MRSA Hx?: No - Past Surgical History General: reports: Colonoscopy, Other (sigmoid hemicolectomy) Ortho: reports: Other HEENT: reports: Cataracts - Substance History Use: Uses substance without health or social issues: Tobacco (hx of smoking 1 pack per day; quit 2004), Alcohol (no longer drinks; but hx of high use until 2004) Social History - Living Situation Living arrangement: At home Living Situation: With family Support System: Patient currently living in lower level of his sister's house. There are 5 people upstairs in the upper level of sister's family. They have living with them their 2 children who recently came over from the [facility] this last year, as well as there 2 grandchildren, they report a total of 9 in their space. They are very close family, he is patriarch. They are all very worried him and his recent cancer diagnosis. He had worked when he came over from 2004 the [facility], until he had to go on disability because of his eyesight in 2014. His continues to work, but is currently on FMLA. There are multiple financial and social stressors Family History - Family History Family History: Mother: Alive and Well (2 brothers of MIs), Father: (reports colon ca/records stomach), Cancer (sister with hx breast CA), Sister: Alive and Well, Cancer Family History Comment/Other: Report had uncle and grandfather with colon cancer Medications/Allergies - Medications Home Medications: Ambulatory Orders Medication Instructions Recorded Confirmed Aspirin Chewable [St Polo 81 mg PO DAILY #30 tablet 02/17/19 05/09/20 Aspirin] Atorvastatin Calcium 20 mg PO QPM 03/27/20 05/09/20 Levothyroxine [Synthroid] 200 mcg PO QDAC tablet 03/30/20 05/09/20 Losartan [Cozaar] 50 mg PO DAILY tablet 03/30/20 05/09/20 Hydrocodone/Acetaminophen 1 each PO Q4HR PRN #30 tablet 04/16/20 05/09/20 [Hydrocodone-Acetamin 5-325 mg] Lidocaine/Prilocain 2.5% Cream 30 gm TOP DAILY PRN #1 tube 04/17/20 05/09/20 [Emla 2.5% Cream] OLANZapine [Olanzapine] 5 mg PO UD #24 tablet 04/17/20 05/09/20 Ondansetron HCl [Zofran] 8 mg PO BID PRN #30 tablet 04/17/20 05/09/20 Potassium Chloride [Klor-Con M20] 20 meq PO DAILY 05/09/20 05/09/20 - Allergies Allergies/Adverse Reactions: Allergies Allergy/AdvReac Type Severity Reaction Status Date / Time No Known Drug Allergies Allergy Verified 05/08/20 09:16 Review of Systems - Constitutional Constitutional: reports: Fatigue (very sedentary), Poor appetite. denies: Fever, Chills - Eyes Eyes: reports: Blurred vision, Vision loss - Ears, Nose & Throat Ears, Nose & Throat: reports: Tinnitus, Dry mouth - Cardiovascular Cardiovascular: reports: Exertional dyspnea, Decr. exercise tolerance. denies: Chest pain, Edema - Respiratory Respiratory: reports: SOB with exertion. denies: Cough, SOB at rest - Gastrointestinal Gastrointestinal: reports: Abdominal pain (improved; LLQ), Change in bowel habits (soft stool twice a day), Poor appetite, Early satiety. denies: Nausea, Reflux/heartburn - Genitourinary Genitourinary: reports: Frequency - Musculoskeletal Musculoskeletal: reports: Back pain, Stiffness, Muscle weakness - Integumentary Integumentary: reports: Dryness, Other (healing surgical incision) - Neurological Neurological: reports: General weakness, Numbness (mild in feet with tx; resolved) - Psychiatric Psychiatric: reports: Anxiety - Endocrine Endocrine: reports: Hypothyroidism - Hematologic/Lymphatic Hematologic/Lymphatic: reports: Anemia. denies: Recurrent infections - All Other Systems All Other Systems: reports: Reviewed and negative Physical Exam - Vital Signs Temperature: 36.1 C Pulse Rate: 75 Respiratory Rate: 18 O2 Saturation: 100 Blood Pressure: 131/74 - Physical Exam General Appearance: positive: No acute distress, Alert Eyes Bilateral: positive: Normal inspection, No scleral icterus ENT: positive: No signs of dehydration Neck: positive: Trachea midline Cardiovascular: positive: Regular rate & rhythm Respiratory: positive: No respiratory distress, Diminished in bases. negative: Wheezes, Rales, Rhonchi Abdomen: positive: Non-tender, Soft, Nml bowel sounds. negative: Distended Skin: positive: Dryness, Other (surgical incision well healed) Extremities: positive: No pedal edema, Other (limited ROM right arm/shoulder) Neurologic/Psychiatric: positive: Oriented x3, Mood/affect nml, Flat affect Palliative Care - POLST Patient has POLST: No Pain: Comment (taking hydrocodone about 4/week for abd. pain; right sholder/scapula discomfort without much improvement with opioid; abd pain improving/shoulder/scapulla worsening) Tiredness/Fatigue: Severe (7-10) Drowsiness/Sedation: Mild (1-3) Nausea: None Anorexia: Moderate (4-6) (only eating small amounts; using a less than one shake a day; first few days after tx hard time swallowing used pureed diet; better now), Weight loss Dyspnea: Mild (1-3) Depression: Mild (1-3) Anxiety: Moderate (4-6) Feelings of wellbeing/Perceived Quality of Life: Fair, Acceptable, Improved Sleep: Sleeps well Constipation: No Performance Status: Patient has had a decline in functional status, does assist him. She does report is improving some, she is encouraging to be more independent. He is unable to tolerate ambulating long distances, reports is due mostly to weakness. In trying to tease out before and after, does appear he has had some decline in functional status that has coincided with weight loss and increasing abdominal pain. - Palliative Care Discussion: And trying to tease out patient's understanding of his current illness, he does understand he has cancer. He is quite anxious regarding this, he is always been afraid of dying of actually a heart attack. This is because he does have a long history of hypertension, which has required trips to the hospital particularly in the [facility]. When asked how they were doing with this, they are hoping the cancer treatment is going to work, they are trying to "think happy". It has been somewhat overwhelming, and confusing. They do understand he needs his treatment for the cancer, and are hoping for the best. Did not address advanced care planning, patient's D AURELIO would default to his spouse Shellie. We will follow- up with oncology, regarding expected prognosis to better be able to support them.They do welcome the support of palliative care, given the language barrier, it did take time to elicit and clarify information, but do feel this will be helpful for patient and his to tease out further information and support them and managing side effects of both his disease and his treatment. Results - Lab Results Lab results reviewed: Yes Lab and Imaging Results: Patient with CEA of 2.9, hemoglobin 10.3, hematocrit 31.2, and potassium 3.0 Impression and Recommendations - Palliative Care Impression: This is a 64-year-old [place] gentleman, unfortunately who presents with sigmoid colon cancer stage IIIb, [id number]. Patient is currently receiving FOLFO X, does present with moderate to high symptom burden. Palliative care to provide support for quality of life issues and assist with symptom management regarding side effects of treatment. Recommendations/Counseling Done: 1. Right shoulder/scapula pain. This is been fairly recent onset, does present with limited range of motion. Denies any trauma, is fairly severe at a 5-6 over 10. Patient without any imaging to evaluate, appear to have possible pending CT of the chest. Will follow-up with MAC/oncology. Patient without much relief with hydrocodone/APAP. Instructed could use IcyHot/topical had been afraid regarding infection and surgical incision. Also recommended using heat, and gentle range of motion. Will rule out any concerns related to malignancy, if imaging negative, will refer on to physical therapy. 2. Deconditioning. Encouraged their approach, to continue to encourage him to be more independent. Counseling provided regarding progressive ambulation, with frequent short walks to build up endurance. 3. Hypokalemia. Patient is having a couple loose stools the day, denies diarrhea, pain or cramping with this. Has not needed Imodium or anything to stop it. Suspect may be related to his hemicolectomy. We will go ahead and provide replacement his he is at 3.0, potassium 20 mEq ordered and will follow- up in 2 weeks. 4. Weight loss. Patient has persistent early satiety, denies nausea, has had some swallowing difficulty post first treatment FOLFOX. They did manage with pured food, but is eating small amounts. Has been only using small amounts of warm milk and less than 1 protein drink. Instructed to increase frequency of feedings, increase protein drink to twice a day, and/or add more milk for calories. Patient has lost a total of 20 pounds over this last year. 5. Sigmoid colon cancer, stage IIIb. Patient has limited understanding of his cancer diagnosis, is hopeful for "fixing" his cancer. We will continue to ex plore and work with patient with understanding of both diagnosis and treatment. Today's visit was to evaluate and set up rapport. Will follow-up with oncology, expected course and prognosis for helping with anticipatory guidance. 6. Advanced care planning. This was deferred this visit, D POA would fall to , they do have many nurses in their family. We will continue to make myself available and explore patient's goals and concerns. Time Spent: 60 minutes with greater than 50% of this done in counseling, coordination of care with oncology team, and anticipatory guidance.
== END 2020-05-08 10:11 | disposition home or self-care (01) ==
LOC: PC 10:10
PROVIDERS: ATTEND Nurse Practitioner Adult Health
DX: Z51.5 Encounter for palliative care (principal); M25.511 Pain in right shoulder; R53.1 Weakness; E87.6 Hypokalemia; R63.0 Anorexia; R68.81 Early satiety; R63.4 Abnormal weight loss; R53.83 Other fatigue; I10 Essential (primary) hypertension; R19.4 Change in bowel habit; H35.52 Pigmentary retinal dystrophy; F41.9 Anxiety disorder, unspecified; R10.32 Left lower quadrant pain; C77.9 Secondary and unspecified malignant neoplasm of lymph node, unspecified; C18.7 Malignant neoplasm of sigmoid colon; Z79.82 Long term (current) use of aspirin; Z79.899 Other long term (current) drug therapy; Z79.891 Long term (current) use of opiate analgesic; Z87.891 Personal history of nicotine dependence; Z95.828 Presence of other vascular implants and grafts; Z59.9 Problem related to housing and economic circumstances, unspecified; Z90.49 Acquired absence of other specified parts of digestive tract
CPT/HCPCS: 99205

== ENCOUNTER 2020-05-10 08:18 | Outpatient (CLI) | payer MEDICARE ==
[2020-05-10] MEDS ORDERED: IOVERSOL 320 100 ML VIAL IVP ONE ×2 (08:31→10:47)
[2020-05-10] MEDS ORDERED: IOVERSOL 320 50 ML VIAL ONE (08:31)
[2020-05-10] MEDS ORDERED: SODIUM CHLORIDE FLUSH 0.9% 10 ML SYRINGE ONE (10:20)
[2020-05-10] MEDS ORDERED: IOVERSOL 320 50 ML VIAL PO ONE (10:47)
--- NOTE | 2020-05-10 10:59 | CT Report ---
PROCEDURE: Abdomen/Pelvis W INDICATIONS: MALIGNANT NEOPLASM OF SIGMOID COLON CONTRAST: IV CONTRAST: Optiray 320 ml: 100 PO CONTRAST: Optiray 320 ml50 TECHNIQUE: After the administration of IV and oral contrast, 5 mm thick sections acquired from the diaphragms to the symphysis. 5 mm thick coronal and sagittal reformats were acquired. For radiation dose reducti on, the following was used: automated exposure control, adjustment of mA and/or kV according to arelis ent size. COMPARISON: Same day CT chest. CT abdomen and pelvis 02/15/2020. FINDINGS: Image quality: Excellent. ABDOMEN: Lung bases: Mild streaky opacity at the lung bases. No pleural effusion. Please see separately dictat ed CT chest. Solid organs: Liver and spleen are normal in size and enhancement. No focal lesion. Gallbladder is unremarkable. Biliary system is non dilated. Pancreas enhances normally. No adrenal nodules. Kidn eys demonstrate normal size and enhancement, without hydronephrosis. Small cyst in the inferior pole the right kidney. Peritoneum and bowel: No thickened loops of colon identified. Somewhat prominent stool in the left co michelle. Normal appendix. No small bowel obstruction. Trace free fluid in the paracolic gutter. No pneumo peritoneum. Nodes and vessels: Left common iliac node with a short axis diameter of 0.7 cm, (03/06), previously 1. 4 cm. Intra-aortocaval node with a short axis diameter of 0.9 cm, (/), previously 1.2 cm. There is also decreased enhancement. Aorta and inferior vena cava are normal in size. Miscellaneous: No ventral hernias. Ventral midline scar. PELVIS: Genitourinary: Bladder is unremarkable. Miscellaneous: No inguinal hernias or adenopathy. Bones: No suspicious bony lesions. Bilateral L5 pars defect. No vertebral body compression fracture s. IMPRESSION: 1. Interval decrease in the retroperitoneal adenopathy compared to February 2020. 2. Trace free fluid in the left paracolic gutter. 3. No thickened loops of bowel identified. 4. No focal hepatic lesion. Reviewed by: Kang Brewer MD on 05/10/2020 10:58 AM PDT Approved by: Kang Brewer MD on 05/10/2020 10:58 AM PDT Station ID: [id number]
--- NOTE | 2020-05-10 11:06 | CT Report ---
PROCEDURE: CHEST W INDICATIONS: MALIGNANT NEOPLASM OF SIGMOID COLON CONTRAST: IV CONTRAST: Optiray 320 ml: 100 PO CONTRAST: Optiray 320 ml50 TECHNIQUE: After the administration of intravenous contrast, 5 mm thick sections acquired from the pulmonary api uday to the posterior costophrenic angles. 7 mm thick coronal MIP reformats were acquired. For radia tion dose reduction, the following was used: automated exposure control, adjustment of mA and/or kV according to patient size. COMPARISON: Same day CT abdomen and pelvis, 02/15/2020. FINDINGS: Image quality: Excellent. Lungs and pleura: Mild emphysematous change. Mild streaky opacity at the lung bases most likely atele ctasis or scarring. No pleural effusions or pneumothorax. Central and peripheral airways are patent and normal in caliber. Mediastinum: Heart size is normal. No pericardial effusion. Mildly prominent right paratracheal lym ph node with a short axis diameter of 0.8 cm, (2/15). Thoracic aorta and central pulmonary arteries a re normal in size. No central pulmonary embolism. Esophagus is normal in caliber. No hiatal hernia. Bones and chest wall: Left-sided port with the catheter tip at the lower third of the SVC. No suspic ious bony lesions. No vertebral body compression fractures. No axillary or supraclavicular adenopat hy by size criteria. Thyroid gland appears atrophic. Bilateral gynecomastia. Abdomen: Visualized upper abdominal solid organs appear normal. Possible hepatic steatosis. Upper a bdominal bowel loops are normal in caliber. IMPRESSION: 1. No pulmonary mass or significant pulmonary nodules. 2. Mild emphysematous change. 3. Mild streaky opacity at the lung bases most likely atelectasis or scarring. 4. Mildly prominent right paratracheal lymph node measuring is 0.8 cm short axis. 5. Suspect hepatic steatosis. Gynecomastia. Reviewed by: Kang Brewer MD on 05/10/2020 11:05 AM PDT Approved by: Kang Brewer MD on 05/10/2020 11:05 AM PDT Station ID: [id number]
== END 2020-05-10 08:19 | disposition home or self-care (01) ==
LOC: MAC.MOP 08:18
PROVIDERS: ATTEND Internal Medicine
DX: C18.7 Malignant neoplasm of sigmoid colon (principal)
CPT/HCPCS: 71260; 74177; Q9967

== ENCOUNTER 2020-05-22 10:38 | Outpatient (CLI) | payer MEDICARE ==
--- NOTE | 2020-05-22 17:52 | CONSULTATION NOTE ---
Palliative Care Follow Up - Referral Referring Provider: Bere Julio PA-C Time of Visit: [id number] [place] [facility] [place] Reason: Right shoulder pain/Colon CA/Hypokalemia - Information Sources Records reviewed: RN notes reviewed, Previous records reviewed History/Review of Systems obtained from: Patient, Family ( Shellie present) Exam limitations: No limitations, Other (patient icelandic as second language; able to engage and participate in conversation; with some help) - History of Present Illness Update Brief HPI Update: This is a cezar 64-year-old Jamaican gentleman, presenting for his third round of FOLFOX chemotherapy. Please see HPI for 05/08/2020 for more extensive history. Patient underwent a sigmoid hemicolectomy on 04/04, was found to have an invasive adenocarcinoma with 23 out of 23 nodes positive, including positive margins. He continues to have residual intermittent left lower quadrant groin pain. This is intermittent in nature, on most recent CT scans 05/10, only abnormal finding was trace free fluid in the left paracolic gutter. Patient does not connect pain with bowels, eating, or pressure. We will continue to monitor. Patient reports bowels have been moving, he did have last week some worsening diarrhea, but no greater than 6 stools in 24 hours, and this is since resolved. Patient denies any nausea. Patient remains quite deconditioned, and with poor activity tolerance, but reports some improvement. Patient's most significant complaint continues to be his right shoulder pain, he does have point tenderness, and protruding bone. He had been doing some range of motion and exercises without any improvement. Scans do not show any evidence of suspicious bony lesions, he reports this pain initiated after surgery, was not present prior to this. Will arrange for shoulder x-ray today, pending concern and consult with oncology, rotator cuff tear. Patient's other concern, does appear has symptoms of plantar fasciitis, with increased pain with weightbearing, had this prior to surgery, but has worsened burning sensation with oxaliplatin. On exam no rash, deformity, but tenderness with palpation. Shoes examined, no arches. Patient's past medical history includes retinitis pigmentosa, hypertension, hypothyroidism with history of goiter, kidney stones, chronic hearing loss, anxiety, hyperlipidemia. Social History - Living Situation Living arrangement: At home Living Situation: With spouse/s.o., With family Support System: Patient lives in the lower level of his sister's house. He lives with his , who is currently on FMLA, they are worried about her continue taking time off. He has improved, she is considering returning to work. They do have 2 children, as well as 2 grandchildren living with them. Patient came over from the [facility] in 2004 to work, had to go on disability because of his eyesight in 2014. There are multiple financial and social stressors. Medications/Allergies - Medications Home Medications: Ambulatory Orders Medication Instructions Recorded Confirmed Aspirin Chewable [St Polo 81 mg PO DAILY #30 tablet 02/17/19 05/22/20 Aspirin] Atorvastatin Calcium 20 mg PO QPM 03/27/20 05/22/20 Levothyroxine [Synthroid] 200 mcg PO QDAC tablet 03/30/20 05/22/20 Losartan [Cozaar] 50 mg PO DAILY tablet 03/30/20 05/22/20 Hydrocodone/Acetaminophen 1 each PO Q4HR PRN #30 tablet 04/16/20 05/22/20 [Hydrocodone-Acetamin 5-325 mg] Lidocaine/Prilocain 2.5% Cream 30 gm TOP DAILY PRN #1 tube 04/17/20 05/22/20 [Emla 2.5% Cream] OLANZapine [Olanzapine] 5 mg PO UD #24 tablet 04/17/20 05/22/20 Ondansetron HCl [Zofran] 8 mg PO BID PRN #30 tablet 04/17/20 05/22/20 Potassium Chloride [Klor-Con M20] 20 meq PO BID 05/09/20 05/22/20 - Allergies Allergies/Adverse Reactions: Allergies Allergy/AdvReac Type Severity Reaction Status Date / Time No Known Drug Allergies Allergy Verified 05/08/20 09:16 Review of Systems - Constitutional Constitutional: reports: Fatigue (improving), Weakness, Poor appetite, Weight loss. denies: Fever, Chills - Eyes Eyes: reports: Blurred vision, Vision loss (due for check up) - Ears, Nose & Throat Ears, Nose & Throat: reports: Hearing loss. denies: Mouth lesions - Cardiovascular Cardiovascular: reports: Decr. exercise tolerance. denies: Chest pain, Edema - Respiratory Respiratory: denies: Cough, SOB at rest - Gastrointestinal Gastrointestinal: reports: Diarrhea (a few episodes but not persistent), Poor appetite. denies: Nausea - Musculoskeletal Musculoskeletal: reports: Stiffness, Limited range of motion, Muscle weakness, Joint pain (right shoulder pain has not improved), Assistive devices (using rolling walker at home), Other (c/o feet burning; increase pain with weight bearing; prior to chemo but now worsening sensation with chemo) - Integumentary Integumentary: reports: Dryness - Neurological Neurological: reports: General weakness, Numbness - Psychiatric Psychiatric: denies: Depression, Anxiety - Endocrine Endocrine: reports: Hypothyroidism - Hematologic/Lymphatic Hematologic/Lymphatic: reports: Anemia. denies: Recurrent infections - All Other Systems All Other Systems: reports: Reviewed and negative Physical Exam - Vital Signs Temperature: 36.6 C Pulse Rate: 58 Respiratory Rate: 18 Blood Pressure: 131/84 - Physical Exam General Appearance: positive: No acute distress, Alert Eyes Bilateral: positive: Normal inspection, No scleral icterus ENT: positive: No signs of dehydration Neck: positive: Trachea midline Cardiovascular: positive: Regular rate & rhythm Respiratory: positive: No respiratory distress, Diminished in bases Abdomen: positive: Soft, Nml bowel sounds, Tenderness (LLQ) Skin: positive: Dryness Extremities: positive: No pedal edema, Other (pain on palpation to foot) Neurologic/Psychiatric: positive: Oriented x3, Mood/affect nml, Flat affect Palliative Care - POLST Patient has POLST: No Pain: Pain unchanged (right shoulder), Pain worsening (bilateral feet), Pain improved (in abdomen), Comment (taking hydrocodone 5 mg/325 mg about 2x a week mostly for shoulder pain/occasional LLQ) Tiredness/Fatigue: Moderate (4-6) Drowsiness/Sedation: Mild (1-3) Nausea: None Anorexia: Severe (7-10) Dyspnea: None Depression: None Anxiety: None Feelings of wellbeing/Perceived Quality of Life: Good, Acceptable, Improved Sleep: Sleeps well Constipation: No Performance Status: Patient reports his activity tolerance has improved some, his son to get him a rolling walker. He does go out and ambulate short distances. He has been trying to do right shoulder exercises, but with significant pain. He used to go fishing, and accompany his and son, has not been able to since surgery. Unfortunately he is quite sedentary, has been watching TV, has been encouraging him to be more active.He is independent in his ADLs now, and feeling more confident but has increased pain in feet with walking. - Palliative Care Discussion: Patient and are settling in now, focusing on treatment and "getting better". We did review how they are doing, overall still have some anxiousness. He is worried about his limitation in his shoulder, and reassured we will follow-up on that today. he is on FMLA, considering going back to work as patient improves, do have any financial concerns. Results - Lab Results Lab results reviewed: Yes Lab and Imaging Results: Potassium 3.2 on 20 MEQ K daily Impression and Recommendations - Palliative Care Impression: This is a 64-year-old Jamaican gentleman, unfortunately presents with sigmoid colon cancer stage IIIb, has completed his abdominal and CT staging scans. Patient is currently receiving third round of FOLFOX, has improved symptom burden, but continues with persistent right shoulder pain. Palliative care to provide support for quality of life issues, assist with symptom management, and continue to follow for anticipatory guidance. Recommendations/Counseling Done: 1. Right shoulder/scapula pain. This is recent onset, identifies after time of surgery. Patient does present with limited range of motion, without any improvement over this last 2 weeks. Patient denies any trauma, is fairly severe and worsening with a 7/10. Patient's imaging a pending CT of the chest, does not show any bony lesions. Patient instructed to use topical icy hot or salon pause. Have arranged for 3 view shoulder x-ray, consult with oncology, may need referral to Ortho for suspected shoulder cuff injury. 2. Plantar fasciitis. Patient presents with signs and symptoms of plantar fasciitis, worsening burning sensation with oxalipatin, does interfere with his walking. has had similar, so she does understand interventions. Instructed to get support inserts for shoes, and massage/rub a tennis ball or hand for comfort. 3. Hypokalemia. Patient did have 1 round of diarrhea, reports otherwise is stooling more regularly. Denies diarrhea consistently, has not used Imodium. Patient had been started on potassium 20 mEq, will increase to twice daily. New prescription sent to [facility]. Patient and verbalized understanding and written instructions given. 4. Weight loss. Patient reports some improvement in appetite, continues with early satiety, denies nausea has not had any further swallowing difficulties. He did not weigh today, but does feel like he is gained some weight. Is working hard on increasing calories. Counseling to reemphasize and follow-up on need to increase calories and regain at least 5 to 10 pounds. 5. Stage IIIb sigmoid colon cancer. Patient continues with limited understanding of his cancer diagnosis, he is relaxing into though asking more questions, he did have restaging scans done, they have not been reviewed yet with oncology. We will continue to partner with oncology for anticipatory guidance, will follow-up with oncology expected course and prognosis. 6. Advanced care planning. Patient provided handicap paperwork for department of licensing, instructions given how to follow through on this. Patient does have limited endurance, and will benefit. 7. Generalized weakness. Encouraged patient to continue to work on progressive ambulation, increasing time and distance. Patient may benefit from physical therapy after plantar fasciitis improved as well's question regarding shoulder pain addressed. Time Spent: 45 minutes with greater than 50% of this done in counseling regarding symptom management, coordination of care and arrangement for shoulder x-ray, and follow- up with oncology team.
== END 2020-05-22 10:39 | disposition home or self-care (01) ==
LOC: PC 10:38
PROVIDERS: ATTEND Nurse Practitioner Adult Health
DX: Z51.5 Encounter for palliative care (principal); C18.7 Malignant neoplasm of sigmoid colon; M25.511 Pain in right shoulder; M72.2 Plantar fascial fibromatosis; E87.6 Hypokalemia; R53.1 Weakness; R68.81 Early satiety; Z79.899 Other long term (current) drug therapy
CPT/HCPCS: 99215

== ENCOUNTER 2020-05-22 14:47 | Outpatient (CLI) | payer MEDICARE ==
--- NOTE | 2020-05-22 16:17 | XRAY Report ---
PROCEDURE: Shoulder 3 View RT INDICATIONS: RT SHOULDER PAIN TECHNIQUE: 3 views of the shoulder were acquired. COMPARISON: None. FINDINGS: Bones: No fractures or dislocations. No suspicious bony lesions. Visualized ribs appear intact. M oderate acromioclavicular degenerative narrowing. Humeral head is high riding. Soft tissues: No suspicious soft tissue calcifications. IMPRESSION: 1. Moderate acromioclavicular degenerative narrowing. 2. High riding appearance of the humeral head which can be seen with rotator cuff pathology. Reviewed by: Shameka Millan MD on 05/22/2020 4:16 PM PDT Approved by: Shameka Millan MD on 05/22/2020 4:16 PM PDT Station ID: [id number]
== END 2020-05-22 14:48 | disposition home or self-care (01) ==
LOC: DI 14:47
PROVIDERS: ATTEND Nurse Practitioner Adult Health
DX: M19.011 Primary osteoarthritis, right shoulder (principal); R93.6 Abnormal findings on diagnostic imaging of limbs

== ENCOUNTER 2020-06-19 11:11 | Outpatient (CLI) | payer MEDICARE ==
--- NOTE | 2020-06-19 20:05 | CONSULTATION NOTE ---
Palliative Care Follow Up - Referral Referring Provider: Dr. Raji Hernandez Time of Visit: [phone] [place] [facility] [place] Reason: Right shoulder pain/colon ca/hypokalemia - Information Sources Records reviewed: Previous records reviewed History/Review of Systems obtained from: Patient, Family ( Shellie present) Exam limitations: No limitations - History of Present Illness Update Brief HPI Update: This is a cezra 64-year-old Greek gentleman, presenting for his fifth round of FOLFOX chemotherapy, is starting to experience some persistent fatigue, and mild nausea sustained for 3 to 4 days after treatment. He reports some intermittent residual discomfort right lower abdomen, but is not persistent. He cannot connect it with bowel movements, or timing of chemotherapy. He is doing better with eating and drinking, he has been taking small walks daily, he still naps in the afternoon but is up more. He appears bright and engaged, but his main complaint continues to be his right shoulder discomfort. This is persistent, using intermittent ibuprofen, awakens him at night related to pain, and presents with limited range of motion and has not heard on imaging nor on orthopedic referral. He reports regular bowel movements, is a plantar fasciitis have since resolved, He does present with persistent hypokalemia even with initiation of potassium 20 MEQ twice daily, confirmed taking daily. Past Medical History: Invasive adenocarcinoma: Stage IIIb, nodes positive with positive margins, retinitis pigmentosa, hypertension, hypothyroidism with history of goiter, kidney stones, chronic hearing loss, anxiety, hyperlipidemia Social History - Living Situation Living arrangement: At home Living Situation: With spouse/s.o., With family Support System: Patient lives in the lower level of his sister's house, with his who is currently on FMLA, may be returning to work. There are multiple financial and social stressors, patient is on disability for his retinitis pigmentosa. They do express concerns regarding medical bills, though have not had the final amount billed. Did discuss in the context of this there is assistance to patient financial systems manager, will reach out for review of case. Medications/Allergies - Medications Home Medications: Ambulatory Orders Medication Instructions Recorded Confirmed Aspirin Chewable [St Polo 81 mg PO DAILY #30 tablet 02/17/19 06/05/20 Aspirin] Atorvastatin Calcium 20 mg PO QPM 03/27/20 06/05/20 Levothyroxine [Synthroid] 200 mcg PO QDAC tablet 03/30/20 06/05/20 Losartan [Cozaar] 50 mg PO DAILY tablet 03/30/20 06/05/20 Hydrocodone/Acetaminophen 1 each PO Q4HR PRN #30 tablet 04/16/20 06/05/20 [Hydrocodone-Acetamin 5-325 mg] Lidocaine/Prilocain 2.5% Cream 30 gm TOP DAILY PRN #1 tube 04/17/20 06/05/20 [Emla 2.5% Cream] OLANZapine [Olanzapine] 5 mg PO UD #24 tablet 04/17/20 06/05/20 Ondansetron HCl [Zofran] 8 mg PO BID PRN #30 tablet 04/17/20 06/05/20 Potassium Chloride [Klor-Con M20] 20 meq PO BID 05/09/20 06/05/20 - Allergies Allergies/Adverse Reactions: Allergies Allergy/AdvReac Type Severity Reaction Status Date / Time No Known Drug Allergies Allergy Verified 05/08/20 09:16 Review of Systems - Constitutional Constitutional: reports: Fatigue (worsening with each cycle), Weight stable - Eyes Eyes: reports: Blurred vision, Vision loss - Ears, Nose & Throat Ears, Nose & Throat: reports: Hearing loss (mild), Other (voice quiet) - Cardiovascular Cardiovascular: reports: Decr. exercise tolerance (improving). denies: Chest pain, Edema - Respiratory Respiratory: denies: SOB at rest - Gastrointestinal Gastrointestinal: reports: Nausea (few days after chemo), Good appetite (improved; using supplement drinks). denies: Abdominal pain (intermittent and fleeting), Constipation, Diarrhea, Vomiting - Musculoskeletal Musculoskeletal: reports: Stiffness, Limited range of motion (right shoulder), Joint pain (right shoulder persistent) - Integumentary Integumentary: reports: Dryness, Other (healed surgical incision) - Neurological Neurological: reports: General weakness (improved). denies: Memory problems - Psychiatric Psychiatric: reports: Anxiety. denies: Depression - Endocrine Endocrine: reports: Hypothyroidism - Hematologic/Lymphatic Hematologic/Lymphatic: reports: Anemia - All Other Systems All Other Systems: reports: Reviewed and negative Physical Exam - Vital Signs Temperature: 36.7 C Pulse Rate: 55 Respiratory Rate: 18 Blood Pressure: 124/73 - Physical Exam General Appearance: positive: No acute distress, Alert Eyes Bilateral: positive: Normal inspection ENT: positive: No signs of dehydration Neck: positive: Trachea midline Cardiovascular: positive: Regular rate & rhythm Respiratory: positive: No respiratory distress Abdomen: positive: Non-tender, Soft, Nml bowel sounds Skin: positive: Dryness Extremities: positive: No pedal edema. negative: Full ROM (lilmited ROM; pain) Neurologic/Psychiatric: positive: Oriented x3, Mood/affect nml, Flat affect Palliative Care - POLST Patient has POLST: No POLST Status: Full Code Pain: Pain unchanged (right shoulder), Pain improved (abdominal discomfort) Tiredness/Fatigue: Moderate (4-6) (worsening) Drowsiness/Sedation: None Nausea: Moderate (4-6) (with few days of chemo) Anorexia: Mild (1-3) Dyspnea: None Depression: None Anxiety: Mild (1-3) Feelings of wellbeing/Perceived Quality of Life: Good, Acceptable, Improved Sleep: Variable sleep pattern (due to right shoulder pain) Constipation: No Performance Status: Patient is needing less help, is able to bathe independently. Is trying to walk daily, walks in front of the house. Reports is more fatigued, but is doing more overall. - Palliative Care Discussion: Patient is settling into treatment schedule, is finding more fatigue and some increased nausea with chemo only. He is doing better with his appetite, intake, and trying to improve his activity level. Continue with multiple stressors, remains quite concerned about his right shoulder pain and discomfort, has not had any contact regarding follow-up for testing. remains on FMLA, but is considering returning back, trying to weigh the demands regarding their financial situation. Results - Lab Results Lab results reviewed: Yes Impression and Recommendations - Palliative Care Impression: This is a 64-year-old Greek gentleman, who has stage III sigmoid colon cancer, is currently receiving his fifth round of FOLFOX, but continues with persistent right shoulder pain. Patient is having some more residual effects from therapy including fatigue and nausea, weight though has remained stable. Palliative care to continue provide support her quality of life issues, assist with symptom management and navigating his treatment and healthcare system. Continue to follow for anticipatory guidance. Recommendations/Counseling Done: 1. Shoulder/scapula pain. Patient was to have MRI of right shoulder, has not had this scheduled yet, no heard from Ortho. Suspect shoulder cuff injury, does appear to have happened around time of surgery. Follow-up with referral department, will assist in getting scheduled and confirmed as well as Ortho referral facilitated. Patient is using intermittent ibuprofen, as well as topicals. 2. Plantar fasciitis. This is since resolved, patient is ambulating better. 3. Hypokalemia. Patient is denying constipation or diarrhea, has been taking potassium 20 mEq twice daily, instructed to continue current dosing. 4. Weight loss. Patient is having improvement in appetite, continues with some early satiety. Reports nausea only persistent during chemotherapy, has not lost any further weight. Counseling to reemphasize continue to increase calories as able. 5. Stage IIIb sigmoid colon cancer. Patient continues have limited understanding of his cancer diagnosis, though is asking more questions, continue to partner with oncology for anticipatory guidance, and follow for treatment course. 6. Generalized weakness. Patient has been working on progressive ambulation, is having some more persistent fatigue related to his treatment. Will await outcome of Ortho appointment, patient may benefit from physical therapy. 7. Advanced care planning. Continue to build rapport with patient and , will reach out regarding patient financial systems manager if needed, and await outcome of evaluation of shoulder pain. Time Spent: 45 minutes with getting 50% of this done in counseling and coordination of care with oncology team/referral process. Patient provided anticipatory guidance and psychosocial support.
== END 2020-06-19 11:12 | disposition home or self-care (01) ==
LOC: PC 11:11
PROVIDERS: ATTEND Nurse Practitioner Adult Health
DX: Z51.5 Encounter for palliative care (principal); M25.511 Pain in right shoulder; E87.6 Hypokalemia; R53.1 Weakness; R63.4 Abnormal weight loss; R53.83 Other fatigue; R11.0 Nausea; T45.1X5A Adverse effect of antineoplastic and immunosuppressive drugs, initial encounter; M72.2 Plantar fascial fibromatosis; C18.9 Malignant neoplasm of colon, unspecified; Z59.9 Problem related to housing and economic circumstances, unspecified; Z79.899 Other long term (current) drug therapy
CPT/HCPCS: 99215

== ENCOUNTER 2020-06-21 14:37 | Outpatient (CLI) | payer MEDICARE | END 2020-06-21 14:38 | disposition home or self-care (01) | LOC: DI 14:37 | PROVIDERS: ATTEND Internal Medicine | DX: Z53.9 Procedure and treatment not carried out, unspecified reason (principal) ==

== ENCOUNTER 2020-07-31 09:46 | Outpatient (CLI) | payer MEDICARE ==
--- NOTE | 2020-07-31 20:13 | CONSULTATION NOTE ---
Palliative Care Follow Up - Referral Referring Provider: Dr. Raji Hernandez Time of Visit: [phone] [place] [facility] [place] Reason: Anxiety/Colon CA/Right shoulder pain - Information Sources Records reviewed: RN notes reviewed, Previous records reviewed History/Review of Systems obtained from: Patient, Family ( Shellie present) Exam limitations: No limitations - History of Present Illness Update Brief HPI Update: This is a cezar 64-year-old gentleman, presenting for his eighth cycle of FOLFOX chemotherapy, he is starting to have more cumulative side effects, of fatigue, mild peripheral neuropathy, and mild pancytopenia necessitating a dose reduction. He continues with intermittent residual right lower abdominal discomfort, intermittent diarrhea, and only mild nausea attributed to his chemotherapy. He is getting stronger, gaining weight, but presents today with ongoing escalating anxiety. He is here with his Shellie, both are expressing anxiety and concern over ongoing issues regarding pandemic. Patient with high anxiety, with new regulations have no visitors in, this made him quite panicky, but staff were able to get an exception given his underlying anxiety disorder and he is feeling better. Patient persists with his right shoulder pain, and limited range of motion. He is awaiting orthopedic appointment, was unable to tolerate MRI because of anxiety. He is not interested in rescheduling at this point in time. He is using topical on it at night, but continues to be his greatest source of discomfort, though the pain level has decreased to 4 out of 10. Encouraged to continue to use, and work within range of motion. Past Medical History: Stage IIIb invasive adenocarcinoma, nodes positive with positive margins, retinitis pigmentosa, hypertension, hypothyroidism with history of goiter, kidney stones, chronic hearing loss, anxiety,. Hyperlipidemia Social History - Living Situation Living arrangement: At home Living Situation: With spouse/s.o., With family Support System: Patient lives in the lower level of his sister's home, his is still currently on FMLA, but will need to return to work in August. He is somewhat anxious about this for he is quite dependent on her. There are multiple financial and social stressors, patient is on disability for his retinitis pigmentosa. Medications/Allergies - Medications Home Medications: Ambulatory Orders Medication Instructions Recorded Confirmed Aspirin Chewable [St Polo 81 mg PO DAILY #30 tablet 02/17/19 07/17/20 Aspirin] Atorvastatin Calcium 20 mg PO QPM 03/27/20 07/17/20 Levothyroxine [Synthroid] 200 mcg PO QDAC tablet 03/30/20 07/17/20 Losartan [Cozaar] 50 mg PO DAILY tablet 03/30/20 07/17/20 Hydrocodone/Acetaminophen 1 each PO Q4HR PRN #30 tablet 04/16/20 07/17/20 [Hydrocodone-Acetamin 5-325 mg] Lidocaine/Prilocain 2.5% Cream 30 gm TOP DAILY PRN #1 tube 04/17/20 07/17/20 [Emla 2.5% Cream] OLANZapine [Olanzapine] 5 mg PO UD #24 tablet 04/17/20 07/17/20 ondansetron HCL [Zofran] 8 mg PO BID PRN #30 tablet 04/17/20 07/17/20 Potassium Chloride [Klor-Con M20] 20 meq PO BID 05/09/20 07/17/20 Loperamide HCl [Imodium A-D] 2 mg PO Q6HR PRN 07/31/20 07/31/20 - Allergies Allergies/Adverse Reactions: Allergies Allergy/AdvReac Type Severity Reaction Status Date / Time No Known Drug Allergies Allergy Verified 07/17/20 11:15 Review of Systems - Constitutional Constitutional: reports: Fatigue (improving), Weight gain (154). denies: Fever, Chills - Eyes Eyes: reports: Blurred vision, Vision loss - Ears, Nose & Throat Ears, Nose & Throat: reports: Hearing loss. denies: Mouth lesions - Cardiovascular Cardiovascular: reports: Exertional dyspnea, Decr. exercise tolerance. denies: Chest pain - Respiratory Respiratory: denies: SOB at rest - Gastrointestinal Gastrointestinal: reports: Diarrhea (this am; thinks may be related to anxiety), Nausea (mild nausea with start of chemo ?decadron), Good appetite (improved) - Musculoskeletal Musculoskeletal: reports: Limited range of motion (right shoulder), Assistive devices (has walker for outside for balance; ambulatory and stronger in home) - Integumentary Integumentary: reports: Dryness - Neurological Neurological: reports: Numbness (noted in feet; fluctuates) - Psychiatric Psychiatric: reports: Anxiety (Patient is always been anxious, does get easily overwhelmed by the medical system and worries about his health care status. Currently is distressed with the limitations and concerns for COVID-19 and his risks.) - Endocrine Endocrine: reports: Hypothyroidism - Hematologic/Lymphatic Hematologic/Lymph: Anemia - All Other Systems All Other Systems: reports: Reviewed and negative Physical Exam - Vital Signs Pulse Rate: 56 Respiratory Rate: 18 Blood Pressure: 132/75 - Physical Exam General Appearance: positive: No acute distress, Alert, Anxious Eyes Bilateral: positive: Normal inspection, No scleral icterus ENT: positive: No signs of dehydration Neck: positive: Trachea midline Respiratory: positive: No respiratory distress Abdomen: positive: Non-tender, Soft Skin: positive: Dryness Extremities: positive: No pedal edema Neurologic/Psychiatric: positive: Oriented x3, Flat affect Palliative Care - POLST Patient has POLST: No Pain: Pain unchanged, Location (right shoulder), Severity (4/10), Comment (Uses topical, particularly at nighttime. Occasionally uses a hydrocodone 5 mg/acetaminophen 325 mg. This is though less than 3 or 4 times a month.) Tiredness/Fatigue: Mild (1-3) Drowsiness/Sedation: None Nausea: None Anorexia: None Dyspnea: None Depression: None Anxiety: Moderate (4-6) Feelings of wellbeing/Perceived Quality of Life: Good, Acceptable, Improved Sleep: Sleeps well, Sleep improved Constipation: No Performance Status: Patient is not doing any heavy lifting, but does feel quite a bit stronger. He is managing his own ADLs, and starting to help with household tasks. When it was nicer he was outside walking with his walker, patient at baseline used to bike fishing and was quite active. He is hoping to return to previous level of functioning. We did discuss considering physical therapy after completes treatment. - Palliative Care Discussion: Patient tends to be quite passive in his medical care, does tentatively ask me multiple questions. Have tried to take his lead, as far as helping him understand his current situation as well as his curiosities. He is quite anxious regarding the pandemic, did review though he is at risk, that not as many people were dying, and he was taking appropriate precautions. Both he and his feel somewhat overwhelmed by the limitations and homebound status. Patient easily gets triggered and anxious, this is true even before his cancer, does admit to high anxiety. Continue to provide support and build rapport and helping him explore some of his fears and concerns Results - Lab Results Lab results reviewed: Yes Impression and Recommendations - Palliative Care Impression: This is a 64-year-old [place] gentleman who has stage III sigmoid colon cancer, is currently receiving his eighth round of FOLFOX, has had some persistent fatigue, mild peripheral neuropathy, and noted intermittent pancytopenia. Patient is doing better, gaining strength, eating better gaining weight, but continues with persistent anxiety. Palliative care to continue provide support for quality of life issues, assist with symptom management and navigating his treatment and healthcare system. Continue to follow for anticipatory guidance. Recommendations/Counseling Done: 1. Right shoulder/scapula pain. Most likely attributed to rotator cuff tear. Unfortunate was unable to tolerate MRI, awaiting orthopedic appointment. Has been encouraged to do gentle range of motion, do not push past point of discomfort. Patient is using topicals, and occasional Vicodin. 2. Hypokalemia. Patient does have intermittent loose stools, is continue to take potassium 20 mEq twice daily, continues to run on the low end of normal. Instructed to continue current dosing. 3. Weight loss patient has been having improvement in appetite, does have some early satiety still. Has gained some weight, is doing much better with calorie intake and feeling stronger overall. Does feel like he is gaining ground on this. 4. Stage IIIb sigmoid colon cancer. Patient with high risk disease, will be receiving follow-up scans next week, will continue to partner with oncology for anticipatory guidance and follow for treatment course. 5. Generalized weakness. Patient has been adhering to progressive ambulation, still has some persistent fatigue but is more active and being able to participate in household tasks. Patient would benefit from physical therapy, would recommend on completion of treatment. 6. Anxiety. Patient does have persistent anxiety, he has most likely general anxiety disorder at baseline. Counseling and support provided given both patient and feeling somewhat overwhelmed by the pandemic, pandemic fatigue, and decreased contact and support with family as an outcome of the restrictions. Time Spent: 45 minutes with 50% of this spent in counseling coordination of care, addressing patient's underlying anxiety, and anticipatory guidance.
== END 2020-07-31 09:47 | disposition home or self-care (01) ==
LOC: PC 09:46
PROVIDERS: ATTEND Nurse Practitioner Adult Health
DX: Z51.5 Encounter for palliative care (principal); M25.511 Pain in right shoulder; E87.6 Hypokalemia; C18.7 Malignant neoplasm of sigmoid colon; R53.1 Weakness; F41.9 Anxiety disorder, unspecified; I10 Essential (primary) hypertension; H35.52 Pigmentary retinal dystrophy; Z79.899 Other long term (current) drug therapy
CPT/HCPCS: 99215

== ENCOUNTER 2020-08-05 11:35 | Outpatient (CLI) | payer MEDICARE ==
[2020-08-05] MEDS ORDERED: IOVERSOL 320 50 ML VIAL PO ONE (14:12)
[2020-08-05] MEDS ORDERED: IOVERSOL 320 100 ML VIAL IVP ONE (14:13)
--- NOTE | 2020-08-05 15:16 | CT Report ---
PROCEDURE: Abdomen/Pelvis W INDICATIONS: COLON CA CONTRAST: IV CONTRAST: Optiray 320 ml: 10 PO CONTRAST: Optiray 320 ml50 TECHNIQUE: After the administration of nonionic contrast, 5 mm thick sections acquired from the diaphragms to th e symphysis. 5 mm thick coronal and sagittal reformats were acquired. For radiation dose reduction, the following was used: automated exposure control, adjustment of mA and/or kV according to patient size. COMPARISON: Prior CT chest 08/05/2020 and 05/10/2020. Prior abdomen/pelvis CT 05/10/2020 also reviewed .. FINDINGS: Image quality: Excellent. ABDOMEN: Lung bases: Lung bases are clear. Heart size is normal. Solid organs: Liver and spleen are normal in size and enhancement. Gallbladder is contracted. Bili belinda system is non dilated. Pancreas enhances normally. No adrenal nodules. Kidneys demonstrate nor mal size and enhancement, without hydronephrosis. Peritoneum and bowel: Bowel loops demonstrate normal wall thickness and caliber. No free fluid or a ir. Nodes and vessels: No retroperitoneal or mesenteric adenopathy by size criteria. Aorta and inferior vena cava are normal in size. Miscellaneous: No ventral hernias. PELVIS: Genitourinary: Bladder wall thickness is normal. Miscellaneous: No inguinal hernias or adenopathy. Bones: No suspicious bony lesions. No vertebral body compression fractures. IMPRESSION: Resolution of retroperitoneal adenopathy previously present, no development of solid or hollow organ metastatic disease. Overall, currently there is no sign of underlying malignancy. Reviewed by: Frank Rowley MD on 08/05/2020 3:14 PM PST Approved by: Frank Rowley MD on 08/05/2020 3:14 PM PST Station ID: [id number]
--- NOTE | 2020-08-05 15:20 | CT Report ---
PROCEDURE: CHEST W INDICATIONS: COLON CA CONTRAST: IV CONTRAST: Optiray 320 ml: 100 PO CONTRAST: Optiray 320 ml50 TECHNIQUE: After the administration of intravenous contrast, 5 mm thick sections acquired from the pulmonary api uday to the posterior costophrenic angles. 7 mm thick coronal MIP reformats were acquired. For radia tion dose reduction, the following was used: automated exposure control, adjustment of mA and/or kV according to patient size. COMPARISON: Prior chest CT 05/10/2020 FINDINGS: Image quality: Excellent. Lungs and pleura: No acute air space opacities. No pleural effusions or pneumothorax. Central and peripheral airways are patent and normal in caliber. Mediastinum: Heart size is normal. No pericardial effusion. No mediastinal or hilar adenopathy by size criteria. Thoracic aorta and central pulmonary arteries are normal in size. Esophagus is evaristo l in caliber. No hiatal hernia. Smith catheter from left-sided approach extends in normal position into the superior vena cava. Bones and chest wall: No suspicious bony lesions. No vertebral body compression fractures. No axil dalton or supraclavicular adenopathy by size criteria. Thyroid gland appears normal where well seen. Abdomen: Visualized upper abdominal solid organs appear normal. Upper abdominal bowel loops are nor mal in caliber. IMPRESSION: No evidence of metastatic disease. Port-A-Cath in normal position from left-sided approach. Reviewed by: Frank Rowley MD on 08/05/2020 3:18 PM PST Approved by: Frank Rowley MD on 08/05/2020 3:18 PM PST Station ID: [id number]
== END 2020-08-05 11:36 | disposition home or self-care (01) ==
LOC: DI 11:35
PROVIDERS: ATTEND Internal Medicine
DX: C18.7 Malignant neoplasm of sigmoid colon (principal); C77.2 Secondary and unspecified malignant neoplasm of intra-abdominal lymph nodes; Z95.828 Presence of other vascular implants and grafts
CPT/HCPCS: 71260; 74177; Q9967

== ENCOUNTER 2020-09-10 15:36 | Outpatient (CLI) | payer MEDICARE ==
--- NOTE | 2020-09-10 18:50 | CONSULTATION NOTE ---
Palliative Care Follow Up - Referral Referring Provider: Dr. Raji Hernandez Time of Visit: [phone] Referral setting: [facility] – [place] Referral Reason: Anxiety/Colon CA - Information Sources Records reviewed: Previous records reviewed History/Review of Systems obtained from: Patient Exam limitations: Clinical condition (anxiety/health literacy) - History of Present Illness Update Brief HPI Update: This is a cezar 60-year-old gentleman presenting for his 11th cycle of FOLFOX chemotherapy, he is having some cumulative effects of fatigue, complains of numbness on the bottom of his feet, And burning sensation when laying in bed at night. He also complains of some mild peripheral neuropathy changes in his fingers. He reports this is changed from baseline, but not significantly from last treatment. He is due for his last treatment next round, and is very much looking forward to finishing up. He has had worsening blurriness in his left eye, he is due to have cataract surgery after chemotherapy completed. He denies any diarrhea, has had some weight gain, reports his appetite is improved no oral lesions or skin changes. He continues with baseline anxiety, seems somewhat surprised that he would be continue to be followed for his cancer. Patient did receive a cortisone shot in his right shoulder, with now some impr ovement. He reports he is using a heating pad regularly at night, and some range of motion exercises. He does see the orthopedist again on 09/23 and would be interested in physical therapy for further improvement in function and pain. Past Medical History: Stage IIIb invasive adenocarcinoma the colon, nodes positive with positive margins, retinitis pigmentosa, hypertension, hypothyroidism with history of goiter, kidney stones, chronic hearing loss, anxiety, hyperlipidemia Social History - Living Situation Living arrangement: At home Living Situation: With spouse/s.o. Support System: His daughter from [place] is currently visiting, he is very much enjoyed the holidays. His is returned to work, he is dependent for transportation. He gets quite anxious, but feels like he is doing okay with his current infusion. There are multiple financial and social stressors. Patient is on disability for his retina pigmentosa Medications/Allergies - Medications Home Medications: Ambulatory Orders Medication Instructions Recorded Confirmed Aspirin Chewable [St Polo 81 mg PO DAILY #30 tablet 02/17/19 09/10/20 Aspirin] Atorvastatin Calcium 20 mg PO QPM 03/27/20 09/10/20 Levothyroxine [Synthroid] 200 mcg PO QDAC tablet 03/30/20 09/10/20 Losartan [Cozaar] 50 mg PO DAILY tablet 03/30/20 09/10/20 Lidocaine/Prilocain 2.5% Cream 30 gm TOP DAILY PRN #1 tube 04/17/20 09/10/20 [Emla 2.5% Cream] OLANZapine [Olanzapine] 5 mg PO UD #24 tablet 04/17/20 09/10/20 ondansetron HCL [Zofran] 8 mg PO BID PRN #30 tablet 04/17/20 09/10/20 Potassium Chloride [Klor-Con M20] 20 meq PO TID 05/09/20 09/10/20 Loperamide HCl [Imodium A-D] 2 mg PO Q6HR PRN 07/31/20 09/10/20 - Allergies Allergies/Adverse Reactions: Allergies Allergy/AdvReac Type Severity Reaction Status Date / Time No Known Drug Allergies Allergy Verified 08/14/20 09:42 Review of Systems - Constitutional Constitutional: reports: Fatigue, Weight stable. denies: Fever, Chills - Eyes Eyes: reports: Blurred vision (left eye; planning on cataract surgery after chemo), Vision loss - Ears, Nose & Throat Ears, Nose & Throat: denies: Mouth lesions - Cardiovascular Cardiovascular: reports: Decr. exercise tolerance. denies: Edema - Respiratory Respiratory: denies: SOB at rest - Gastrointestinal Gastrointestinal: reports: Good appetite. denies: Constipation, Diarrhea, Reflux/heartburn - Musculoskeletal Musculoskeletal: reports: Stiffness, Joint pain (right shoulder better; received cortisol shot with mild improvement) - Integumentary Integumentary: reports: Dryness - Neurological Neurological: reports: Numbness (bottom of feet/burning sensation at night) - Psychiatric Psychiatric: reports: Anxiety - All Other Systems All Other Systems: reports: Reviewed and negative Physical Exam - Vital Signs Pulse Rate: 74 Respiratory Rate: 18 Blood Pressure: 145/83 - Physical Exam General Appearance: positive: No acute distress, Alert Eyes Bilateral: positive: Normal inspection ENT: positive: No signs of dehydration Neck: positive: Trachea midline Respiratory: positive: No respiratory distress Abdomen: positive: Non-tender, Soft, Nml bowel sounds Skin: positive: Dryness Extremities: positive: No pedal edema Neurologic/Psychiatric: positive: Oriented x3, Mood/affect nml, Flat affect Palliative Care - POLST Patient has POLST: No Pain: No pain Tiredness/Fatigue: Mild (1-3) Drowsiness/Sedation: None Nausea: None Anorexia: None Dyspnea: None Depression: None Anxiety: Moderate (4-6) Feelings of wellbeing/Perceived Quality of Life: Good, Acceptable, Improved Sleep: Sleeps well Constipation: No Performance Status: Patient is working on building his strength and endurance, they have been going to [employer] and walking around the store for ambulation. He does have a treadmill, but has not returned to this. He is managing his ADLs independently, and some small household tasks. This is an improvement from his baseline. - Palliative Care Discussion: Patient continues to struggle with health literacy, has felt like he has had continuous health problems since he arrived here in the [facility]. We did discuss in the context of his colon cancer, that they would continue to monitor, that even though he is finished treatment, there is always concern for the cancer coming back. We are hoping for the best, but have to be vigilant in watching in case it returns. There is still treatments if it does, but important for him to be compliant and follow-up with oncology, they will map it out for him. He does understand he will get scans after he has been treated, we discussed that this provides this information for the future to compare things from.He does get very anxious about the information, has many questions, though is very shy to ask. Results - Lab Results Lab results reviewed: Yes Lab and Imaging Results: Potassium is at 3.9 on 20 mEq 3 times daily Impression and Recommendations - Palliative Care Impression: This is a 64-year-old [place] gentleman who has stage III sigmoid colon cancer, currently receiving his 11th round of FOLFOX, has improved fatigue but persistent mild peripheral neuropathy, is gaining strength and eating better. He continues with persistent anxiety. Palliative care continue provide support for quality of life issues, assist with symptom management and navigating his treatment and healthcare system. Recommendations/Counseling Done: 1. Right shoulder pain. Most likely attributed rotator cuff tear. He has seen Ortho, with follow-up on 09/23. Did receive some improvement with cortisone shot. Patient would probably further benefit from physical therapy, is using heating pad with good results. 2. Hypokalemia. Patient does have improvement with loose stools, but continues at 3.9. This with his with increase potassium to 3 times daily, instructed to continue with his current dosing we will continue to monitor. 3. Anxiety. Patient does have persistent anxiety. He does present with symptoms of a general anxiety disorder at baseline. Continue to provide counseling and support regarding treatment, follow-up, and continued concern regarding the pandemic. Did enjoy the holidays, and does appear in good spirits. 4. Generalized weakness. Patient has continue to work on progressive ambulation, still has some persistent fatigue but is able to participate in household tasks, patient would benefit from physical therapy on discharge from treatment. Time Spent: 30 minutes with greater than 50% of this done in counseling and support regarding patient's anxiety, symptom management, and anticipatory guidance.
== END 2020-09-10 15:37 | disposition home or self-care (01) ==
LOC: PC 15:36
PROVIDERS: ATTEND Nurse Practitioner Adult Health
DX: Z51.5 Encounter for palliative care (principal); F41.9 Anxiety disorder, unspecified; R53.1 Weakness; G62.0 Drug-induced polyneuropathy; R53.83 Other fatigue; T45.1X5A Adverse effect of antineoplastic and immunosuppressive drugs, initial encounter; M25.511 Pain in right shoulder; E87.6 Hypokalemia; C18.7 Malignant neoplasm of sigmoid colon; Z79.899 Other long term (current) drug therapy; Z79.82 Long term (current) use of aspirin; Z59.9 Problem related to housing and economic circumstances, unspecified; Z60.9 Problem related to social environment, unspecified
CPT/HCPCS: 99214

== ENCOUNTER 2020-10-09 09:24 | Outpatient (CLI) | payer MEDICARE ==
[2020-10-09] MEDS ORDERED: IOVERSOL 320 100 ML VIAL IVP ONE ×2 (09:44→11:27)
[2020-10-09] MEDS ORDERED: BARIUM SULFATE 450 ML BOTTLE PO ONE (11:26)
--- NOTE | 2020-10-09 12:19 | CT Report ---
PROCEDURE: Abdomen/Pelvis W INDICATIONS: COLON CA CONTRAST: IV CONTRAST: Optiray 320 ml: 10 PO CONTRAST: Redi-Cat ml900 TECHNIQUE: After the administration of oral and intravenous contrast, 5 mm thick sections acquired from the diap hragms to the symphysis. 5 mm thick coronal and sagittal reformats were acquired. For radiation dos e reduction, the following was used: automated exposure control, adjustment of mA and/or kV accordin g to patient size. COMPARISON: 02/15/2020, 05/10/2020, 08/05/2020 FINDINGS: Image quality: Excellent. ABDOMEN: Lung bases: Lung bases are clear. Heart size is normal. Solid organs: Liver and spleen are normal in size and enhancement. Gallbladder is contracted, unrem arkable. Biliary system is non dilated. Pancreas enhances normally. No adrenal nodules. Kidneys d emonstrate normal size and enhancement, without hydronephrosis. Peritoneum and bowel: Currently, no colonic masses are identified. Bowel loops demonstrate normal wa ll thickness and caliber. No free fluid or air. Nodes and vessels: No retroperitoneal or mesenteric adenopathy by size criteria. The previous retrop eritoneal adenopathy which was noted on 02/15/2020 and 05/10/2020 studies, but had resolved by 0, has not returned. Aorta and inferior vena cava are normal in size. Miscellaneous: No ventral hernias. PELVIS: Genitourinary: Bladder wall thickness is normal. Miscellaneous: Small left inguinal hernia containing fat. No inguinal adenopathy. Bones: No suspicious bony lesions. No vertebral body compression fractures. IMPRESSION: 1. No evidence of metastatic disease in the abdomen and pelvis. Comment: Please refer to a separate report for CT chest findings which are included in a separate rep ort from the same date. Reviewed by: Santy Cuellar MD on 10/09/2020 12:18 PM PST Approved by: Santy Cuellar MD on 10/09/2020 12:18 PM PST Station ID: [id number]
--- NOTE | 2020-10-09 12:37 | CT Report ---
PROCEDURE: CHEST W INDICATIONS: COLON CA CONTRAST: IV CONTRAST: Optiray 320 ml: 100 PO CONTRAST: Redi-Cat ml900 TECHNIQUE: After the administration of intravenous contrast, 5 mm thick sections acquired from the pulmonary api uday to the posterior costophrenic angles. 7 mm thick coronal MIP reformats were acquired. For radia tion dose reduction, the following was used: automated exposure control, adjustment of mA and/or kV according to patient size. COMPARISON: None. FINDINGS: Image quality: Excellent. Lungs and pleura: No acute air space opacities. Calcified granuloma, left upper lobe, current image 161/3. Unchanged 2 mm pulmonary nodule, left upper lobe, current image 118/3 and previous image 112/ 3. No pleural effusions or pneumothorax. Central and peripheral airways are patent and normal in mike iber. Mediastinum: Heart size is normal. No pericardial effusion. No mediastinal or hilar adenopathy by size criteria. Thoracic aorta and central pulmonary arteries are normal in size. Esophagus is evaristo l in caliber. No hiatal hernia. Bones and chest wall: No suspicious bony lesions. No vertebral body compression fractures. No axil dalton or supraclavicular adenopathy by size criteria. Thyroid gland is unremarkable. Abdomen: Visualized upper abdominal solid organs appear normal. Upper abdominal bowel loops are nor mal in caliber. IMPRESSION: 1. Calcified granuloma, left upper lobe, as well as unchanged 2 mm pulmonary nodule, left upper lobe. 2. No findings are suspicious for metastatic disease. Reviewed by: Santy Cuellar MD on 10/09/2020 12:36 PM PST Approved by: Santy Cuellar MD on 10/09/2020 12:36 PM PST Station ID: [id number]
== END 2020-10-09 09:25 | disposition home or self-care (01) ==
LOC: DI 09:24
PROVIDERS: ATTEND Internal Medicine
DX: C18.7 Malignant neoplasm of sigmoid colon (principal); C77.2 Secondary and unspecified malignant neoplasm of intra-abdominal lymph nodes; R91.1 Solitary pulmonary nodule; J84.10 Pulmonary fibrosis, unspecified
CPT/HCPCS: 71260; 74177; A9270; Q9967

== ENCOUNTER 2020-12-29 01:20 | Inpatient (IN) | payer MEDICARE ==
--- OUTSIDE RECORDS SUMMARY | 2020-12-29 01:25 | EXTERNAL MEDICAL SUMMARY RPT | Continuity of Care Document ---
:1955 Demographics Phone Unavailable Preferred Language Panamanian Marital Status Unknown Rastafari Affiliation Unknown Race Unknown Ethnic Group Unknown Author Organization [facility] Address [address] [phone] Phone Care Team Providers Name Role Phone Willlin Unavailable Unavailable Canales Unavailable Unavailable Problems date description facility [id number] Contact with and (suspected) exposure t o COVID-19 20201118 Encounter for preprocedural laboratory examination 20201119 Age-related nuclear cataract, left eye Medications date description facility 20201119 atorvastatin 20 MG Oral Tablet 20201119 Levothyroxine Sodium 0.175 MG Oral Tabl et 20201119 Hydrochlorothiazide 12.5 MG / Losartan Potassium 50 MG Oral Tablet Procedures date description facility [id number] [facility] date description facility 20201119 [facility] Vital Signs date measurement value source 20201119 BMI 26.7 kg/m2 20201119 BP_diastolic 74 mm[Hg] 20201119 BP_systolic 142 mm[Hg] 20201119 heart_rate 55 /min 20201119 height_metric 162.56 cm 20201119 height_standard 64 in 20201119 respiration_rate 16 /min 20201119 temperature_metric 36.56 C 20201119 temperature_standard 97.8 F 20201119 weight_metric 32.1 kg 20201119 weight_standard 70.76 lb Social History date description facility [id number]
--- NOTE | 2020-12-29 01:26 | ED Physician Documentation ---
PD HPI ABD PAIN - Stated complaint Stated Complaint: ABD PX - History obtained from History obtained from: Patient - History of Present Illness Timing - onset: How many hours ago (few) Timing - duration: Hours (few hours ago soon after eating, developed cramping pain Left abd associated with distension and some nausea. No vomiting. Has had firm/hard BMs recently. No dysuria.) Timing - details: Abrupt onset, Still present Quality: Cramping, Aching, Fullness/distended, Pain Location: LLQ, Other (left sided abd) Improved by: Laying still Worsened by: Moving, Palpation. No: Breathing Associated symptoms: Nausea, Constipation. No: Fever, Vomiting, Diarrhea, Dysur ia, Hematuria, Loss of appetite Similar symptoms before: Has not had sx before Recently seen: Clinic (recent seen MAC by Raji Hernandez for follw up post completed chemo for sigmoid CA with resection. Is to get periodic follow up.), Surgery (resection sigmoid tumor with primary anastamosis March 2020, Dr. Dumont.) Review of Systems Constitutional: denies: Fever, Chills Nose: denies: Rhinorrhea / runny nose, Congestion Throat: denies: Sore throat Respiratory: denies: Cough GI: reports: Abdominal Pain, Abdominal Swelling, Nausea, Constipation. denies: Vomiting, Diarrhea : denies: Dysuria, Frequency Musculoskeletal: denies: Neck pain, Back pain, Extremity swelling Neurologic: denies: Generalized weakness, Near syncope PD PAST MEDICAL HISTORY - Past Medical History Cardiovascular: Hypertension, High cholesterol Respiratory: None Neuro: None Endocrine/Autoimmune: HyPOthyroidism (hx lists goiter with I 131 ablation) GI: Other (colon cancer) : Frequency, Kidney stones HEENT: Chronic vision loss (Retinitis pigmentosa), Chronic hearing loss Psych: Anxiety Musculoskeletal: Fatigue Derm: None - Past Surgical History Past Surgical History: Yes General: Colonoscopy, Other Ortho: Other HEENT: Cataracts - Present Medications Home Medications: Ambulatory Orders Medication Instructions Recorded Confirmed Aspirin Chewable [St [place] 81 mg PO DAILY #30 tablet 02/17/19 12/29/20 Aspirin] Atorvastatin Calcium 20 mg PO QPM 03/27/20 12/29/20 Levothyroxine [Synthroid] 200 mcg PO QDAC tablet 03/30/20 12/29/20 Losartan [Cozaar] 50 mg PO DAILY tablet 03/30/20 12/29/20 Lidocaine/Prilocain 2.5% Cream 30 gm TOP DAILY PRN #1 tube 04/17/20 12/29/20 [Emla 2.5% Cream] OLANZapine [Olanzapine] 5 mg PO UD #24 tablet 04/17/20 12/29/20 ondansetron HCL [Zofran] 8 mg PO BID PRN #30 tablet 04/17/20 12/29/20 Potassium Chloride [Klor-Con M20] 20 meq PO TID 05/09/20 12/29/20 Loperamide HCl [Imodium A-D] 2 mg PO Q6HR PRN 07/31/20 12/29/20 Gabapentin [Neurontin] 300 mg PO TID 12/04/20 12/29/20 - Allergies Allergies/Adverse Reactions: Allergies Allergy/AdvReac Type Severity Reaction Status Date / Time No Known Drug Allergies Allergy Verified 10/16/20 09:44 - Social History Does the pt smoke?: No Smoking Status: Former smoker (quit 16 years ago) Does the pt drink ETOH?: No Does the pt have substance abuse?: No - POLST Patient has POLST: No PD ED PE NORMAL - Vitals Vital signs reviewed: Yes - General General: Alert and oriented X 3, Well developed/nourished, Other (appears in moderate pain) - Neck Neck: Supple, no meningeal sign, No adenopathy - Cardiac Cardiac: RRR, No murmur - Respiratory Respiratory: Clear bilaterally - Abdomen Abdomen: Soft, No organomegaly, Other (Tender in the left abdomen both lower and mid areas with some local guarding. Abdomen is distended. Right side is nontender. There is no percussion tenderness.). No: Normal bowel sounds (diminished) - Male Male : Deferred - Rectal Rectal: Deferred - Back Back: No CVA TTP - Derm Derm: Normal color, Warm and dry - Neuro Neuro: Alert and oriented X 3, No motor deficit, Normal speech Results - Vitals Vitals: Vital Signs - 24 hr 12/29/20 12/29/20 12/29/20 01:31 01:35 02:08 Temperature 37 C 37 C 37 C Heart Rate 79 79 66 Respiratory 18 18 16 Rate Blood Pressure 155/114 H 155/114 H 143/75 H O2 Saturation 97 97 97 12/29/20 12/29/20 12/29/20 02:58 03:57 04:38 Temperature 37 C 37 C 37.1 C Heart Rate 70 60 61 Respiratory 16 16 16 Rate Blood Pressure 147/73 H 140/81 H 139/83 H O2 Saturation 96 95 96 Oxygen O2 Source Room air - Labs Labs: Laboratory Tests 12/29/20 12/29/20 01:55 02:49 WBC 10.1 RBC 4.59 L Hgb 15.1 Hct 43.5 MCV 94.8 H MCH 32.9 H MCHC 34.7 RDW 12.2 Plt Count 148 MPV 8.9 Neut # (Auto) 6.6 Lymph # (Auto) 1.9 [place] # (Auto) 0.5 Eos # (Auto) 0.9 H Baso # (Auto) 0.0 Absolute Nucleated RBC 0.00 Nucleated RBC % 0.0 Sodium 135 Potassium 3.6 Chloride 104 Carbon Dioxide 22 Anion Gap 9.0 BUN 20 Creatinine 1.0 Estimated GFR (MDRD) 75 L Glucose 127 H Calcium 8.8 Total Bilirubin 0.8 AST 21 ALT 17 Alkaline Phosphatase 83 Total Protein 7.7 Albumin 3.9 Globulin 3.8 Albumin/Globulin Ratio 1.0 Lipase 24 - Rads (name of study) abd/pelvic CT Radiology: Prelim report reviewed (Early mid small bowel obstruction versus partial small bowel obstruction. Early distal appendicitis. Equivocal wall thickening involving a short segment of the mid sigmoid colon.), See rad report PD MEDICAL DECISION MAKING - ED course Complexity details: reviewed old records, reviewed results (The CT showing some thickening at the sigmoid is likely where his anastomosis was. His findings of bowel obstruction fit clinically with the exam and history. Interesting findings for early distal appendicitis. Will cover with antibiotics and surgery will see him regarding both issues.), re-evaluated patient (He is more comfortable after fluids and pain medicines. He still is having a distended ab domen. Some tenderness to the left side. Not tender in the right.), considered differential (Seems likely consistent with bowel obstruction. Will get CT to better evaluate.), d/w patient, d/w entry level sales consultant (Dr. Piedra, lead radiation therapist for surgery.) Departure - Departure Disposition: ED Place in Observation Clinical Impression: Small bowel obstruction Abdominal pain Qualifiers: Abdominal location: left lower quadrant Qualified Code(s): R10.32 - Left lower quadrant pain Appendicitis Qualifiers: Appendicitis type: unspecified Qualified Code(s): K37 - Unspecified appendicitis Condition: Stable Record reviewed to determine appropriate education?: Yes
--- OUTSIDE RECORDS SUMMARY | 2020-12-29 01:29 | EXTERNAL MEDICAL SUMMARY RPT | Continuity of Care Document ---
:1955 Demographics Phone Unavailable Preferred Language Mauritian Marital Status Unknown Mandaeism Affiliation Unknown Race Unknown Ethnic Group Unknown Author Organization [place] Address [address] [phone] Phone Care Team Providers Name Role Phone Willlin Unavailable Unavailable Canales Unavailable Unavailable Problems date description facility [id number] Contact with and (suspected) exposure t o COVID-19 [facility] 20201118 Encounter for preprocedural laboratory examination [facility] 20201119 Age-related nuclear cataract, left eye [facility] Medications date description facility 20201119 atorvastatin 20 MG Oral Tablet [facility] 20201119 Levothyroxine Sodium 0.175 MG Oral Tabl et [facility] 20201119 Hydrochlorothiazide 12.5 MG / Losartan Potassium 50 MG [facility] Oral Tablet Procedures date description facility [id number] [facility] date description facility 20201119 [facility] Vital Signs date measurement value source 20201119 BMI 26.7 kg/m2 20201119 BP_diastolic 74 mm[Hg] 20201119 BP_systolic 142 mm[Hg] 20201119 heart_rate 55 /min 20201119 height_metric 162.56 cm 20201119 height_standard 64 in 20201119 respiration_rate 16 /min 20201119 temperature_metric 36.56 C 20201119 temperature_standard 97.8 F 20201119 weight_metric 32.1 kg 20201119 weight_standard 70.76 lb Social History date description facility [id number]
[2020-12-29] MEDS ORDERED: KETOROLAC 15 MG/ML VIAL IVP STA (01:47)
[2020-12-29] MEDS ORDERED: HYDROmorphone 1 MG/ML CARPUJECT IVP STA (01:47)
[2020-12-29] MEDS ORDERED: ONDANSETRON 4 MG/2 ML VIAL IVP STA (01:47)
[2020-12-29] MEDS ORDERED: SODIUM CHLORIDE 0.9% 1,000 ML IV STA (01:47)
[2020-12-29] MEDS ORDERED: IOPAMIDOL-300 100 ML VIAL ONE ×2 (01:55→03:23)
[2020-12-29 02:07] LABS: BASOPHILS % (AUTO) 0.3 %; EOSINOPHILS # (AUTO) 0.9 10^3/uL (0.0-0.7); HCT - HEMATOCRIT 43.5 % (42.0-52.0); HGB - HEMOGLOBIN 15.1 g/dL (14.0-18.0); LYMPHOCYTES # (AUTO) 1.9 10^3/uL (1.5-3.5); LYMPHOCYTES % (AUTO) 18.9 %; MEAN CORPUSCULAR HEMOGLOBIN 32.9 pg (27.0-31.0); MEAN CORPUSCULAR HGB CONC 34.7 g/dL (32.0-36.0); MEAN CORPUSCULAR VOLUME 94.8 fL (80.0-94.0); MEAN PLATELET VOLUME 8.9 fL (7.4-11.4); MONOCYTES # (AUTO) 0.5 10^3/uL (0.0-1.0); MONOCYTES % (AUTO) 5.4 %; NEUTROPHILS # (AUTO) 6.6 10^3/uL (1.5-6.6); PLT - PLATELET COUNT 148 10^3/uL (130-450); RED BLOOD COUNT 4.59 10^6/uL (4.70-6.10); RED CELL DISTRIBUTION WIDTH 12.2 % (12.0-15.0); WHITE BLOOD COUNT 10.1 x10^3/uL (4.8-10.8)
[2020-12-29 02:56] LABS: ALBUMIN 3.9 g/dL (3.2-5.5); BILIRUBIN,TOTAL 0.8 mg/dL (0.2-1.0); CALCIUM 8.8 mg/dL (8.5-10.3); POTASSIUM 3.6 mmol/L (3.5-5.0); TOTAL PROTEIN 7.7 g/dL (6.7-8.2)
[2020-12-29] MEDS: IOPAMIDOL-300 100 ML VIAL IVP ONE (03:52)
[2020-12-29] MEDS ORDERED: PIPERACILLIN/TAZOBACTAM 3.375 GM in SODIUM CHLORIDE 0.9% MINIBAG 100 ML IV STA (04:37)
[2020-12-29] MEDS ORDERED: LACTATED RINGERS 1,000 ML IV STA (04:38)
[2020-12-29 04:48] LABS: B. PARAPERTUSSIS- RESP PCR PAN NOT DETECTED; B. PERTUSSIS- RESP PCR PANEL NOT DETECTED; C. PNEUMONIAE- RESP PCR PANEL NOT DETECTED; CORONAVIRUS 229E-RESP PCR NOT DETECTED; CORONAVIRUS HKU1-RESP PCR NOT DETECTED; CORONAVIRUS NL63-RESP PCR NOT DETECTED; CORONAVIRUS OC43-RESP PCR NOT DETECTED; HUMAN METAPNEUMOVIRUS NOT DETECTED; INFLUENZA A- RESP PCR PANEL NOT DETECTED; INFLUENZA B - RESP PCR PANEL NOT DETECTED; M. PNEUMONIAE- RESP PCR PANEL NOT DETECTED; PARAINFLUENZA VIRUS 1 NOT DETECTED; PARAINFLUENZA VIRUS 2 NOT DETECTED; PARAINFLUENZA VIRUS 3 NOT DETECTED; PARAINFLUENZA VIRUS 4 NOT DETECTED; RHINOVIRUS/ENTEROVIRUS NOT DETECTED; RSV- RESP PCR PANEL NOT DETECTED; SARS-CoV-2 -RESP PCR PANEL NOT DETECTED
[2020-12-29] MEDS ORDERED: ONDANSETRON 4 MG/2 ML VIAL IVP PRN (05:54)
[2020-12-29] MEDS ORDERED: HYDROmorphone 0.5 MG/0.5 ML SYRINGE IVP PRN (05:54)
[2020-12-29] MEDS ORDERED: ACETAMINOPHEN 1,000 MG/100 ML 100 ML IV PRN (05:54)
--- OUTSIDE RECORDS SUMMARY | 2020-12-29 06:44 | EXTERNAL MEDICAL SUMMARY RPT | Continuity of Care Document ---
:1955 Demographics Phone Unavailable Preferred Language New Zealander Marital Status Unknown Latter-Day Affiliation Unknown Race Unknown Ethnic Group Unknown Author Organization [place] Address [address] [phone] Phone Care Team Providers Name Role Phone Willlin Unavailable Unavailable Canales Unavailable Unavailable Problems date description facility 20201118 Contact with and (suspected) exposure t o COVID-19 [facility] 20201118 Encounter for preprocedural laboratory examination [facility] 20201119 Age-related nuclear cataract, left eye [facility] Medications date description facility 20201119 atorvastatin [address] [facility] 20201119 Levothyroxine Sodium 0.175 [address] et [facility] 20201119 Hydrochlorothiazide 12.5 MG / Losartan Potassium [address] [facility] Oral Tablet Procedures date description facility [id number] [facility] date description facility 20201119 [facility] Vital Signs date measurement value source 20201119 BMI 26.7 kg/m2 20201119 BP_diastolic 74 mm[Hg] 20201119 BP_systolic 142 mm[Hg] 20201119 heart_rate 55 /min 20201119 height_metric 162.56 cm 20201119 height_standard 64 in 20201119 respiration_rate 16 /min 20201119 temperature_metric 36.56 C 20201119 temperature_standard 97.8 F 20201119 weight_metric 32.1 kg 20201119 weight_standard 70.76 lb Social History date description facility [id number]
[2020-12-29] MEDS: methocarbamoL 500 MG TABLET PO SCH ×3 (06:58→18:15)
[2020-12-29] MEDS: LEVOTHYROXINE 100 MCG TABLET PO SCH (06:58)
[2020-12-29] MEDS: GABAPENTIN 300 MG CAPSULE PO SCH ×3 (06:58→21:44)
[2020-12-29] MEDS: D5NS W/20 MEQ KCL 1,000 ML IV SCH ×3 (06:58→22:17)
[2020-12-29] MEDS: PANTOPRAZOLE 40 MG VIAL IVP SCH (06:59)
[2020-12-29] MEDS: METOCLOPRAMIDE 10 MG/2 ML VIAL IVP SCH ×3 (07:02→18:15)
[2020-12-29 07:37] LABS: BILIRUBIN,URINE NEGATIVE (NEGATIVE); CLARITY,URINE CLEAR (CLEAR); GLUCOSE, URINE (UA) NEGATIVE (NEGATIVE); KETONES,URINE (UA) NEGATIVE (NEGATIVE); LEUKOCYTE ESTERASE, URINE NEGATIVE (NEGATIVE); NITRITE,URINE NEGATIVE (NEGATIVE); OCCULT BLOOD,URINE LARGE (NEGATIVE); PROTEIN,URINE NEGATIVE (NEGATIVE); UROBILINOGEN,URINE 0.2 (NORMAL) E.U./dL (NORMAL)
[2020-12-29 07:44] LABS: BACTERIA,URINE None Seen /HPF (None Seen); EPITHELIAL CELLS,UR None Seen /HPF (<= Few); RBC,URINE 0-5 /HPF (0-5); SQUAMOUS EPITHELIAL CELL,UR NONE SEEN (<= Few); WBC,URINE 0-3 /HPF (0-3)
[2020-12-29] MEDS: LOSARTAN 50 MG TABLET PO SCH (08:05)
[2020-12-29] MEDS: SODIUM CHLORIDE FLUSH 0.9% 10 ML SYRINGE IVP SCH ×2 (08:05→16:07)
[2020-12-29] MEDS: ENOXAPARIN 40 MG/0.4 ML SYRINGE SUBQ SCH (08:05)
--- NOTE | 2020-12-29 08:23 | CT Report ---
PROCEDURE: Abdomen/Pelvis W INDICATIONS: LLQ Abdominal pain, diverticulitis suspected CONTRAST: IV CONTRAST: Isovue 300 ml: 100 PO CONTRAST: *NO PO CONTRAST TECHNIQUE: After the administration of nonionic contrast, 5 mm thick sections acquired from the diaphragms to th e symphysis. 5 mm thick coronal and sagittal reformats were acquired. For radiation dose reduction, the following was used: automated exposure control, adjustment of mA and/or kV according to patient size. COMPARISON: CT abdomen and pelvis dated 08/05/2020. FINDINGS: Image quality: Excellent. ABDOMEN: Lung bases: Basilar atelectasis.. Heart size is normal. Multivessel coronary vascular calcification s. Solid organs: Liver and spleen are normal in size and enhancement. Trace perihepatic and subdiaphra gmatic ascites. Gallbladder is unremarkable. Biliary system is non dilated. Pancreas enhances evaristo lly. No adrenal nodules. Kidneys demonstrate normal size and enhancement, without hydronephrosis. Simple cyst noted within the posterior inferior pole of the right kidney. Contrast is noted within th e collecting system. No filling defect within the opacified collecting system. Peritoneum and bowel: The stomach is unremarkable. The proximal small bowel is normal. Multiple loop s of small bowel within the anterior mid abdomen are dilated with air-fluid levels measuring up to 4. 0 cm. There is transition within the mid abdomen. There is some mucosal hyperenhancement. The distal small bowel is decompressed. The appendix demonstrates appendicolith and mildly increased in size. Sm all amount of inflammation is noted surrounding. There is a small amount of fluid within the left par acolic gutter. There is likely focal wall thickening of the mid to distal sigmoid colon measuring keyshawn roximately 3.5 cm. This is however limited by nondistention. Mild additional mesenteric edema. No pne umatosis or intra-abdominal free air. Nodes and vessels: No retroperitoneal or mesenteric adenopathy by size criteria. Aorta and inferior vena cava are normal in size. Miscellaneous: No ventral hernias. PELVIS: Genitourinary: Bladder wall thickness is normal. Prostate size along the upper limits of normal. Miscellaneous: No inguinal hernias or adenopathy. Bones: No suspicious bony lesions. No vertebral body compression fractures. IMPRESSION: Early mid small bowel obstruction. Findings suggestive of early appendicitis. Wall thickening versus pseudowall thickening given nondistention involving a 3.5 segment of mid to di stal sigmoid colon. Neoplasm not excluded. Infectious or inflammatory changes are also within the dif ferential. Agree with preliminary report. Reviewed by: Bear Ferreira DO on 12/29/2020 7:22 AM CARMEN Approved by: Bear Ferreira DO on 12/29/2020 7:22 AM CARMEN Station ID: [id number]
[2020-12-29] MEDS ORDERED: OLANZAPINE 5 MG PO SCH (09:00)
--- NOTE | 2020-12-29 14:32 | PHARMACY PROGRESS NOTE ---
- Best Possible Medication History Admit Date and Time: 12/29/20 0554 Processed by: Nursing Medication History completed: Yes Patient Interview: Completed Secondary Source(s): Pharmacy records, Insurance records As the person ultimately responsible for medication therapy, providers are able to order a medication from an existing home medication list in [facility] via the "Reconcile Routine" prior to Confirmation of that medication by retail support associate. Such practice is discouraged except when the physician, in their clinical judgment, deems that a medical need exists for a medication without regard to previous use.
--- NOTE | 2020-12-29 17:00 | SURGERY HX AND PHYSICAL(T) ---
Surgical History & Physical - Chief Complaint/HPI Chief Complaint: SBO History of Present Illness: 65-year-old male with stage IV colon cancer status post palliative chemotherapy who presents with decreasing bowel function abdominal distention and discomfort. He presented to the emergency room at which time CAT scan revealed early partial small bowel obstruction and early appendicitis. No leukocytosis. Admitted for observation. - PMH/PSH/Social Hx Does the pt have a hx of MRSA?: No Neurological History: None Eyes, Ears, Nose, Throat: Chronic vision loss (Retinitis pigmentosa), Chronic hearing loss Cardiovascular: Hypertension, High cholesterol Respiratory: None Skin: None Endocrine/Autoimmune: HyPOthyroidism Gastrointestinal: Other Urinary: Frequency, Kidney stones Musculoskeletal: Fatigue Blood Disorders: None Psychiatric: Anxiety PMH Other: colon ca General: Bowel surgery, Colonoscopy, Other Orthopedic: Other Eyes Ears Nose Throat (EENT): Cataracts Smoking Status: Former smoker Does the pt drink ETOH?: No Does the pt have substance abuse?: No - Home Meds and Allergies Home Medications: Atorvastatin Calcium 20 mg PO QPM 03/27/20 Potassium Chloride [Klor-Con M20] 20 meq PO TID 05/09/20 Loperamide HCl [Imodium A-D] 2 mg PO Q6HR PRN 07/31/20 Gabapentin [Neurontin] 300 mg PO TID 12/04/20 Allergies/Adverse Reactions: Allergies Allergy/AdvReac Type Severity Reaction Status Date / Time No Known Drug Allergies Allergy Verified 10/16/20 09:44 - Review of Systems Constitutional: Fatigue, Weakness Respiratory: No: Shortness of breath Gastrointestinal: Nausea, Abdominal pain. No: Flatus - Vital Signs Heart Rate: 60 Blood Pressure: 132/75 Temperature: 36.6 C Respiratory Rate: 18 O2 Saturation: 95 Weight (kg): 70.76 kg Height: 1.64 m - Physical Exam General Appearance: positive: No acute distress Eyes Bilatera: positive: Normal inspection, PERRL, EOMI ENT: positive: ENT inspection nml Neck: positive: Nml inspection Respiratory: positive: Chest non-tender Cardiovascular: positive: Regular rate & rhythm Abdomen: positive: Non-tender, Other (Positive distention. No rebound. No guarding. No hernias. Well healed scar.). negative: Tenderness, Guarding, Rebound Back: positive: Nml inspection Skin: positive: Color nml Extremities: positive: Non-tender, Full ROM, Nml appearance Neurologic/Psychiatric: positive: Oriented x3, CN's nml (2-12), Motor nml, Sensation nml, Mood/affect nml - Patient Review Patient Review: Problems were reviewed with the patient during this visit. Medications were reviewed with the patient during this visit. Allergies were reviewed this patient during this visit. Pertinent Tests Reviewed: All pertitent test for this patient were reviewed. - Assessment & Plan Assessment and Plan: 65 male with history of exploratory laparotomy, secondary to sigmoid malignancy positive for all lymphadenopathy. He underwent palliative chemotherapy. He presents with early partial small bowel obstruction with associated obstipation. He also has early appendicitis however no leukocytosis by imaging. No peritoneal signs at this time. Plan as follows: 1. bowel rest, nasogastric decompression, IV fluid resuscitation. 2. Serial abdominal exams, plain film imaging, possible repeat imaging with CT and contrast challenge. 3. May need operative intervention if fails conservative management. Will follow closely. 4. Electrolytes normal at this time we will continue to monitor them with daily lab draws. 5. We will repeat imaging to assess for evolution of reported appendicitis and resolution of obstruction in this postoperative patient for whom obstruction is likely either malignant and/or postoperative in the setting of adhesions CT abdomen pelvis impression: 1. Early mid small bowel obstruction 2. Findings suggestive of early appendicitis 3. Wall thickening versus pseudowall thickening given nondistention involving a 3.5 cm segment of mid to distal sigmoid colon. Neoplasm not excluded. Infectious or inflammatory changes are also within the differential.
[2020-12-29 17:29] LABS: BASOPHILS % (AUTO) 0.5 %; EOSINOPHILS # (AUTO) 0.9 10^3/uL (0.0-0.7); EOSINOPHILS % (AUTO) 14.8 %; HCT - HEMATOCRIT 39.8 % (42.0-52.0); HGB - HEMOGLOBIN 13.2 g/dL (14.0-18.0); LYMPHOCYTES # (AUTO) 2.3 10^3/uL (1.5-3.5); LYMPHOCYTES % (AUTO) 36.9 %; MEAN CORPUSCULAR HEMOGLOBIN 32.7 pg (27.0-31.0); MEAN CORPUSCULAR HGB CONC 33.2 g/dL (32.0-36.0); MEAN CORPUSCULAR VOLUME 98.5 fL (80.0-94.0); MEAN PLATELET VOLUME 8.5 fL (7.4-11.4); MONOCYTES # (AUTO) 0.4 10^3/uL (0.0-1.0); MONOCYTES % (AUTO) 7.1 %; NEUTROPHILS # (AUTO) 2.5 10^3/uL (1.5-6.6); NEUTROPHILS % (AUTO) 40.5 %; PLT - PLATELET COUNT 131 10^3/uL (130-450); RED BLOOD COUNT 4.04 10^6/uL (4.70-6.10); RED CELL DISTRIBUTION WIDTH 12.3 % (12.0-15.0); WHITE BLOOD COUNT 6.2 x10^3/uL (4.8-10.8)
[2020-12-29 17:42] LABS: ALBUMIN 3.6 g/dL (3.2-5.5); ALBUMIN/GLOBULIN RATIO 1.1 (1.0-2.2); CALCIUM 8.3 mg/dL (8.5-10.3); CREATININE 1.2 mg/dL (0.6-1.2); TOTAL PROTEIN 6.9 g/dL (6.7-8.2)
[2020-12-29] MEDS: ATORVASTATIN 10 MG TABLET PO SCH (21:44)
[2020-12-30] MEDS ORDERED: IOPAMIDOL-300 100 ML VIAL ONE (02:28)
[2020-12-30] MEDS ORDERED: IOPAMIDOL-300 50 ML VIAL ONE (02:28)
[2020-12-30] MEDS: methocarbamoL 500 MG TABLET PO SCH ×5 (04:05→23:59)
[2020-12-30] MEDS: SODIUM CHLORIDE FLUSH 0.9% 10 ML SYRINGE IVP SCH ×3 (04:06→16:15)
[2020-12-30] MEDS: METOCLOPRAMIDE 10 MG/2 ML VIAL IVP SCH ×5 (04:06→23:59)
[2020-12-30] MEDS: IOPAMIDOL-300 100 ML VIAL IVP ONE (04:15)
[2020-12-30] MEDS ORDERED: IOPAMIDOL-300 50 ML VIAL PO ONE (04:34)
[2020-12-30] MEDS: SODIUM CHLORIDE FLUSH 0.9% 10 ML SYRINGE IVP PRN ×2 (04:50→06:01)
[2020-12-30 04:53] LABS: BASOPHILS % (AUTO) 0.6 %; EOSINOPHILS % (AUTO) 17.9 %; HCT - HEMATOCRIT 39.7 % (42.0-52.0); HGB - HEMOGLOBIN 13.5 g/dL (14.0-18.0); LYMPHOCYTES % (AUTO) 37.4 %; MEAN CORPUSCULAR HEMOGLOBIN 32.8 pg (27.0-31.0); MEAN CORPUSCULAR VOLUME 96.6 fL (80.0-94.0); MEAN PLATELET VOLUME 8.8 fL (7.4-11.4); MONOCYTES # (AUTO) 0.4 10^3/uL (0.0-1.0); MONOCYTES % (AUTO) 7.8 %; NEUTROPHILS # (AUTO) 1.9 10^3/uL (1.5-6.6); NEUTROPHILS % (AUTO) 36.1 %; PLT - PLATELET COUNT 131 10^3/uL (130-450); RED BLOOD COUNT 4.11 10^6/uL (4.70-6.10); RED CELL DISTRIBUTION WIDTH 12.2 % (12.0-15.0); WHITE BLOOD COUNT 5.4 x10^3/uL (4.8-10.8)
[2020-12-30 05:08] LABS: ALBUMIN 3.6 g/dL (3.2-5.5); BILIRUBIN,TOTAL 0.9 mg/dL (0.2-1.0); CALCIUM 8.4 mg/dL (8.5-10.3); POTASSIUM 3.4 mmol/L (3.5-5.0); TOTAL PROTEIN 7.1 g/dL (6.7-8.2)
[2020-12-30] MEDS: LEVOTHYROXINE 100 MCG TABLET PO SCH (06:01)
[2020-12-30] MEDS: PANTOPRAZOLE 40 MG VIAL IVP SCH (06:01)
[2020-12-30] MEDS: GABAPENTIN 300 MG CAPSULE PO SCH ×3 (06:02→21:20)
[2020-12-30] MEDS: D5NS W/20 MEQ KCL 1,000 ML IV SCH ×3 (06:29→23:58)
[2020-12-30] MEDS: ENOXAPARIN 40 MG/0.4 ML SYRINGE SUBQ SCH (08:55)
[2020-12-30] MEDS: LOSARTAN 50 MG TABLET PO SCH (08:55)
--- NOTE | 2020-12-30 09:30 | CT Report ---
PROCEDURE: Abdomen/Pelvis W INDICATIONS: evaluate for resolution of sbo and eval for appe CONTRAST: IV CONTRAST: Isovue 300 ml: 100 PO CONTRAST: Isovue 300 ml50 TECHNIQUE: After the administration of nonionic contrast, 5 mm thick sections acquired from the diaphragms to th e symphysis. 5 mm thick coronal and sagittal reformats were acquired. For radiation dose reduction, the following was used: automated exposure control, adjustment of mA and/or kV according to patient size. COMPARISON: CT abdomen/pelvis 12/29/2020 and 10/09/2020 FINDINGS: Image quality: Excellent. ABDOMEN: Lung bases: Lung bases are mildly abnormal with what appears to be linear atelectasis.. Heart size is at the upper limits of normal, and there is a small pericardial effusion. Solid organs: Liver and spleen are normal in size and enhancement. There is a small amount of perih epatic free fluid, but no free air. Gallbladder appears normal Biliary system is non dilated. Pancr eas enhances normally. No adrenal nodules. Kidneys demonstrate normal size and enhancement, without hydronephrosis. Peritoneum and bowel: Colonic bowel loops demonstrate normal wall thickness and caliber. There is sm all bowel dilatation superiorly, measuring up to 4.5 cm, and below this level on the left there is ab normal small bowel mural thickening and edema, centered on CT series 3 image 57 and above and below. No abscess is found. Nodes and vessels: No retroperitoneal or mesenteric adenopathy by size criteria. Aorta and inferior vena cava are normal in size. Miscellaneous: No ventral hernias. PELVIS: Genitourinary: Bladder wall thickness is normal. Miscellaneous: No inguinal hernias or adenopathy. At the right lower quadrant the appendix is again noted and appears improved in appearance, free of obstruction or adjacent inflammation. This was an area of concern from one day ago but currently is not suspected to represent acute appendicitis or ch ronic appendicitis. Bones: No suspicious bony lesions. No vertebral body compression fractures. IMPRESSION: 1. There is a small bowel stenosis or obstruction pattern, with the small bowel at the right mid abdo men measuring up to 4.5 cm in maximal dimension. The upper limits of normal is 3.[address] one day ago had raises concern for possible appendicitis. The appendix is now found to be n ormal. Appendicitis is not suspected by this study. 3. On the left below the area of maximal small bowel distention there is abnormal acute small bowel m ural thickening, of uncertain etiology. A mesenteric arterial or venous thrombosis is not seen to exp erika this focal abnormality. Acute infection is a potential cause. Malignancy is not considered likel y given the absence of a similar appearance in this area one day ago. A small amount of perihepatic f ree fluid is associated. Reviewed by: Frank Rowley MD on 12/30/2020 9:29 AM PDT Approved by: Frank Rowley MD on 12/30/2020 9:29 AM PDT Station ID: [id number]
--- NOTE | 2020-12-30 17:13 | PROVIDER PROGRESS NOTE ---
Progress Note Subjective Patient with persistent abdominal distention. Minimal bowel function. Continues with abdominal discomfort Repeat CT scan obtained. Patient discussed with Dr. Dumont who will be seeing the patient tomorrow Objective Afebrile hemodynamically acceptable General Appearance: positive: No acute distress Eyes Bilateral: positive: Normal inspection ENT: positive: ENT inspection nml Neck: positive: Nml inspection Respiratory: positive: Chest non-tender, No respiratory distress, Breath sounds nml. negative: Wheezes, Rales, Rhonchi Cardiovascular: positive: Regular rate & rhythm Abdomen: See below Extremities: positive: Non-tender, Full ROM, Nml appearance Neurologic/Psychiatric: positive: Oriented x3, CN's nml (2-12) Abdomen softly distended, mildly diffuse, no rebound, no guarding, well-healed midline scar. No hernias. Impression/Plan 65-year-old male with metastatic colorectal cancer status post anterior resection with anastomosis 25 out of 25+ lymph nodes with bulky retroperitoneal lymphadenopathy. Presented with bowel obstruction and concern for appendicitis. Repeat CAT scan revealed no evidence of appendicitis. However persistent small bowel obstruction which appears worsened. Discussed with Dr. Dumont will see the patient tomorrow. (1) GI - IVF, bowel regimen, bowel rest. Opiate sparring analgesia. (2) SURGERY -repeat CAT scan shows persistent obstruction. Worsening ileitis. Potential for malignant obstruction. (3) Renal/Lytes - continue IVF. Renal indices within normal limits. (4) Respiratory - O2 as necessary. Continue IS. (5) Heme - Will continue with DVT ppx. H/H stable. (6) Cardiovascular - HD acceptable. (7) Neuro - Opiate sparring analgesia. Antispasmodics with Robaxin. Neuropathic agents. (8) Immune/Infectious Disease -no need for antibiotics at this time.
[2020-12-30] MEDS: ATORVASTATIN 10 MG TABLET PO SCH (21:20)
[2020-12-31 05:26] LABS: BASOPHILS % (AUTO) 0.8 %; EOSINOPHILS # (AUTO) 0.3 10^3/uL (0.0-0.7); HCT - HEMATOCRIT 27.6 % (42.0-52.0); HGB - HEMOGLOBIN 8.7 g/dL (14.0-18.0); LYMPHOCYTES # (AUTO) 1.2 10^3/uL (1.5-3.5); LYMPHOCYTES % (AUTO) 32.2 %; MEAN CORPUSCULAR HEMOGLOBIN 29.3 pg (27.0-31.0); MEAN CORPUSCULAR HGB CONC 31.5 g/dL (32.0-36.0); MEAN CORPUSCULAR VOLUME 92.9 fL (80.0-94.0); MEAN PLATELET VOLUME 8.5 fL (7.4-11.4); MONOCYTES # (AUTO) 0.6 10^3/uL (0.0-1.0); MONOCYTES % (AUTO) 16.4 %; NEUTROPHILS # (AUTO) 1.7 10^3/uL (1.5-6.6); NEUTROPHILS % (AUTO) 43.3 %; PLT - PLATELET COUNT 167 10^3/uL (130-450); RED BLOOD COUNT 2.97 10^6/uL (4.70-6.10); RED CELL DISTRIBUTION WIDTH 15.2 % (12.0-15.0); WHITE BLOOD COUNT 3.9 x10^3/uL (4.8-10.8)
[2020-12-31 05:37] LABS: ALBUMIN 3.1 g/dL (3.2-5.5); ALBUMIN/GLOBULIN RATIO 0.6 (1.0-2.2); BILIRUBIN,TOTAL 0.6 mg/dL (0.2-1.0); CALCIUM 8.8 mg/dL (8.5-10.3); CREATININE 0.8 mg/dL (0.6-1.2); POTASSIUM 3.9 mmol/L (3.5-5.0); TOTAL PROTEIN 7.9 g/dL (6.7-8.2)
[2020-12-31] MEDS: GABAPENTIN 300 MG CAPSULE PO SCH ×3 (06:09→21:12)
[2020-12-31] MEDS: LEVOTHYROXINE 100 MCG TABLET PO SCH (06:09)
[2020-12-31] MEDS: PANTOPRAZOLE 40 MG VIAL IVP SCH (06:11)
[2020-12-31] MEDS: SODIUM CHLORIDE FLUSH 0.9% 10 ML SYRINGE IVP PRN ×2 (06:12→11:01)
[2020-12-31] MEDS: methocarbamoL 500 MG TABLET PO SCH ×4 (06:26→23:40)
[2020-12-31] MEDS: SODIUM CHLORIDE FLUSH 0.9% 10 ML SYRINGE IVP SCH ×3 (06:26→17:14)
[2020-12-31] MEDS: METOCLOPRAMIDE 10 MG/2 ML VIAL IVP SCH ×4 (06:26→23:40)
[2020-12-31] MEDS: ENOXAPARIN 40 MG/0.4 ML SYRINGE SUBQ SCH (08:46)
[2020-12-31] MEDS: LOSARTAN 50 MG TABLET PO SCH (08:46)
[2020-12-31] MEDS: D5NS W/20 MEQ KCL 1,000 ML IV SCH ×2 (10:03→19:27)
--- NOTE | 2020-12-31 17:02 | PROVIDER PROGRESS NOTE ---
Subjective - Prog Note Date Prog Note Date: 12/31/20 - Subjective Pt reports feeling: Improved (no pain. had a bm. tolerating clears) Objective - Vital Signs/Intake & Output Vital Signs: Vital Signs x48h Temp Pulse Resp BP Pulse Ox 12/31/20 16:09 36.6 C 73 18 149/97 H 100 12/31/20 12:06 36.8 C 57 L 17 139/76 H 98 Intake & Output: Intake & Output 12/28/20 12/29/20 12/30/20 12/31/20 23:59 23:59 23:59 23:59 Intake Total 3722.923 2954.166 1000 Output Total 200 Balance 3522.923 2954.166 1000 - Objective General Appearance: positive: No acute distress, Alert Neck: positive: No JVD Respiratory: positive: No respiratory distress Abdomen: positive: Non-tender, No distention - Lab Results Fish Bones: 12/31/20 05:15 12/31/20 05:15 Other Labs: Lab Results x24hrs 12/31/20 12/31/20 Range/Units 05:15 05:15 WBC 3.9 L (4.8-10.8) x10^3/uL RBC 2.97 L (4.70-6.10) 10^6/uL Hgb 8.7 L (14.0-18.0) g/dL Hct 27.6 L (42.0-52.0) % MCV 92.9 (80.0-94.0) fL MCH 29.3 (27.0-31.0) pg MCHC 31.5 L (32.0-36.0) g/dL RDW 15.2 H (12.0-15.0) % Plt Count 167 (130-450) 10^3/uL MPV 8.5 (7.4-11.4) fL Neut # (Auto) 1.7 (1.5-6.6) 10^3/uL Lymph # (Auto) 1.2 L (1.5-3.5) 10^3/uL [place] # (Auto) 0.6 (0.0-1.0) 10^3/uL Eos # (Auto) 0.3 (0.0-0.7) 10^3/uL Baso # (Auto) 0.0 (0.0-0.1) 10^3/uL Absolute Nucleated RBC 0.00 x10^3/uL Nucleated RBC % 0.0 /100WBC Sodium 136 (135-145) mmol/L Potassium 3.9 (3.5-5.0) mmol/L Chloride 101 (101-111) mmol/L Carbon Dioxide 26 (21-32) mmol/L Anion Gap 9.0 (6-13) BUN 18 (6-20) mg/dL Creatinine 0.8 (0.6-1.2) mg/dL Estimated GFR (MDRD) 97 (>89) Glucose 96 (70-100) mg/dL Calcium 8.8 (8.5-10.3) mg/dL Total Bilirubin 0.6 (0.2-1.0) mg/dL AST 47 H (10-42) IU/L ALT 77 H (10-60) IU/L Alkaline Phosphatase 113 (42-121) IU/L Total Protein 7.9 (6.7-8.2) g/dL Albumin 3.1 L (3.2-5.5) g/dL Globulin 4.8 H (2.1-4.2) g/dL Albumin/Globulin Ratio 0.6 L (1.0-2.2) Assessment/Plan - Problem List (1) Small bowel obstruction Impression: improving. bm today and tolerating clears continue present [facility] tomorrow if taking adequate po and minimal to no abdominal pain
[2020-12-31] MEDS: ATORVASTATIN 10 MG TABLET PO SCH (21:12)
[2021-01-01] MEDS: SODIUM CHLORIDE FLUSH 0.9% 10 ML SYRINGE IVP SCH ×2 (00:56→09:29)
[2021-01-01] MEDS: D5NS W/20 MEQ KCL 1,000 ML IV SCH ×2 (05:02→09:29)
[2021-01-01 05:13] LABS: BASOPHILS % (AUTO) 0.3 %; EOSINOPHILS % (AUTO) 16.4 %; HCT - HEMATOCRIT 38.6 % (42.0-52.0); HGB - HEMOGLOBIN 13.2 g/dL (14.0-18.0); LYMPHOCYTES # (AUTO) 2.4 10^3/uL (1.5-3.5); LYMPHOCYTES % (AUTO) 41.3 %; MEAN CORPUSCULAR HEMOGLOBIN 32.7 pg (27.0-31.0); MEAN CORPUSCULAR HGB CONC 34.2 g/dL (32.0-36.0); MEAN CORPUSCULAR VOLUME 95.5 fL (80.0-94.0); MEAN PLATELET VOLUME 8.9 fL (7.4-11.4); MONOCYTES # (AUTO) 0.5 10^3/uL (0.0-1.0); MONOCYTES % (AUTO) 7.9 %; NEUTROPHILS % (AUTO) 33.9 %; PLT - PLATELET COUNT 125 10^3/uL (130-450); RED BLOOD COUNT 4.04 10^6/uL (4.70-6.10); RED CELL DISTRIBUTION WIDTH 11.9 % (12.0-15.0); WHITE BLOOD COUNT 5.8 x10^3/uL (4.8-10.8)
[2021-01-01 05:23] LABS: ALBUMIN 3.6 g/dL (3.2-5.5); ALBUMIN/GLOBULIN RATIO 1.1 (1.0-2.2); BILIRUBIN,TOTAL 0.9 mg/dL (0.2-1.0); CALCIUM 8.6 mg/dL (8.5-10.3); POTASSIUM 3.6 mmol/L (3.5-5.0)
[2021-01-01] MEDS: methocarbamoL 500 MG TABLET PO SCH ×2 (05:58→11:53)
[2021-01-01] MEDS: GABAPENTIN 300 MG CAPSULE PO SCH ×2 (05:58→13:23)
[2021-01-01] MEDS: PANTOPRAZOLE 40 MG VIAL IVP SCH (05:58)
[2021-01-01] MEDS: LEVOTHYROXINE 100 MCG TABLET PO SCH (05:58)
[2021-01-01] MEDS: METOCLOPRAMIDE 10 MG/2 ML VIAL IVP SCH ×2 (05:58→11:53)
[2021-01-01] MEDS: SODIUM CHLORIDE FLUSH 0.9% 10 ML SYRINGE IVP PRN ×2 (06:01→13:24)
[2021-01-01] MEDS: ENOXAPARIN 40 MG/0.4 ML SYRINGE SUBQ SCH (09:29)
[2021-01-01] MEDS: LOSARTAN 50 MG TABLET PO SCH (09:29)
[2021-01-01] MEDS ORDERED: ACETAMINOPHEN 325 MG TABLET PO PRN (10:56)
--- NOTE | 2021-01-01 13:05 | Discharge Plan ---
Discharge Plan Problem Reviewed?: Yes Disposition: Home, Self Care Condition: Good Diet: Soft Activity Restrictions: No Restrictions Shower Restrictions: No Driving Restrictions: No Plan of Treatment: slowly return to a normal diet as tolerated. Soft diet recommended for a few more days Assessment: doing well after small intestine inflammation/ enteritis Additional Instructions or Follow Up instructions: call the surgery office for follow up as needed [phone] No Smoking: If you smoke, Please STOP! Call for help. Follow-up with: Jerod Canales MD [Primary Care Provider] -
--- NOTE | 2021-01-01 13:07 | DISCHARGE SUMMARY ---
"Discharge Summary Admit Date: 12/29/20 Discharge Date: 01/01/21 Discharging Provider: shannen basurto Code Status: Attempt Resuscitation Discharge Facility Name: [facility] - DIAGNOSES Admission Diagnoses: small bowel obstruction Discharge Diagnoses with Status of Each Condition: enteritis. home in good condition with normal abdominal exam and tolerating diet - HPI History of Present Illness: Present with abdominal pain and ct scan concerning for abdominal pain. Quickly improved and course more consistent with enteritis. - CONSULTS | PROCEDURES Procedures: iv fluids, pain management - HOSPITAL COURSE Hospital Course: as above. ileus and abdominal pain quickly improved. - ALLERGIES Allergies/Adverse Reactions: Allergies Allergy/AdvReac Type Severity Reaction Status Date / Time No Known Drug Allergies Allergy Verified 10/16/20 09:44 - MEDICATIONS Home Medications: Ambulatory Orders Medication Instructions Recorded Confirmed Aspirin Chewable [[place] 81 mg PO DAILY #30 tablet 02/17/19 12/29/20 Aspirin] Atorvastatin Calcium 20 mg PO QPM 03/27/20 12/29/20 Levothyroxine [Synthroid] 200 mcg PO QDAC tablet 03/30/20 12/29/20 Losartan [Cozaar] 50 mg PO DAILY tablet 03/30/20 12/29/20 Lidocaine/Prilocain 2.5% Cream 30 gm TOP DAILY PRN #1 tube 04/17/20 12/29/20 [Emla 2.5% Cream] OLANZapine [Olanzapine] 5 mg PO UD #24 tablet 04/17/20 12/29/20 ondansetron HCL [Zofran] 8 mg PO BID PRN #30 tablet 04/17/20 12/29/20 Potassium Chloride [Klor-Con M20] 20 meq PO TID 05/09/20 12/29/20 Loperamide HCl [Imodium A-D] 2 mg PO Q6HR PRN 07/31/20 12/29/20 Gabapentin [Neurontin] 300 mg PO TID 12/04/20 12/29/20 - PHYSICAL EXAM AT DISCHARGE General Appearance: positive: No acute distress, Alert ENT: positive: No signs of dehydration Neck: positive: No JVD Respiratory: positive: No respiratory distress Abdomen: positive: Non-tender, No distention Neurologic/Psychiatric: positive: Oriented x3 - LABS Result Diagrams: 01/01/21 04:55 01/01/21 04:55 - FOLLOW UP Follow Up: surgery as needed. please call to make an appointment as needed [phone]"
[2021-01-01 13:16] VITALS: BP 162/94
== END 2021-01-01 13:53 | disposition home or self-care (01) | DRG 392 ==
LOC: ED 01:20 → MS3 05:54 → OBSVTOIN 12-31 08:06
PROVIDERS: ADMIT Surgery; ATTEND Surgery
DX: K52.9 Noninfective gastroenteritis and colitis, unspecified (principal); K56.600 Partial intestinal obstruction, unspecified as to cause; C19 Malignant neoplasm of rectosigmoid junction; I10 Essential (primary) hypertension; R59.0 Localized enlarged lymph nodes; E03.9 Hypothyroidism, unspecified; Z20.822 Contact with and (suspected) exposure to COVID-19; R35.0 Frequency of micturition; Z87.891 Personal history of nicotine dependence; Z90.49 Acquired absence of other specified parts of digestive tract; Z98.0 Intestinal bypass and anastomosis status; Z92.21 Personal history of antineoplastic chemotherapy
CPT/HCPCS: 36415; 74177; 80053; 81001; 83690; 85025; 85027; 87631; 96365; 96366; 96367; 96372; 96375; 96376; 99284; 99285; A9270; G0378; J1170; J1650; J2765; J7120; Q9967; 0202U; 81003; 87086

== ENCOUNTER 2021-02-05 15:36 | Outpatient (CLI) | payer MEDICARE ==
[~2021-02-05 15:36] MED LIST changes: +IOPAMIDOL-300 50 ML VIAL ONE; +IOVERSOL 320 100 ML VIAL IVP ONE; -LIDOCAINE 1% 50 ML MDV ONE
[2021-02-05] MEDS ORDERED: IOVERSOL 320 100 ML VIAL IVP ONE (16:30)
[2021-02-05] MEDS ORDERED: IOPAMIDOL-300 50 ML VIAL PO ONE (16:30)
--- NOTE | 2021-02-05 16:57 | CT Report ---
PROCEDURE: Abdomen/Pelvis W INDICATIONS: LEFT LOWER AND UPPER QUAD PAIN CONTRAST: IV CONTRAST: Optiray 320 ml: 100 PO CONTRAST: Isovue 300 ml50 TECHNIQUE: After the administration of IV and oral contrast, 5 mm thick sections acquired from the diaphragms to the symphysis. 5 mm thick coronal and sagittal reformats were acquired. For radiation dose reducti on, the following was used: automated exposure control, adjustment of mA and/or kV according to arelis ent size. COMPARISON: December 29, 2020 FINDINGS: Image quality: Excellent. ABDOMEN: Lung bases: Lung bases are clear. Heart size is normal. Tiny pericardial effusion measures less th an 1 cm. Bibasilar pulmonary scarring noted. Solid organs: Liver and spleen are normal in size and enhancement. Gallbladder unremarkable Biliar y system is non dilated. Pancreas enhances normally. No adrenal nodules. Kidneys demonstrate evaristo l size and enhancement, without hydronephrosis. 1.7 cm right renal cortical simple cyst noted. Peritoneum and bowel: There is gaseous distention of the mid small bowel measuring up to 4 cm. The wa ll thickening has resolved compared to the prior exam. No mesenteric edema. Enteric contrast is prese nt in the distal small bowel. There is irregular wall thickening with suggestion of heaped up mucosa in the mid sigmoid colon over a 4.4 cm long segment. No inflammatory change. Normal appendix identifi ed. Nodes and vessels: No retroperitoneal or mesenteric adenopathy by size criteria. Aorta and inferior vena cava are normal in size. Miscellaneous: No ventral hernias. PELVIS: Genitourinary: Bladder wall thickness is normal. Miscellaneous: No inguinal hernias or adenopathy. Bones: No suspicious bony lesions. No vertebral body compression fractures. IMPRESSION: IMPRESSION: 1. Gaseous distention of the mid small bowel without wall thickening or inflammatory change may refle ct mild ileus or enteritis. 2. Incidental localized irregular wall thickening in the mid sigmoid colon is noted. While this may r eflect peristalsis and nondistention, focal neoplasm would be a close differential. Consider direct v isualization. 3. Small pericardial effusion measures less than 1 cm. Reviewed by: Rhaul Rico MD on 02/05/2021 3:56 PM CARMEN Approved by: Rahul Rico MD on 02/05/2021 3:56 PM AKDT Station ID: [id number]
== END 2021-02-05 15:37 | disposition home or self-care (01) ==
LOC: DI 15:36
PROVIDERS: ATTEND Physician Assistant
DX: C18.7 Malignant neoplasm of sigmoid colon (principal); Z85.9 Personal history of malignant neoplasm, unspecified; R10.32 Left lower quadrant pain; R10.12 Left upper quadrant pain; R14.0 Abdominal distension (gaseous)
CPT/HCPCS: 74177; Q9967

== ENCOUNTER 2021-03-10 06:05 | Day surgery (SDC) | payer MEDICARE ==
[2021-03-10] MEDS ORDERED: LACTATED RINGERS 1,000 ML IV ONE ×2 (06:16→08:09)
[2021-03-10] MEDS ORDERED: fentaNYL 250 MCG/5 ML VIAL ONE (07:22)
[2021-03-10] MEDS ORDERED: MIDAZOLAM 2 MG/2 ML VIAL ONE ×2 (07:22→07:31)
[2021-03-10 08:56] VITALS: BP 110/78
== END 2021-03-10 06:06 | disposition home or self-care (01) ==
LOC: SDS 06:05
PROVIDERS: ATTEND Surgery
PROC: 0DBL8ZX Excision of Transverse Colon, Via Natural or Artificial Opening Endoscopic, Diagnostic (ICD-10-PCS; 2021-03-10)
PROC: 0DBN8ZX Excision of Sigmoid Colon, Via Natural or Artificial Opening Endoscopic, Diagnostic (ICD-10-PCS; 2021-03-10)
PROC: 0DBH8ZX Excision of Cecum, Via Natural or Artificial Opening Endoscopic, Diagnostic (ICD-10-PCS; principal; 2021-03-10 07:30)
DX: C18.7 Malignant neoplasm of sigmoid colon (principal); D12.3 Benign neoplasm of transverse colon; Z87.891 Personal history of nicotine dependence
CPT/HCPCS: 45380; J3010; J7120

== ENCOUNTER 2021-03-13 15:30 | Outpatient (CLI) | payer MEDICARE ==
[2021-03-13] MEDS ORDERED: IOPAMIDOL-300 50 ML VIAL ONE (15:37)
[2021-03-13] MEDS ORDERED: IOVERSOL 320 100 ML VIAL IVP ONE ×2 (15:37→21:12)
[2021-03-13] MEDS ORDERED: IOPAMIDOL-300 50 ML VIAL PO ONE (21:12)
--- NOTE | 2021-03-14 09:46 | CT Report ---
PROCEDURE: SOFT TISSUE NECK W INDICATIONS: COLON CA CONTRAST: IV CONTRAST: Optiray 320 ml: 100 PO CONTRAST: *NO PO CONTRAST TECHNIQUE: After the administration of intravenous contrast, 3.0 mm axial sections acquired from the sella to th e aortic arch. Additional oblique axial 3.0 mm sections acquired through the pharynx. 3 mm thick co willam reformats were generated. For radiation dose reduction, the following was used: automated exp osure control, adjustment of mA and/or kV according to patient size. COMPARISON: None. FINDINGS: Image quality: Excellent. Lymph nodes: There is mild lymphadenopathy in the left neck base and the left upper mediastinum at th e level of thoracic inlet. For example, a pathologic-appearing and borderline threshold enlarged lymp h node measuring 1 7 m short axis diameter is seen adjacent to the left common carotid artery on seri es 2 image 125. There are additional prevascular upper mediastinal lymph nodes which are suspicious i n appearance. There is also lymphadenopathy in the left AP window and precarinal stations. Vessels: Visualized vasculature appears patent. Neck spaces: The oropharynx, nasopharynx, and pharynx demonstrate no mucosal lesions. The vocal cor ds, false vocal cords, pyriform sinuses, epiglottis, vallecula, and tongue base all appear normal. E xtramucosal spaces appear unremarkable. Glands: The parotid and submandibular glands appear normal. The thyroid is normal in size and there are no incidental findings. Miscellaneous: Visualized brain and orbits appear normal. Lung apices appear clear. Superficial so ft tissues appear normal. Bones: No suspicious bony lesions. Visualized sinuses and mastoids appear unremarkable. IMPRESSION: Left neck base and upper mediastinal lymphadenopathy consistent with metastatic disease. Additional mediastinal lymphadenopathy described separately in CT chest report. Reviewed by: Andrez Woodard MD on 03/14/2021 9:45 AM PDT Approved by: Andrez Woodard MD on 03/14/2021 9:45 AM PDT Station ID: [id number]
--- NOTE | 2021-03-14 13:04 | CT Report ---
PROCEDURE: CHEST W INDICATIONS: COLON CA CONTRAST: IV CONTRAST: Optiray 320 ml: 100 PO CONTRAST: Isovue 300 ml50 TECHNIQUE: After the administration of intravenous contrast, 5 mm thick sections acquired from the pulmonary api uday to the posterior costophrenic angles. 7 mm thick coronal MIP reformats were acquired. For radia tion dose reduction, the following was used: automated exposure control, adjustment of mA and/or kV according to patient size. COMPARISON: Same day CT abdomen and pelvis, 01/3003/02/2021. CT chest 10/09/2020. FINDINGS: Image quality: Excellent. Lungs and pleura: Mild dependent atelectasis or scarring. Calcified granuloma. No pleural effusions o r pneumothorax. Central and peripheral airways are patent and normal in caliber. Mediastinum: Left-sided port with the catheter tip in the lower third of the SVC. Heart size is norm al. Small pericardial effusion, unchanged. Prevascular node measuring 1.3 cm, (11/03), previously 0.6 cm. Right hilar node measuring 1.4 cm, (11/08), previously 0.9 cm. Additional shotty appearing mediast inal lymph nodes. Thoracic aorta and central pulmonary arteries are normal in size. Esophagus is nor mal in caliber. Question of small hiatal hernia. Bones and chest wall: No suspicious bony lesions. No vertebral body compression fractures. No axil [place] or supraclavicular adenopathy by size criteria. Visualized thyroid appears atrophic. Abdomen: Please see separately dictated CT abdomen and pelvis. IMPRESSION: 1. Indeterminate mildly enlarged mediastinal and right hilar lymph nodes, increased compared to 2020. 2. Similar small pericardial effusion. 3. No significant pulmonary nodules or mass. Reviewed by: Kang Brewer MD on 03/14/2021 1:02 PM PDT Approved by: Kang Brewer MD on 03/14/2021 1:02 PM PDT Station ID: [id number]
--- NOTE | 2021-03-14 16:05 | CT Report ---
PROCEDURE: Abdomen/Pelvis W INDICATIONS: COLON CA CONTRAST: IV CONTRAST: Optiray 320 ml: 100 PO CONTRAST: Isovue 300 ml50 TECHNIQUE: After the administration of intravenous and oral contrast, 5 mm thick sections acquired from the diap hragms to the symphysis. 5 mm thick coronal and sagittal reformats were acquired. For radiation dos e reduction, the following was used: automated exposure control, adjustment of mA and/or kV accordin g to patient size. COMPARISON: CT abdomen and pelvis with contrast, 02/05/2021. FINDINGS: Image quality: Excellent. ABDOMEN: Lung bases: Bibasilar discoid atelectasis. Heart size is mildly increased. Small pericardial effusio n is present. Solid organs: Liver and spleen are normal in size and enhancement. Gallbladder is normal. Biliary system is non dilated. Pancreas enhances normally. There is a right adrenal nodule measuring 1.3 x 2 .2 cm, suspicious for metastasis. Kidneys demonstrate normal size and enhancement, without hydroneph rosis. There is a low-density cortical nodule in the right kidney, most likely a cyst. Peritoneum and bowel: There is focal thickening involving the proximal sigmoid colon. Small bowel loo ps demonstrate normal wall thickness and caliber. No free fluid or air. Nodes and vessels: There is a 1 cm left para-aortic lymph node behind the left renal vein. Mildly en larged mesenteric lymph nodes are seen in the left abdomen measuring up to 1 cm in short axis. Aorta and inferior vena cava are normal in size. Mild atherosclerotic calcification. Miscellaneous: No ventral hernias. PELVIS: Genitourinary: Bladder wall thickness is normal. Miscellaneous: No inguinal hernias or adenopathy. Bones: No suspicious bony lesions. No vertebral body compression fractures. IMPRESSION: 1. Focal colonic thickening of the proximal sigmoid colon consistent with known colon cancer. 2. Mildly enlarged retroperitoneal and mesenteric nodes. Differential diagnoses include metastatic di sease versus reactive lymph nodes. 3. Small pericardial effusion. Reviewed by: Edgar Shirley MD on 03/14/2021 4:04 PM PDT Approved by: Edgar Shirley MD on 03/14/2021 4:04 PM PDT Station ID: [id number]
== END 2021-03-13 15:31 | disposition home or self-care (01) ==
LOC: DI 15:30
PROVIDERS: ATTEND Internal Medicine
DX: C18.7 Malignant neoplasm of sigmoid colon (principal); R59.0 Localized enlarged lymph nodes; I31.3 Pericardial effusion (noninflammatory)
CPT/HCPCS: 70491; 71260; 74177; Q9967

== ENCOUNTER 2021-05-14 09:15 | Outpatient (CLI) | payer MEDICARE ==
--- NOTE | 2021-05-14 17:19 | CONSULTATION NOTE ---
Palliative Care Follow Up - Referral Referring Provider: Dr. Raji Hernandez Time of Visit: 0900 60 min Ref[place] setting[place] [facility] [place] Reason: Pain of neoplastic origin/Constipation/Recurrent Colon CA with joby mets - Information Sources Records reviewed: Previous records reviewed History/Review of Systems obtained from: Patient, Family ( Shellie present) Exam limitations: Language barrier (patient and with tristanian as second language; need writtent inst. and review) - History of Present Illness Update Brief HPI Update: This is a cezar 65-year-old Sudanese gentleman, whom I followed alongside his first round of chemotherapy for: Stage IIIb, he completed cycle 12 of FOLFOX on 09/25/2020. Unfortunately on repeat colonoscopy 03/10/2020 when there was a small focus of recurrence of colon cancer at the sigmoid colon and restaging CT showed nonspecific mildly enlarged lymph nodes of the mediastinum and chest and base of neck. He then received a restaging PET/CTs 03/28/2021 with hypermetabolic sigmoid colon consistent with malignant neoplasm in addition to his mediastinal, right hilar adenopathy, right adrenal mass, and lower C-spine and upper thoracic spine bony mets. Patient presents with fairly severe pain, reports 8 out of 10. Had been using hydrocodone 10/325 mg 1 every 6 hours with only moderate relief. Oncology gave him prescription for 5 mg oxycodone, patient did not find this is effective, and defaulted back to the hydrocodone 10 mg / 325 mg tabs. His pain is mostly located in his upper and lower thoracic spine, radiating through his left arm with sharp shooting pains. He reports this is different than his previous left shoulder discomfort. Patient has had some weight loss, is using supplemental shakes. He is sleeping quite a bit. Now he is not had a bowel movement for several days, and reports constipation. Patient and are appropriately distressed at having the "minesh motherapy not work". They do understand this is not curable at this point in time. Patient does also have some decline in functional status, but is ambulatory and managing his ADLs. Past Medical History: Retinitis pigmentosa, hypertension, hypothyroidism with history of goiter, kidney stones, chronic hearing loss, anxiety, hyperlipidemia Social History - Living Situation Living arrangement: At home Living Situation: With spouse/s.o., With family Support System: Patient lives in the lower level of his sister's house, with his who has returned back to work. She works the evening/night worker. There are multiple financial and social stressors, patient is on disability for his retinitis pigmentosa. His [id number] is there during the day and can provide assistance if needed. There is still 1 son living there with his 2 children. Medications/Allergies - Medications Home Medications: Ambulatory Orders Medication Instructions Recorded Confirmed Atorvastatin Calcium 20 mg PO QPM 03/27/20 05/16/21 Losartan [Cozaar] 50 mg PO DAILY tablet 03/30/20 05/16/21 Lidocaine/Prilocain 2.5% Cream 30 gm TOP DAILY PRN #1 tube 04/17/20 05/16/21 [Emla 2.5% Cream] Levothyroxine [Synthroid] 175 mcg PO QDAC 05/16/21 05/16/21 Loperamide [Imodium] 2 - 4 mg PO Q4HR PRN MDD 8 tabs 05/16/21 05/16/21 OLANZapine [Olanzapine] 5 mg PO .1-4 DAY WITH CHEMO 05/16/21 05/16/21 Ondansetron [Zuplenz] 4 mg PO Q6HR PRN 05/16/21 05/16/21 Senna [Senokot] 1 - 2 tab PO BID PRN 05/16/21 05/16/21 dexAMETHasone [Decadron] 2 mg PO DAILY 05/16/21 05/16/21 oxyCODONE [Roxicodone] 5 - 10 mg PO Q4H PRN 05/16/21 05/16/21 - Allergies Allergies/Adverse Reactions: Allergies Allergy/AdvReac Type Severity Reaction Status Date / Time No Known Drug Allergies Allergy Verified 04/16/21 09:50 Review of Systems - Constitutional Constitutional: reports: Fatigue, Weakness, Poor appetite, Weight loss. denies: Fever, Chills - Eyes Eyes: reports: Blurred vision (left eye; planning on cataract surgery after chemo), Vision loss - Cardiovascular Cardiovascular: reports: Decr. exercise tolerance. denies: Edema - Respiratory Respiratory: denies: SOB at rest - Gastrointestinal Gastrointestinal: reports: Constipation, Bloating, Early satiety. denies: Reflux/heartburn - Musculoskeletal Musculoskeletal: reports: Stiffness, Limited range of motion (right arm), Muscle weakness - Integumentary Integumentary: reports: Dryness - Neurological Neurological: reports: General weakness - Psychiatric Psychiatric: reports: Anxiety - All Other Systems All Other Systems: reports: Reviewed and negative Physical Exam - Vital Signs Temperature: 36.8 C Pulse Rate: 62 Respiratory Rate: 18 Blood Pressure: 135/83 - Physical Exam General Appearance: positive: Alert, Moderate distress (worsening pain right arm/shoulder/ back), Anxious Eyes Bilateral: positive: Normal inspection ENT: positive: No signs of dehydration Neck: positive: Trachea midline Cardiovascular: positive: Regular rate & rhythm Respiratory: positive: No respiratory distress, Breath sounds nml Abdomen: positive: Non-tender, Soft, Nml bowel sounds Skin: positive: Dryness Extremities: positive: No pedal edema Neurologic/Psychiatric: positive: Oriented x3, Mood/affect nml, Weakness, Flat affect Palliative Care - POLST Patient has POLST: No POLST Status: Full Code Pain: Pain worsening, Location (see HPI), Severity (8/10) Tiredness/Fatigue: Severe (7-10) Drowsiness/Sedation: Moderate (4-6), Comment (sleeping most of the time) Nausea: None Anorexia: Moderate (4-6), Weight loss Dyspnea: None Depression: Mild (1-3) Anxiety: Moderate (4-6) Constipation: Yes, Opoid induced, Unmanaged Performance Status: Patient is ambulatory, is limited more with his pain and fatigue. reports he is sleeping quite a bit. Patient is able to manage his ADLs at home, less able to help with household tasks. - Palliative Care Discussion: Patient and do not understand why chemotherapy did not work, they are very disappointed. They do understand that this is very serious. would like to take time off for FMLA, but unclear long-term prognosis and very anxious about what this all means. Patient currently more anxious about his ongoing pain, palliative care with previous relationship to patient and , relieved to have some support though symptom management will continue to be complicated given language barrier and health literacy. Results - Lab Results Lab results reviewed: Yes Impression and Recommendations - Palliative Care Impression: This is a 65-year-old gentleman unfortunately with stage IV colon cancer/recurre nt with bony mets. Patient presents with uncontrolled pain, as well as initiating new treatment second line with FOLFIRI plus Avastin. Patient and quite overwhelmed with patient's symptoms and seriousness of his illness. Palliative care to provide support for pain and symptom management, anticipatory guidance, and psychosocial support Recommendations/Counseling Done: 1. Pain of neoplastic origin. Does appear mostly attributed to his bony mets, will initiate small dose dexamethasone 2 mg to see if patient tolerates. Can increase if without side effects. Patient most likely would benefit from radiation, will continue to consult with oncology regarding timing. Patient perceives the hydrocodone 10 mg / 325 mg as more effective, suspected is the oxycodone 5 mg tabs will increase to 10 mg, concern regarding escalating pain and combination medication. Patient instructed to take 2 tabs every 4 hours as needed and track total number, will transition over to long-acting medication when baseline established. 2. Constipation secondary to opioid use. Patient not using any bowel program, instructed to get senna, wanting to keep it simple. We will go ahead and initiate senna 1-2 tabs twice a day, though they are very nervous expecting pending diarrhea from treatment. Written instructions to start as soon as diarrhea resolves most likely when 3 or 4 days after treatment. 3. Recurrent stage IV colon adenocarcinoma with bony mets. Patient starting FOLFIRI plus Avastin today. Has olanzapine, will go ahead and reorder, instructions written for day 1 through 4, ordered ondansetron 4 mg every 6 hours for breakthrough nausea. Also reviewed Imodium, they had not picked up yet. Written instructions provided for all medications and reviewed with teach back. 4. Anxiety. Patient underlying has persistent anxiety, this is been exacerbated by his current situation. Patient may benefit from initiation of sertraline, will wait until pain regimen stabilized. 5. Advanced care planning. wanting to take FMLA, they do have significant financial stressors. She will bring in paperwork, she does understand the seriousness of his illness, and this is not curative in nature. This is quite frightening to both of them. We will continue to work gently on goals of care and advance care planning. Disability parking permit provided today. 60 minutes review of scans, labs, oncology notes, [id number] with patient, counseling regarding pain and symptom management, anticipatory guidance, and coordination with oncology team
== END 2021-05-14 09:16 | disposition home or self-care (01) ==
LOC: PC 09:15
PROVIDERS: ATTEND Nurse Practitioner Adult Health
DX: Z51.5 Encounter for palliative care (principal); G89.3 Neoplasm related pain (acute) (chronic); C18.9 Malignant neoplasm of colon, unspecified; C79.51 Secondary malignant neoplasm of bone; K59.00 Constipation, unspecified; K59.03 Drug induced constipation; T40.2X5A Adverse effect of other opioids, initial encounter; F41.9 Anxiety disorder, unspecified; H91.90 Unspecified hearing loss, unspecified ear
CPT/HCPCS: 99215

== ENCOUNTER 2021-05-28 08:18 | Outpatient (CLI) | payer MEDICARE ==
--- NOTE | 2021-05-28 12:23 | CONSULTATION NOTE ---
Palliative Care Follow Up - Referral Referring Provider: Dr. Raji Hernandez Time of Visit: 0815 45 minutes Referral setting: [facility] [place] Referral Reason: Pain of neoplastic origin/Constipation/Recurrent Colon CA with joby mets - Information Sources Records reviewed: Previous records reviewed History/Review of Systems obtained from: Patient, Family ( Shellie present) Exam limitations: Language barrier - History of Present Illness Update Brief HPI Update: This is a cezar 65-year-old Tongan gentleman, who was diagnosed with recurrent colon cancer at the sigmoid colon, with mildly enlarged lymph nodes in the mediastinum and chest and base of neck. He received a restaging PET/CT scan 03/1620 with hypermetabolic sigmoid colon consistent with malignant neoplasm in addition to his mediastinal, right hilar adenopathy, right adrenal mass, and lower C-spine and upper thoracic spine bony mets. I had followed patient for initial diagnosis for Stage IIIb colon cancer, Treated with a sigmoid hemicolectomy and fortunately had positive margins, as well as 12 cycles of FOLFOX which she completed on 09/25/2020. Patient had presented with significantly limited range of motion in his right shoulder arm related to his pain in his upper cervical area and mid thoracic back. Was started on oxycodone 5 mg 2 tabs, every 4-6 hours, as well as dexamethasone 2 mg in a.m. Patient reports pain is continue to improve, range of motion in right shoulder and arm no longer limited. He still has localized pain in upper thoracic area, but is tolerable and manageable with only oxycodone 2 tabs=10 mg 2-3 times a day. Currently he is taking it in response to as needed, will defer at this time long-acting pain medication as it has improved. His CEA has decreased as well from 39.8-16.3. Patient may still be appropriate for radiation, but will reevaluate with oncology in 2 weeks. Patient's constipation is improved, did get some mixup and had started the Senokot with his chemo, unfortunately had diarrhea which was distressing for him. He did take some Imodium, on the third day, he is sleeping better as pain is improved, and is eating better with a couple pound weight gain up to 158.2. Patient reports he still gets quite cold easily, has cold hands and continued persistent numbness in his feet this is a residual from his last treatments. Past Medical History: Retinitis pigmentosa, hypertension, hypothyroidism with history of goiter and ablation, kidney stones, chronic hearing loss, anxiety, hyperlipidemia Social History - Living Situation Living arrangement: At home Living Situation: With spouse/s.o. Support System: Patient lives in a multi family household, and the lower level of his sister's house. His has returned back to work though she is wanting to take some M for MLA. She is quite tearful and worried about his impending decline. She works the evening/curriculum coach, but is feeling better about leaving for work as his pain is better. There are multiple financial and social stressors, patient is on disability for his redness pigmentosa. His [id number] is there during the day, his nephew provides some assistance as far as translation and works at a pharmacy. There is still one son living there with his 2 children. Medications/Allergies - Medications Home Medications: Ambulatory Orders Medication Instructions Recorded Confirmed Atorvastatin Calcium 20 mg PO QPM 03/27/20 05/16/21 Losartan [Cozaar] 50 mg PO DAILY tablet 03/30/20 05/16/21 Lidocaine/Prilocain 2.5% Cream 30 gm TOP DAILY PRN #1 tube 04/17/20 05/16/21 [Emla 2.5% Cream] Levothyroxine [Synthroid] 175 mcg PO QDAC 05/16/21 05/16/21 Loperamide [Imodium] 2 - 4 mg PO Q4HR PRN MDD 8 tabs 05/16/21 05/16/21 OLANZapine [Olanzapine] 5 mg PO .1-4 DAY WITH CHEMO 05/16/21 05/16/21 Ondansetron [Zuplenz] 4 mg PO Q6HR PRN 05/16/21 05/16/21 Senna [Senokot] 1 - 2 tab PO BID PRN 05/16/21 05/16/21 dexAMETHasone [Decadron] 2 mg PO DAILY 05/16/21 05/16/21 oxyCODONE [Roxicodone] 5 - 10 mg PO Q4H PRN 05/16/21 05/16/21 - Allergies Allergies/Adverse Reactions: Allergies Allergy/AdvReac Type Severity Reaction Status Date / Time No Known Drug Allergies Allergy Verified 04/16/21 09:50 Review of Systems - Constitutional Constitutional: reports: Fatigue (158.2), Weight stable - Eyes Eyes: reports: Blurred vision (left eye; planning on cataract surgery after chemo), Vision loss - Ears, Nose & Throat Ears, Nose & Throat: denies: Mouth lesions - Cardiovascular Cardiovascular: reports: Lightheadedness (noted sometimes with "pills"), Decr. exercise tolerance. denies: Edema - Respiratory Respiratory: denies: SOB at rest - Gastrointestinal Gastrointestinal: reports: Constipation (improved), Diarrhea (with chemotherapy; resolved), Good appetite - Musculoskeletal Musculoskeletal: reports: Stiffness, Joint pain - Integumentary Integumentary: reports: Dryness - Neurological Neurological: reports: General weakness, Numbness (residual in hand and feet; affects balance) - Psychiatric Psychiatric: reports: Anxiety (regarding dx) - Endocrine Endocrine: reports: Intolerance to cold (worsening) - Hematologic/Lymphatic Hematologic/Lymph: reports: Anemia (12.2) - All Other Systems All Other Systems: reports: Reviewed and negative Physical Exam - Vital Signs Temperature: 97.2 C Pulse Rate: 60 Respiratory Rate: 18 O2 Saturation: 97 Blood Pressure: 142/79 - Physical Exam General Appearance: positive: No acute distress, Alert Eyes Bilateral: positive: Normal inspection ENT: positive: No signs of dehydration Neck: positive: Trachea midline Cardiovascular: positive: Regular rate & rhythm Respiratory: positive: No respiratory distress, Breath sounds nml. negative: Wheezes, Rales Abdomen: positive: Non-tender, Soft Skin: positive: Dryness Neurologic/Psychiatric: positive: Oriented x3, Mood/affect nml, Flat affect Palliative Care - POLST Patient has POLST: No Pain: Pain improved, Location (mid thoracic area 7/10 at worst/ 2/10 at visit) Tiredness/Fatigue: Moderate (4-6) Drowsiness/Sedation: Mild (1-3) Nausea: None Anorexia: Mild (1-3) Dyspnea: None Depression: Mild (1-3) Anxiety: Moderate (4-6) Feelings of wellbeing/Perceived Quality of Life: Good, Acceptable, No change Sleep: Sleep improved Constipation: Yes, Opoid induced, Intermittent constipation Performance Status: Patient has been very sensitive to cold, has not been outside walking. He reports he does walk around his house, is managing his ADLs. - Palliative Care Discussion: Patient and very tender, she is very tearful she reports she just watches some sleep and is so worried about his dying. We discussed hoping for the best both for time and quality of life. He reports he is not ready to until he s tops eating, and he is still eating and drinking so he finds still quality of life in this. He and she are both doing better with his pain better controlled. Acknowledged feelings of vulnerability and concern, reviewed it is a good sign his pain is better and his labs are improved. She is somewhat confused about FMLA, was unable to get assistance from her human resources. Did provide form and filled out provider information.She does have a nephew and son helped her last time, she does believe she has some when she can have a sister or she can take it to HR now that she has a completed paperwork Results - Lab Results Lab results reviewed: Yes Impression and Recommendations - Palliative Care Impression: This is a cezar 65-year-old gentleman with recurrent stage IV colon cancer with bony mets and lymphadenopathy. Patient with improved pain management, did have some diarrhea but manageable side effects with his new treatment FOLFIRI plus Avastin. Patient and continue to be overwhelmed, but are feeling less stress but concerned about the seriousness of his illness. Palliative care to provide support for pain and symptom management, anticipatory guidance and psychosocial support Recommendations/Counseling Done: 1. Pain of neoplastic origin. Patient does appear to be mostly attributed to his bony mets, patient did tolerate dexamethasone 2 mg has helped with appetite and most likely impacted pain. Will hold off on increasing, as patient's pain has improved. Patient has been using 10 mg of oxycodone, with good response. He does perceive some dizziness unclear if this is related to his medication side effects or not. With improved pain management, did review could try back to 1 5 mg tablet, had found it not as effective. Did introduce possibly looking at radiation, but will wait till Dr. Hernandez is back and another treatment cycle as does appear to improve. Patient may be appropriate for time-released morphine 15 mg twice daily, if persistent pain, if continues to improve most likely safer in the context of social situation to use short acting medication. 2. Constipation. Secondary to opioid use. Patient does have Senokot, reviewed again to start after diarrhea of chemotherapy stops. Patient was having hard and irregular bowel movements last few days. He unfortunately did take the Senokot with the chemotherapy, but had not had a bowel movement for several days at that point. Hopefully patient will balance Imodium and Senokot appropriately, reviewed instructions again both with and patient. Able to verbalize back plan of care. 3. Recurrent stage IV colon adenocarcinoma with bony mets. Patient completed his first FOLFIRI plus Avastin, does have antiemetics in the home, did not feel like he needed it. He was mostly severely fatigued, and then with the persistent diarrhea at the third day. We will continue to monitor. 4. Anxiety. Patient continues with persistent anxiety, though he does appear to be doing well today. Patient may benefit from initiation of sertraline, but will wait until pain regimen stabilized. Also concerned regarding polypharmacy. I suspect the dexamethasone has brightened his mood, will continue for now. 5. Advanced care planning. Did provide FMLA downloaded information from the state site, and provider component filled out. They both understand the seriousness of his illness, and are expressing appropriate grief and loss and anticipation of his decline in the future. This is quite frightening to both of them. We will continue to work gently on goals of care and advanced care planning. 45 minutes with review of oncology notes, labs, coordination of care with oncology team, [id number] for pain and symptom management, counseling for pain and constipation as well as psychosocial support and adjustment illness
== END 2021-05-28 08:19 | disposition home or self-care (01) ==
LOC: PC 08:18
PROVIDERS: ATTEND Nurse Practitioner Adult Health
DX: Z51.5 Encounter for palliative care (principal); G89.3 Neoplasm related pain (acute) (chronic); M54.2 Cervicalgia; M54.6 Pain in thoracic spine; C18.7 Malignant neoplasm of sigmoid colon; R59.1 Generalized enlarged lymph nodes; C79.51 Secondary malignant neoplasm of bone; K59.03 Drug induced constipation; T40.2X5A Adverse effect of other opioids, initial encounter; F41.9 Anxiety disorder, unspecified; Z79.899 Other long term (current) drug therapy
CPT/HCPCS: 99215

== ENCOUNTER 2021-06-11 08:57 | Outpatient (CLI) | payer MEDICARE ==
--- NOTE | 2021-06-11 13:06 | CONSULTATION NOTE ---
Palliative Care Follow Up - Referral Referring Provider: Dr. Raji Hernandez Time of Visit: [id number] Referral setting: [facility] Referral Reason: Pain of neoplastic origin/Recurrent colon CA with joby mets - Information Sources Records reviewed: Previous records reviewed History/Review of Systems obtained from: Patient, Family (spoouse, Shellie) Exam limitations: Language barrier - History of Present Illness Update Brief HPI Update: This is a cezar 65-year-old [place] gentleman who was diagnosed with recurrent colon cancer at the sigmoid colon with mildly enlarged lymph nodes in the mediastinum and chest and base of neck. He has had recurrence with original diagnosis stage IIIb colon cancer that was treated with sigmoid hemicolectomy and had positive margins as well as 12 cycles of FOLFOX which was completed on 09/25/2020. Asked to see patient in in follow-up today as primary palliative care ALGOLOGY TEACHERCan little for follow-up regarding pain of neoplastic origin. Patient was started on FOLFIRI plus Avastin on 05/14/2021. Today he begins his third cycle of chemotherapy. He is tolerating the treatment and quite well with minimal symptom burden including nausea and vomiting. Typically had noted some diarrhea with the initial treatment but at this has subsequently improved. Enforced today the need to have a daily, soft bowel movement especially in light of taking oxycodone. Since beginning chemotherapy for this cycle the patient has noticed a reduction in his general pain. He reports the pain in his back is significantly better. Every once in a while he will get a pain near his left hip. He is reporting that he is typically only taking oxycodone 5 mg 2-3 times a day. He will take 1 and tablet of oxycodone 5 mg if he has "a little pain" and if the pain is more significant he will take 10 mg of oxycodone. He always takes his oxycodone with food. He typically does not exceed 3 times daily and finds response to oxycodone positive. He continues to report that his hands get cold quite easily. He utilizes a heating pad in the evening. He continues to have persistent numbness in his hands and feet that are residual from his last chemotherapy treatments. He denies dropping items. The numbness does not impair his ability to function. The patient is seen well groomed in recliner chair in the [facility] center. Articulate no evidence of acute distress. Social History - Living Situation Living arrangement: At home Living Situation: With spouse/s.o. Support System: Patient lives in a multifamily household in the lower level of his sister's house. The patient's has returned to work and with improvement of the patient's pain it is easier for her to leave for work. Both the patient and his spouse are getting more significant rest as his pain is better controlled. Medications/Allergies - Medications Home Medications: Ambulatory Orders Medication Instructions Recorded Confirmed Atorvastatin Calcium 20 mg PO QPM 03/27/20 06/11/21 Losartan [Cozaar] 50 mg PO DAILY tablet 03/30/20 06/11/21 Lidocaine/Prilocain 2.5% Cream 30 gm TOP DAILY PRN #1 tube 04/17/20 06/11/21 [Emla 2.5% Cream] Levothyroxine [Synthroid] 175 mcg PO QDAC 05/16/21 06/11/21 Loperamide [Imodium] 2 - 4 mg PO Q4HR PRN MDD 8 tabs 05/16/21 06/11/21 OLANZapine [Olanzapine] 5 mg PO .1-4 DAY WITH CHEMO 05/16/21 06/11/21 Ondansetron [Zuplenz] 4 mg PO Q6HR PRN 05/16/21 06/11/21 Senna [Senokot] 1 - 2 tab PO BID PRN 05/16/21 06/11/21 dexAMETHasone [Decadron] 2 mg PO DAILY 05/16/21 06/11/21 oxyCODONE [Roxicodone] 5 - 10 mg PO Q4H PRN 05/16/21 06/11/21 - Allergies Allergies/Adverse Reactions: Allergies Allergy/AdvReac Type Severity Reaction Status Date / Time No Known Drug Allergies Allergy Verified 04/16/21 09:50 Review of Systems - Constitutional Constitutional: reports: Weight stable (weight today 71.1kg). denies: Fever - Eyes Eyes: reports: Blurred vision (left eye), Vision loss - Ears, Nose & Throat Ears, Nose & Throat: denies: Sore throat, Mouth lesions - Cardiovascular Cardiovascular: denies: Chest pain, Edema - Respiratory Respiratory: denies: Cough - Gastrointestinal Gastrointestinal: reports: Good appetite. denies: Abdominal pain, Nausea, Vomiting - Musculoskeletal Musculoskeletal: reports: Stiffness, Other (see HPI). denies: Assistive devices, Transfer issues - Integumentary Integumentary: reports: Dryness - Neurological Neurological: reports: Numbness (see HPI). denies: Headache, Dizziness - Psychiatric Psychiatric: reports: Anxiety (regarding diagnosis but reduced as CEA has reduced and improved with chemotherapy) - All Other Systems All Other Systems: reports: Reviewed and negative Physical Exam - Vital Signs Temperature: 36.1 C Pulse Rate: 59 O2 Saturation: 98 Blood Pressure: 145/82 - Physical Exam General Appearance: positive: No acute distress, Alert Eyes Bilateral: positive: Normal inspection ENT: positive: No signs of dehydration Neck: positive: Trachea midline Cardiovascular: positive: Regular rate & rhythm Respiratory: positive: No respiratory distress, Breath sounds nml, Other (+ left chestwall port) Abdomen: positive: Non-tender, Soft, Nml bowel sounds. negative: Guarding, Distended Skin: positive: Dryness Extremities: positive: No pedal edema Neurologic/Psychiatric: positive: Oriented x3, Mood/affect nml Palliative Care - POLST Patient has POLST: No Pain: Pain improved (since continuation of chemotherapy has had a reduction in his oxycodone use with pain improvement; continues with neuropathy symptoms that are residual from previous chemotherapy) Drowsiness/Sedation: Mild (1-3) Nausea: None Anorexia: Mild (1-3) Dyspnea: None Feelings of wellbeing/Perceived Quality of Life: Good Constipation: Opoid induced, Managed, Intermittent constipation - Palliative Care Discussion: The patient is in good spirits today as he continues to have a reduction in his CEA since beginning chemotherapy. Not only that, the patient's pain has responded well to chemotherapy and he is requiring less amount of oxycodone. Patient is aware to utilize oxycodone if he requires it on an as-needed basis. New Rx sent to [facility] pharmacy at patient's request for oxycodone. Both the patient and spouse are grateful that the patient's pain is under better control and this is resulting in both of them having improved quality of life and sleep. Patient is to continue his with neuropathy to his distal extremities that is residual from previous chemotherapy. He has not had any worsening or exacerbation of this numbness and finds heating pad in the evening helpful for coolness he notes. Has it is and not impacting his function at the present time will remain off of introduction of medications such as gabapentin but something to consider in the future if new or worsening symptoms. Discussed with the patient that typically after chemotherapy neuropathy symptoms will lessen but set expectations that they may never completely go away. Impression and Recommendations - Palliative Care Impression: This is a cezar 65-year-old gentleman with recurrent stage IV colon cancer with bony mets and lymphadenopathy. Patient with improved pain management since initiation of FOLFIRI plus Avastin. Patient continues with persistent neuropathy after chemotherapy that does not impair his function. Palliative care will continue to provide support for pain and symptom management, care coordination, anticipatory guidance and psychosocial support. Recommendations/Counseling Done: 1. Pain of new a plastic origin. Improved per patient and spouse's report. Patient has been using approximately 5 mg of oxycodone approximately 3 times daily to good effect. He is aware he may take 10 mg of oxycodone if needed for more severe pain. Continue oxycodone 5 to 10 mg every 4 hours as needed for pain. Requested that the patient record time and amount of administration and to bring to next appointment with palliative care ALGOLOGY TEACHER for review. He verbalizes understanding regarding this. As patient has adequate control of pain at this time no need to move forward with the radiation but would be considered in the future if pain worsens per her oncologist. No further changes in pain regimen at this time. 2. Constipation. Secondary to opioid use. Patient has senna and is utilizing appropriately. Reviewed goal is to have a daily, soft bowel movement. 3. Peripheral neuropathy due to chemotherapy. Stable and not impeding function. Set expectations regarding management moving forward. Aware to contact palliative care if worsening numbness and may consider addition of gabapentin for symptom management in the future. Patient and aware. 4. Recurrent stage IV colon adenocarcinoma with bony mets. Patient continues floor FOLFIRI plus Avastin, does have antiemetics in the home to utilize if needed. Is in positive spirits today as CEA continues to reduce with present CEA on 06/11 was 12.3 down from 39.8 on 05/07. Continue to be followed by oncology with palliative care support. Total time spent 35 minutes with 50% of the spent in counseling coordination of care with the patient and spouse, care coordination with oncology team, oncology notes, labs, [id number] for pain and symptom management with examination and anticipatory guidance. Disclaimer: The chart note was formulated using voice recognition technology and unfortunately sound alike errors may occur.
== END 2021-06-11 08:58 | disposition home or self-care (01) ==
LOC: PC 08:57
PROVIDERS: ATTEND Nurse Practitioner Family
DX: Z51.5 Encounter for palliative care (principal); G89.3 Neoplasm related pain (acute) (chronic); K59.03 Drug induced constipation; T40.2X5A Adverse effect of other opioids, initial encounter; G62.0 Drug-induced polyneuropathy; T45.1X5S Adverse effect of antineoplastic and immunosuppressive drugs, sequela; C79.51 Secondary malignant neoplasm of bone; C18.7 Malignant neoplasm of sigmoid colon; R59.0 Localized enlarged lymph nodes; Z79.899 Other long term (current) drug therapy; Z79.891 Long term (current) use of opiate analgesic
CPT/HCPCS: 99214

== ENCOUNTER 2021-06-25 09:34 | Outpatient (CLI) | payer MEDICARE ==
--- NOTE | 2021-06-25 17:02 | CONSULTATION NOTE ---
Palliative Care Follow Up - Referral Referring Provider: Dr. Raji Hernandez Time of Visit: 0930 45 minutes Referral setting: [facility] Referral Reason: Pain of neoplastic origin/peripheral neuropathy/Recurrent colon CA w/mets - Information Sources Records reviewed: Previous records reviewed History/Review of Systems obtained from: Patient, Family ( Shellie) Exam limitations: Language barrier - History of Present Illness Update Brief HPI Update: This is a cezar 65-year-old [place] gentleman who has been diagnosed with recurrent colon cancer of the sigmoid colon With known lower C-spine and upper thoracic spine bony mets, mediastinal and right hilar adenopathy and right adrenal mass. Patient is currently receiving FOLFIRI plus Avastin since 05/14/2021. He has actually tolerated this fairly well, he originally presented with fairly severe pain. This is continued to improve. He still has some residual pain bilaterally in his hips, and lower abdominal area. Currently he reports taking oxycodone 5 mg about 5 times a day, occasionally 2 at a time. He feels like his cancer is gone again, because his pain is improved. He is eating, has not had any nausea or vomiting, and continues to have good appetite. He continues on the dexamethasone 2 mg daily. Patient continues to describe both numbness, coldness, and intermittent sharp shooting pains in his hands and feet, this is most prominent at nighttime and is interfering with his sleep. His CEA continues to decline with most recent 112.3. He remains slightly anemic at 11.8. He is in good spirits today, and is accompanied by his . Past Medical History: Retinitis pigmentosa, hypertension, hypothyroidism with history of goiter and ablation, kidney stones, chronic hearing loss, anxiety, hyperlipidemia Social History - Living Situation Living arrangement: At home Living Situation: With spouse/s.o. Support System: Patient lives in a multifamily household in the lower level of his sister's house. The patient continues to work, she does get treatment days off. He does watch his grandson who is 4 years old on a regular basis, he reports because of his peripheral neuropathy is no longer able to cook but is helping with laundry and household tasks. Medications/Allergies - Medications Home Medications: Ambulatory Orders Medication Instructions Recorded Confirmed Atorvastatin Calcium 20 mg PO QPM 03/27/20 06/25/21 Losartan [Cozaar] 50 mg PO DAILY tablet 03/30/20 06/25/21 Lidocaine/Prilocain 2.5% Cream 30 gm TOP DAILY PRN #1 tube 04/17/20 06/25/21 [Emla 2.5% Cream] Levothyroxine [Synthroid] 175 mcg PO QDAC 05/16/21 06/25/21 Loperamide [Imodium] 2 - 4 mg PO Q4HR PRN MDD 8 tabs 05/16/21 06/25/21 OLANZapine [Olanzapine] 5 mg PO .1-4 DAY WITH CHEMO 05/16/21 06/25/21 Ondansetron [Zuplenz] 4 mg PO Q6HR PRN 05/16/21 06/25/21 Senna [Senokot] 1 - 2 tab PO BID PRN 05/16/21 06/25/21 dexAMETHasone [Decadron] 2 mg PO DAILY 05/16/21 06/25/21 oxyCODONE [Roxicodone] 5 - 10 mg PO Q4H PRN 05/16/21 06/25/21 Pregabalin [Lyrica] 50 mg PO QPM 06/25/21 06/25/21 - Allergies Allergies/Adverse Reactions: Allergies Allergy/AdvReac Type Severity Reaction Status Date / Time No Known Drug Allergies Allergy Verified 04/16/21 09:50 Review of Systems - Constitutional Constitutional: reports: Fatigue (improved), Chills (at night), Weight stable - Eyes Eyes: reports: Blurred vision (left eye), Vision loss - Ears, Nose & Throat Ears, Nose & Throat: reports: Hearing loss, Dry mouth. denies: Mouth lesions - Cardiovascular Cardiovascular: reports: Decr. exercise tolerance - Respiratory Respiratory: denies: SOB at rest - Gastrointestinal Gastrointestinal: reports: Abdominal pain (lower abdominal discomfort), Good appetite. denies: Nausea, Vomiting - Musculoskeletal Musculoskeletal: reports: Stiffness, Joint pain (bilateral hip discomfort) - Integumentary Integumentary: reports: Dryness - Neurological Neurological: reports: Numbness (see HPI). denies: Headache, Dizziness - Psychiatric Psychiatric: reports: Anxiety (regarding diagnosis but reduced as CEA has reduced and improved with chemotherapy) - Hematologic/Lymphatic Hematologic/Lymph: reports: Anemia (11.8). denies: Recurrent infections - All Other Systems All Other Systems: reports: Reviewed and negative Physical Exam - Physical Exam General Appearance: positive: No acute distress, Alert Eyes Bilateral: positive: Normal inspection ENT: positive: No signs of dehydration Neck: positive: Trachea midline Cardiovascular: positive: Regular rate & rhythm Respiratory: positive: No respiratory distress, Breath sounds nml Abdomen: positive: Soft, Tenderness (lower quadrant). negative: Hepatomegaly, Mass, Distended Skin: positive: Pallor, Dryness (particularly hands) Extremities: positive: No pedal edema Neurologic/Psychiatric: positive: Oriented x3, Mood/affect nml, Flat affect Palliative Care - POLST Patient has POLST: No POLST Status: Full Code Pain: Pain unchanged (bilateral hip discomfort), Pain improved, Location (right neck/back and shoulders) Tiredness/Fatigue: Moderate (4-6) Drowsiness/Sedation: None Nausea: None Anorexia: None Dyspnea: Mild (1-3) Depression: Mild (1-3) Anxiety: Moderate (4-6) Feelings of wellbeing/Perceived Quality of Life: Good, Acceptable, Improved Sleep: Variable sleep pattern Constipation: Yes, Opoid induced, Managed Performance Status: Patient reports improved activity tolerance, is able to do more. He does get quite cold though when he is outside, though is trying to walk more. He feels like he is doing better overall and is not limited by his pain. - Palliative Care Discussion: Patient is very pleased by his progress and his pain relief. He is interpreting this as "his cancer is gone". We did review again the treatment is to help his cancer to stay in control and it is okay to be happy that he is feeling better, it does mean the treatment is working right now. Both he and his are very anxious regarding the cancer, and are looking for positive signs. We did discuss all the positive things are happening for him right now. He is in a good mood, and is taking his medications appropriately. Results - Lab Results Lab results reviewed: Yes Impression and Recommendations - Palliative Care Impression: This is a cezar 65-year-old [place] gentleman with recurrent stage IV colon cancer with bony mets and lymphadenopathy. Patient has had improved pain management since initiation of treatment, but continues with persistent neuropathy, and bilateral hip/joint discomfort. He is taking his medications appropriately, and given his discomfort is mostly at night, interested in adding something to help with the numbness/discomfort at bedtime. Palliative care w ill continue provide support for pain and symptom management, care coordination, anticipatory guidance and psychosocial support Recommendations/Counseling Done: 1. Pain of neoplastic origin. Patient is taking 5 mg of oxycodone up to 5 times a day, occasionally 10 mg of escalates. Pain is mostly in his hips at this point in time, feels it is currently under control. We will continue to monitor, most likely safer on short acting medication than long. 2. Peripheral neuropathy. This involves both numbness and pain and discomfort, does appear to be interfering with sleep. We will go ahead and trial pregabalin 50 mg at bedtime, patient has been on gabapentin in the past and has tolerated without problems. Will trial pregabalin as will expect quicker response. Instructed patient not to start until done with olanzapine dosing after 4 days. 3. Dryness. Patient has very dry hands with some peeling and cracking. Instructed to use lotion on a regular basis. Recommended Cetaphil, but to be more aggressive in managing his dryness of skin. Patient verbalized understanding. 4. Recurrent stage IV colon adenocarcinoma with bony mets. Patient continues with FOLFIRI plus Avastin, CEA is down to 12.3. Continuing to be followed by oncology with palliative care support. Patient is tolerating treatment without difficulty. 45 minutes with review oncology notes, labs, [id number] for pain and symptom management with counseling for symptom management and new medications. Disclaimer; the chart note was formulated using voice recognition technology and unfortunately sound alike errors may occur
== END 2021-06-25 09:35 | disposition home or self-care (01) ==
LOC: PC 09:34
PROVIDERS: ATTEND Nurse Practitioner Adult Health
DX: Z51.5 Encounter for palliative care (principal); G89.3 Neoplasm related pain (acute) (chronic); C18.7 Malignant neoplasm of sigmoid colon; C78.1 Secondary malignant neoplasm of mediastinum; C79.51 Secondary malignant neoplasm of bone; C79.89 Secondary malignant neoplasm of other specified sites; D64.9 Anemia, unspecified; H91.90 Unspecified hearing loss, unspecified ear; G62.9 Polyneuropathy, unspecified; L85.3 Xerosis cutis; Z79.899 Other long term (current) drug therapy
CPT/HCPCS: 99215

== ENCOUNTER 2021-07-09 08:17 | Outpatient (CLI) | payer MEDICARE ==
--- NOTE | 2021-07-09 14:42 | CONSULTATION NOTE ---
Palliative Care Follow Up - Referral Referring Provider: Dr. Raji Hernandez Time of Visit: 11:00 45 m [facility] Referral setting: [facility] Referral Reason: Pain of neoplastic origin/Recurrent colon CA with mets - Information Sources Records reviewed: Previous records reviewed History/Review of Systems obtained from: Patient Exam limitations: Language barrier - History of Present Illness Update Brief HPI Update: Rory is a cezar 65-year-old [place] gentleman who was diagnosed with recurrent colon cancer of the sigmoid colon with known bony mets, mediastinal and right hilar adenopathy, and a right adrenal mass. Patient is currently receiving FOLFIRI plus Avastin since 05/14/2021. He continues to tolerate this fairly well, and has had clinical response with improvement in pain. Still has some pain mostly located today in his left hip, and lower left abdominal area. Reports he takes oxycodone 2 tabs anywhere from 2-4 times a day, with good relief. He is eating well, has not had any nausea or vomiting and remains weight neutral. Given his appetite has continued to do well, will titrate him off the dexamethasone from 2 mg to 1 mg, but continue to watch his pain as well. Patient describes numbness, coldness and intermittent sharp shooting pains in his hands and feet. These are most prominent at bedtime, have trialed some pregabalin 50 mg, unclear if this is been more effective or not but does report he is sleeping well. His other complaint today, is worsening vision, patient does have retinitis pigmentosa, and was told by his eye doctor it was exacerbated by his chemotherapy. Patient is in good spirits, though he reports he did not sleep well last night because he was anxious about today. Past Medical History: Retinitis pigmentosa, hypertension, hypothyroidism, with history of goiter ablation, kidney stones, chronic hearing loss, anxiety, hyperlipidemia Social History - Living Situation Living arrangement: At home Living Situation: With spouse/s.o. Medications/Allergies - Medications Home Medications: Ambulatory Orders Medication Instructions Recorded Confirmed Atorvastatin Calcium 20 mg PO QPM 03/27/20 07/09/21 Losartan [Cozaar] 50 mg PO DAILY tablet 03/30/20 07/09/21 Lidocaine/Prilocain 2.5% Cream 30 gm TOP DAILY PRN #1 tube 04/17/20 07/09/21 [Emla 2.5% Cream] Levothyroxine [Synthroid] 175 mcg PO QDAC 05/16/21 07/09/21 Loperamide [Imodium] 2 - 4 mg PO Q4HR PRN MDD 8 tabs 05/16/21 07/09/21 OLANZapine [Olanzapine] 5 mg PO .1-4 DAY WITH CHEMO 05/16/21 07/09/21 Ondansetron [Zuplenz] 4 mg PO Q6HR PRN 05/16/21 07/09/21 Senna [Senokot] 1 - 2 tab PO BID PRN 05/16/21 07/09/21 dexAMETHasone [Decadron] 1 mg PO DAILY MDD tapering off 05/16/21 07/09/21 oxyCODONE [Roxicodone] 5 - 10 mg PO Q4H PRN 05/16/21 07/09/21 Pregabalin [Lyrica] 50 mg PO QPM 06/25/21 07/09/21 - Allergies Allergies/Adverse Reactions: Allergies Allergy/AdvReac Type Severity Reaction Status Date / Time No Known Drug Allergies Allergy Verified 04/16/21 09:50 Review of Systems - Constitutional Constitutional: reports: Fatigue (improved), Chills (at night), Weight stable - Eyes Eyes: reports: Blurred vision (left eye worsening), Vision loss - Ears, Nose & Throat Ears, Nose & Throat: reports: Hearing loss. denies: Mouth lesions - Cardiovascular Cardiovascular: reports: Decr. exercise tolerance - Respiratory Respiratory: denies: SOB at rest - Gastrointestinal Gastrointestinal: reports: Abdominal pain (lower left abdominal discomfort; worse with bowel movements), Good appetite. denies: Nausea, Vomiting - Musculoskeletal Musculoskeletal: reports: Stiffness, Joint pain (left hip discomfort) - Integumentary Integumentary: reports: Dryness - Neurological Neurological: reports: Numbness (see HPI). denies: Headache, Dizziness - Psychiatric Psychiatric: reports: Anxiety (regarding diagnosis but reduced as CEA has reduced and improved with chemotherapy; reports today feeling "happy") - Endocrine Endocrine: reports: Hypothyroidism - Hematologic/Lymphatic Hematologic/Lymph: reports: Anemia (11.6). denies: Recurrent infections - All Other Systems All Other Systems: reports: Reviewed and negative Physical Exam - Vital Signs Temperature: 36.6 C Pulse Rate: 55 Respiratory Rate: 18 Blood Pressure: 143/93 - Physical Exam General Appearance: positive: No acute distress, Alert Eyes Bilateral: positive: Normal inspection, No scleral icterus ENT: positive: No signs of dehydration Neck: positive: Trachea midline Cardiovascular: positive: Regular rate & rhythm Respiratory: positive: No respiratory distress, Breath sounds nml Abdomen: positive: Soft, Tenderness (left lower quadrant). negative: Hepatomegaly, Mass, Distended Skin: positive: Pallor, Dryness (particularly hands) Extremities: positive: No pedal edema Neurologic/Psychiatric: positive: Oriented x3, Mood/affect nml, Flat affect Palliative Care - POLST Patient has POLST: No POLST Status: Full Code Pain: Pain unchanged, Location (left hip and LLQ; uses 2 tabs oxycodone 2-4x a day; only intermittently as pain is intermittent), Severity (4/10) Tiredness/Fatigue: Moderate (4-6) Drowsiness/Sedation: Mild (1-3) Nausea: None Anorexia: None Dyspnea: Mild (1-3) Depression: None Anxiety: Mild (1-3) Feelings of wellbeing/Perceived Quality of Life: Good, Acceptable, Improved Sleep: Sleeps well (though had difficulty last night) Constipation: Yes, Opoid induced, Managed Performance Status: Patient reports improved activity tolerance, is doing laundry and walking outside when weather is nice. He feels like he is doing better overall, and is not limited by his pain. - Palliative Care Discussion: Patient continues to be very pleased, is happy that Dr. Hernandez is happy with how things are going. We did talk a little bit about what his goals are, he is hoping in November or December to return to the [facility], he wants to go back and transfer his lancets he does have a home back there. He is planning to for a family reunion to see his sister and brother, his mother actually lives here in [place] and is 87 years old. He reports things are going fairly well overall, and his spirits are fairly bright Results - Lab Results Lab results reviewed: Yes Impression and Recommendations - Palliative Care Impression: This is a cezar 65-year-old [place] gentleman with recurrent stage IV colon cancer with bony mets and lymphadenopathy. Patient's pain is managed with intermittent oxycodone, take in response to his fluctuating pain levels, identifies it mostly in his left hip and left lower abdomen currently. Patient did trial some pregabalin for persistent peripheral neuropathy, unclear if this is been helpful but will continue at this time. Palliative care will continue to provide support for pain and symptom management, care coordination, psychoso cial support and anticipatory guidance. Recommendations/Counseling Done: 1. Pain of neoplastic origin. Patient is taking 5 to 10 mg of oxycodone 2-4 times a day per his report. Pain is mostly at his left hip and left lower quadrant, reports he is comfortable with his current regimen. New prescription provided. 2. Peripheral neuropathy. This is demonstrating both numbness, pain, and discomfort in the context of feeling cold. He reports his he is sleeping better, but is unclear if medication helping with symptoms. We will go ahead and trial pregabalin 50 mg at bedtime continues, will titrate up next visit if appears more problematic. 3. Anorexia. This appears to be resolved. Patient is eating well without any difficulty, and reports he is even gained a pound or 2. Patient has been on dexamethasone both for pain and appetite, will trial decreasing, instructed to take half tab of the 2 mg tablets until we meet again. 4. 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 Patient continues with FOLFIRI plus Avastin, CEA continues to decrease. Continue to check on patient with the cycle for support of oncology, given in the time text of health literacy and language barriers to closely manage symptom management. Review of oncology notes, labs, scans, counseling provided regarding pain and symptom management, review of medications, and coping as well as coordination of care with oncology team.
== END 2021-07-09 08:18 | disposition home or self-care (01) ==
LOC: PC 08:17
PROVIDERS: ATTEND Nurse Practitioner Adult Health
DX: Z51.5 Encounter for palliative care (principal); G89.3 Neoplasm related pain (acute) (chronic); M25.552 Pain in left hip; R10.32 Left lower quadrant pain; C18.7 Malignant neoplasm of sigmoid colon; C79.51 Secondary malignant neoplasm of bone; Z79.899 Other long term (current) drug therapy; R59.0 Localized enlarged lymph nodes; G62.9 Polyneuropathy, unspecified
CPT/HCPCS: 99215

== ENCOUNTER 2021-08-20 09:08 | Outpatient (CLI) | payer MEDICARE ==
--- NOTE | 2021-08-20 10:22 | CONSULTATION NOTE ---
Palliative Care Follow Up - Referral Referring Provider: Dr. Raji Hernandez Time of Visit: 0910 45 minutes [place] [facility] [place] Reason: Pain of neoplastic origin/Recurrent Colon CA with mets - Information Sources Records reviewed: Previous records reviewed History/Review of Systems obtained from: Patient Exam limitations: Language barrier - History of Present Illness Update Brief HPI Update: This is a cezar 65-year-old [place] gentleman who was diagnosed with recurrent colon cancer of the sigmoid with known bony mets, mediastinal and right hilar adenopathy, mesenteric mets to his left lower quadrant, and right adrenal mass. Patient is currently on #8 of FOLFIRI plus Avastin, since 09/2020. He just had restaging scans that show a good response, and will be transitioning to maintenance therapy. Patient continues to have pain mostly located in his left hip area, on PET scan it appears to be correlated possibly with a cluster of mesenteric nodes on left side 2.2 x 3.5 cm originally, as well as left lower quadrant over the area of where the known sigmoid mass recurrence happened. He reports he takes oxycodone 1 tab anywhere from 2-3 times a day with good relief. He is doing well with the pregabalin 50 mg at bedtime, and has been able to taper off the dexamethasone. He describes that occasionally he feels "drunk, when he is walking, trying to tease this out if it is his neuropathy, side effects of his medication, or weakness. Patient's gait is somewhat ataxic. He does describe numbness coldness and intermittent sharp shooting pains both in his feet and lower extremities and his hands. They are most prominent at bedtime, he has had worsening vision of his retinitis pigmentosa, he is in good spirits and excited to have the news things are doing well. Past Medical History: Retinitis pigmentosa, hypertension, hypothyroidism, history of goiter ablation, kidney stones, chronic hearing loss, anxiety, hyperlipidemia Social History - Living Situation Living arrangement: At home Living Situation: With spouse/s.o. Support System: Patient lives in a multifamily household in the lower level of his sister's house. The patient's continues to work, she tries to get treatment days off with FMLA. He does watch his grandson is 5 years old on a regular basis, because of his peripheral neuropathy is no longer able to cook but is helping with laundry and household tasks. We did discuss he is very happy that all his kids are from the [facility] and living here in [place]. His mother who is 85 is still alive and lives in [place]. He dislikes a cold and stays mostly in the house secondary to the weather. He was hoping to plan a visit to the [facility] to visit his family in the spring. This will be dictated mostly by Covid restrictions Medications/Allergies - Medications Home Medications: Ambulatory Orders Medication Instructions Recorded Confirmed Atorvastatin Calcium 20 mg PO QPM 03/27/20 08/20/21 Losartan [Cozaar] 50 mg PO DAILY tablet 03/30/20 08/20/21 Lidocaine/Prilocain 2.5% Cream 30 gm TOP DAILY PRN #1 tube 04/17/20 08/20/21 [Emla 2.5% Cream] Levothyroxine [Synthroid] 175 mcg PO QDAC 05/16/21 08/20/21 Loperamide [Imodium] 2 - 4 mg PO Q4HR PRN MDD 8 tabs 05/16/21 08/20/21 OLANZapine [Olanzapine] 5 mg PO .1-4 DAY WITH CHEMO 05/16/21 08/20/21 Ondansetron [Zuplenz] 4 mg PO Q6HR PRN 05/16/21 08/20/21 Senna [Senokot] 1 - 2 tab PO BID PRN 05/16/21 08/20/21 oxyCODONE [Roxicodone] 5 - 10 mg PO Q4H PRN 05/16/21 08/20/21 Pregabalin [Lyrica] 50 mg PO QPM 06/25/21 08/20/21 - Allergies Allergies/Adverse Reactions: Allergies Allergy/AdvReac Type Severity Reaction Status Date / Time No Known Drug Allergies Allergy Verified 04/16/21 09:50 Review of Systems - Constitutional Constitutional: reports: Fatigue (improved), Chills (at night), Weight stable - Eyes Eyes: reports: Blurred vision (left eye worsening), Vision loss - Ears, Nose & Throat Ears, Nose & Throat: reports: Hearing loss. denies: Mouth lesions - Cardiovascular Cardiovascular: reports: Decr. exercise tolerance - Respiratory Respiratory: reports: SOB with exertion. denies: SOB at rest - Gastrointestinal Gastrointestinal: reports: Abdominal pain (lower left abdominal discomfort; worse with bowel movements), Good appetite. denies: Constipation, Nausea, Vomiting - Musculoskeletal Musculoskeletal: reports: Stiffness, Joint pain (left hip discomfort) - Integumentary Integumentary: reports: Dryness - Neurological Neurological: reports: Numbness (see HPI). denies: Headache, Dizziness - Endocrine Endocrine: reports: Diabetes type 2, Hypothyroidism - Hematologic/Lymphatic Hematologic/Lymph: reports: Anemia (11.2). denies: Recurrent infections - All Other Systems All Other Systems: reports: Reviewed and negative Physical Exam - Physical Exam General Appearance: positive: No acute distress, Alert Eyes Bilateral: positive: Normal inspection ENT: positive: No signs of dehydration Neck: positive: Trachea midline Cardiovascular: positive: Regular rate & rhythm Respiratory: positive: No respiratory distress, Breath sounds nml Abdomen: positive: Soft, Tenderness (LLQ), Other (rounded). negative: Mass Skin: positive: Dryness Extremities: positive: Full ROM, No pedal edema, Other (slight ataxic gait) Neurologic/Psychiatric: positive: Oriented x3, Mood/affect nml Palliative Care - POLST Patient has POLST: No POLST Status: Full Code Pain: Pain improved, Location (see HPI) Feelings of wellbeing/Perceived Quality of Life: Good, Acceptable Sleep: Sleeps well Constipation: Yes, Managed Performance Status: Patient have been ambulating outside, reports to cold. Does walk back and forth in the house. Is able to manage his own ADLs, is having some trouble secondary to neuropathy in his hands with more fine motor movements. - Palliative Care Discussion: Discussed with patient that his scans were quite good, that he is doing well with his chemotherapy. And that Dr. Hernandez will be talking to him about the chemotherapy plan with his next visit. He is still hoping to go to the [facility] in the spring, is waiting on the Covid outcome. He feels happy overall. He reports his spirits are bright and is looking forward to the [facility]. He does help care for his 5-year-old grandson, and does enjoy spending time with him. He also talked some about his mother who lives in [place] and is 85 years old. He says that he is eating really well, in his mind when he stops eating, or when he cannot eat then it is for him end-of-life. He is feeling quite positive about his current situation and feels like his quality of life is good overall. Results - Lab Results Lab results reviewed: Yes Lab and Imaging Results: scans and labs reviewed Impression and Recommendations - Palliative Care Impression: This is a cezar 65-year-old [place] gentleman with recurrent stage IV sigmoid colon cancer, with bony mets and lymph nodes. Patient's pain remains somewhat intermittent, he is taking oxycodone in response to his fluctuating pain levels. Identifies mostly in his left hip area and left lower abdomen. He did trial some pregabalin for his persistent peripheral neuropathy, though numbness is a stronger component of this, he reports it is helping. Palliative care will continue provide support for pain and symptom management, care coordination, psychosocial support and anticipatory guidance Recommendations/Counseling Done: 1. Pain of neoplastic origin. Patient continues to improve, he is only taking 5 mg 1-2 times a day per his report. Pain is mostly in his left hip area and left lower quadrant, he reports his comfortable with his current regimen. Patient does not need a refill on his meds. 2. Peripheral neuropathy. Patient is demonstrating both numbness pain and discomfort, worsening with the cold. He reports he is sleeping better, is doing pregabalin 50 mg at bedtime, does not feel like it is becoming more problematic. We will continue at current dosing. 3. Anorexia. This appears to be resolved, patient has titrated off dexamethasone. He is eating well. He equates his ability to eat with his survival and doing better. Patient's continuing with intermittent drinks. He has only lost 1 pound since his last appointment and remained stable. 4. Recurrent stage IV adenocarcinoma the colon with bony mets and lymph. Patient continues with FOLFIRI plus Avastin, with decreasing CEA and scans showing good response. He will be transitioning to maintenance therapy, he is quite excited about his news today. In the context of health literacy and language barriers Does appear to understand the seriousness of his illness, but is very pleased with his response. 45 minutes with review of labs, scans, oncology notes. Counseling provided regarding pain and symptom management, review of meds, coping as well as coordination of care with oncology team
== END 2021-08-20 09:09 | disposition home or self-care (01) ==
LOC: PC 09:08
PROVIDERS: ATTEND Nurse Practitioner Adult Health
DX: Z51.5 Encounter for palliative care (principal); G89.3 Neoplasm related pain (acute) (chronic); C18.7 Malignant neoplasm of sigmoid colon; C78.6 Secondary malignant neoplasm of retroperitoneum and peritoneum; C79.51 Secondary malignant neoplasm of bone; E11.42 Type 2 diabetes mellitus with diabetic polyneuropathy; Z79.899 Other long term (current) drug therapy
CPT/HCPCS: 99215

== ENCOUNTER 2021-10-15 09:10 | Outpatient (CLI) | payer MEDICARE ==
--- NOTE | 2021-10-15 10:31 | CONSULTATION NOTE ---
Palliative Care Follow Up - Referral Referring Provider: Dr. Raji Hernandez Time of Visit: 0910 45 min Referral setting: [facility] [place] Referral Reason: Constipation/Pain of neoplastic origin/Met Colon CA - Information Sources Records reviewed: Previous records reviewed History/Review of Systems obtained from: Patient, Family ( Shellie present) Exam limitations: Language barrier - History of Present Illness Update Brief HPI Update: This is a cezar 65-year-old [place] gentleman, with diagnosis of recurrent colon cancer sigmoid with known bony mets, mediastinal and right hilar adenopathy, mesenteric mets to his left lower quadrant and right adrenal mass.Patient is currently on FOLFIRI plus Avastin, but has been on hold this last week. Patient called in, with taste changes, weakness, poor intake, and spent several days in bed. As it turns out his Judi had tested positive for Covid, patient did not have follow-up testing but assumption is he was Covid positive. He reports his taste are coming back, he is still quite weak had a 10 pound weight loss, reports early satiety, and now constipation for greater than a week. He originally had diarrhea with his initial infection. Patient continues with left lower quadrant pain over the area of known sigmoid mass recurrence, radiating into his back of his left hip. He reports a 5 out of 10 pain. He does use oxycodone 1 tab anywhere from 2-4 times a day, reports they last about 5 tabs. Patient continues with numbness and some slight neuropathy in his feet. Patient's gait is somewhat ataxic. Past Medical History: Retinitis pigmentosa, hypertension, hypothyroidism, history of goiter ablation, kidney stones, chronic hearing loss, anxiety, hyperlipidemia Social History - Living Situation Living arrangement: At home Living Situation: With spouse/s.o. Support System: Patient lives in a multifamily household, in the lower level his sister's house. Patient's needed, continues to work, tries to get treatment days off with [facility]. He does watch his grandson who is 5 years old on a regular basis, his mother is 85 is still alive and lives in [place]. He was hoping to plan a visit to the [facility] in the spring, patient has not been vaccinated. Medications/Allergies - Medications Home Medications: Ambulatory Orders Medication Instructions Recorded Confirmed Atorvastatin Calcium 20 mg PO QPM 03/27/20 10/15/21 Losartan [Cozaar] 50 mg PO DAILY tablet 03/30/20 10/15/21 Lidocaine/Prilocain 2.5% Cream 30 gm TOP DAILY PRN #1 tube 04/17/20 10/15/21 [Emla 2.5% Cream] Levothyroxine [Synthroid] 175 mcg PO QDAC 05/16/21 10/15/21 Loperamide [Imodium] 2 - 4 mg PO Q4HR PRN MDD 8 tabs 05/16/21 10/15/21 OLANZapine [Olanzapine] 5 mg PO .1-4 DAY WITH CHEMO 05/16/21 10/15/21 Ondansetron [Zuplenz] 4 mg PO Q6HR PRN 05/16/21 10/15/21 Senna [Senokot] 1 - 2 tab PO BID PRN 05/16/21 10/15/21 oxyCODONE [Roxicodone] 5 - 10 mg PO Q4H PRN 05/16/21 10/15/21 Pregabalin [Lyrica] 50 mg PO QPM 06/25/21 10/15/21 polyethylene glycoL 3350 [Miralax] 17 gm PO DAILY PRN 30 Days #30 09/17/21 packet - Allergies Allergies/Adverse Reactions: Allergies Allergy/AdvReac Type Severity Reaction Status Date / Time No Known Drug Allergies Allergy Verified 10/15/21 10:28 Review of Systems - Constitutional Constitutional: reports: Fatigue (worsened with illness), Weight loss (lost 10 pounds over illness 146) - Eyes Eyes: reports: Blurred vision (left eye worsening), Vision loss - Ears, Nose & Throat Ears, Nose & Throat: reports: Hearing loss. denies: Mouth lesions - Cardiovascular Cardiovascular: reports: Lightheadedness, Exertional dyspnea, Decr. exercise tolerance - Respiratory Respiratory: reports: SOB with exertion. denies: SOB at rest - Gastrointestinal Gastrointestinal: reports: Abdominal pain (lower left abdominal discomfort; worse with bowel movements), Bloating, Poor appetite, Early satiety, Other (taste changes with illness; returning). denies: Constipation, Nausea, Vomiting - Musculoskeletal Musculoskeletal: reports: Stiffness, Joint pain (left hip discomfort) - Integumentary Integumentary: reports: Dryness - Neurological Neurological: reports: General weakness, Numbness (see HPI). denies: Headache, Dizziness - Psychiatric Psychiatric: reports: Anxiety (worried about missing chemo but doesn't feel "ready") - Endocrine Endocrine: reports: Diabetes type 2, Hypothyroidism - Hematologic/Lymphatic Hematologic/Lymph: reports: Anemia (11.6). denies: Recurrent infections - All Other Systems All Other Systems: reports: Reviewed and negative Physical Exam - Physical Exam General Appearance: positive: No acute distress, Alert Eyes Bilateral: positive: Normal inspection ENT: positive: No signs of dehydration Neck: positive: Trachea midline Cardiovascular: positive: Regular rate & rhythm Respiratory: positive: No respiratory distress Abdomen: positive: Soft, Tenderness (LLQ), Other (rounded). negative: Mass Skin: positive: Dryness Extremities: positive: Full ROM, No pedal edema, Other (slight ataxic gait) Neurologic/Psychiatric: positive: Oriented x3, Mood/affect nml, Weakness, Flat affect Palliative Care - POLST Patient has POLST: No POLST Status: Full Code Pain: Pain unchanged, Location (see HPI) Tiredness/Fatigue: Moderate (4-6) Drowsiness/Sedation: Mild (1-3) Nausea: None Anorexia: Moderate (4-6), Weight loss Dyspnea: Mild (1-3) Depression: None Anxiety: Mild (1-3) Feelings of wellbeing/Perceived Quality of Life: Fair, Acceptable, Comment (ill last 3 weeks) Sleep: Sleeps well Constipation: Yes, Opoid induced, Unmanaged (reports no BM for one week; very uncomfortable has only tried a couple of senna) Performance Status: Reports he has been mostly sleeping in bed, is starting to feel stronger and walk around the house. Has been feeling quite weak but feeling stronger now that he is eating and drinking better. He is able to manage his own ADLs. Patient does not drive because of his vision issues - Palliative Care Discussion: A long discussion in the context of Covid, Covid vaccines, 's positive and patient's presentation with symptoms. Patient has not been vaccinated, unclear hesitation, but is willing to after has "recovered". Counseling provided regarding recommendations particularly with serious illness to have Covid vaccines and patient is still at risk for another exposure/infection. Reports he was feeling poorly, he always gauges his health by if he can eat or not, he was not able to eat, was feeling what would be described as vulnerable. Patient and continue to hope for the best, patient is very treatment oriented but wants to feel better before restarts. 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 Patient's pain remains fluctuating, is taking oxycodone response to this, appears to be appropriate to be continue to manage on short acting. He continues to identify his left hip and left lower abdomen as source of discomfort. Patient presents with history of COVID symptoms, has had 10 pound weight loss, taste changes, initial Bear with diarrhea, now presents with constipation. Palliative care continue to provide support for pain and symptom management, care coordination, psychosocial support and anticipatory guidance. Recommendations/Counseling Done: 1. Constipation. This is multifactorial, patient reports no BM for 1 week, denies any nausea or vomiting, complains of some bloating with this. Does have his baseline abdominal left lower quadrant tenderness, but otherwise abdomen is soft. Patient has been instructed to take 2 senna when he gets home, repeat in 4 to 6 hours if no BM, and if no BM by evening, repeat another 2 for a total of 6. If no BM by next day to repeat the same instructions. Patient then has been instructed to take 2 senna on a regular basis daily secondary to his opioid use. 2. Pain of neoplastic origin. Patient continues to use only 5 mg 1-2 times a day on good days, up to 4 times with more movement and discomfort. Patient's pain remains mostly in his left hip and lower quadrant area, patient does not need a refill on his meds at this time, is satisfied with his current regimen. 3. Peripheral neuropathy. Patient demonstrating both numbness, pain and discomfort, worsening with a cold. He is sleeping better with the pregabalin 50 mg at bedtime, will continue current dosing. 4. Covid symptoms. Patient was exposed to who was Covid positive. Patient describes taste changes, diarrhea, poor intake and has had a weight loss of 10 pounds over the last 2 to 3 weeks. He reports he is eating better now, we discussed strategies for managing his current early satiety, instructed to eat small amounts every 2-3 hours and drink 1-2 nutritional drinks daily in between, he does find most rich instructed to dilute with water. 5. 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 Patient continues with FOLFIRI plus Avastin, with decreasing CEA. He is soon to transition to maintenance therapy, in the context of his health literacy and language barriers he does appear to understand the seriousness of his illness but is very pleased with his response. Continue to build rapport with patient and given expected trajectory. 45 minutes with review of labs, chart, [id number], coordination of care with oncology team.
== END 2021-10-15 09:11 | disposition home or self-care (01) ==
LOC: PC 09:10
PROVIDERS: ATTEND Nurse Practitioner Adult Health
DX: Z51.5 Encounter for palliative care (principal); R63.4 Abnormal weight loss; R43.9 Unspecified disturbances of smell and taste; R68.81 Early satiety; R53.1 Weakness; R53.83 Other fatigue; K59.03 Drug induced constipation; T40.2X5A Adverse effect of other opioids, initial encounter; G62.9 Polyneuropathy, unspecified; C79.51 Secondary malignant neoplasm of bone; C77.9 Secondary and unspecified malignant neoplasm of lymph node, unspecified; C18.7 Malignant neoplasm of sigmoid colon; Z20.822 Contact with and (suspected) exposure to COVID-19; Z79.899 Other long term (current) drug therapy
CPT/HCPCS: 99215

== ENCOUNTER 2021-11-05 08:30 | Outpatient (CLI) | payer MEDICARE ==
--- NOTE | 2021-11-05 12:37 | CONSULTATION NOTE ---
Palliative Care Follow Up - Referral Referring Provider: Dr. Raji Hernandez Time of Visit: 0830 60 min Referral setting: [facility] [place] Referral Reason: Pain of neoplastic origin/Met Colon CA/Constipation - Information Sources Records reviewed: Previous records reviewed History/Review of Systems obtained from: Patient Exam limitations: Language barrier - History of Present Illness Update Brief HPI Update: THis a cezar 65-year-old Citizen Of [place] gentleman with a diagnosis of recurrent colon cancer with known bony mets, mediastinal and right hilar adenopathy, mesenteric mets to his left lower quadrant and right adrenal mass. Patient received a break in treatment secondary to encounter with Home that lasted several weeks, did not get tested but his Judi had tested positive. Patient is doing somewhat better. Has regained about 6 pounds, is eating well, but does complain about worsening pain. Patient continues to identify it as left lower quadrant, left hip, radiating to the back, has reported increased pain of 7 out of 10. He uses 2 oxycodone 3-4 times a day, they last about 5 hours. He also is complaining of left scapular pain and some cervical discomfort. Patient reports the numbness and burning sensation continue on his feet, but with the pregabalin he has slept better and denies further increase in pain but numbness continues and is identified up to his ankles. Patient's gait remains somewhat ataxic. He reports he has had no bowel movement for 3 to 4 days. Patient is also requesting refill on his thyroid medication, no recent labs in system. Past Medical History: Retinitis pigmentosa, hypertension, hypothyroidism, history of goiter ablation, kidney stones, chronic hearing loss, anxiety, hyperlipidemia Social History - Living Situation Living arrangement: At home Living Situation: With spouse/s.o. Support System: Patient lives in a multifamily household, in the lower level of the sister's house. Patient's and ERIK continues to work, he does watch his grandson who is 5 years old on a regular basis. His mother 85 is still alive and lives in [place]. Patient does have plans for getting vaccinated next week. Medications/Allergies - Medications Home Medications: Ambulatory Orders Medication Instructions Recorded Confirmed Atorvastatin Calcium 20 mg PO QPM 03/27/20 10/15/21 Losartan [Cozaar] 50 mg PO DAILY tablet 03/30/20 10/15/21 Lidocaine/Prilocain 2.5% Cream 30 gm TOP DAILY PRN #1 tube 04/17/20 10/15/21 [Emla 2.5% Cream] Levothyroxine [Synthroid] 175 mcg PO QDAC 05/16/21 10/15/21 Loperamide [Imodium] 2 - 4 mg PO Q4HR PRN MDD 8 tabs 05/16/21 10/15/21 OLANZapine [Olanzapine] 5 mg PO .1-4 DAY WITH CHEMO 05/16/21 10/15/21 Ondansetron [Zuplenz] 4 mg PO Q6HR PRN 05/16/21 10/15/21 Senna [Senokot] 1 - 2 tab PO BID PRN 05/16/21 10/15/21 oxyCODONE [Roxicodone] 5 - 10 mg PO Q4H PRN 05/16/21 10/15/21 Pregabalin [Lyrica] 50 mg PO QPM 06/25/21 10/15/21 polyethylene glycoL 3350 [Miralax] 17 gm PO DAILY PRN 30 Days #30 09/17/21 packet - Allergies Allergies/Adverse Reactions: Allergies Allergy/AdvReac Type Severity Reaction Status Date / Time No Known Drug Allergies Allergy Verified 10/15/21 10:28 Review of Systems - Constitutional Constitutional: reports: Fatigue, Chills, Weight gain (from weight loss has gained 6 pounds; appetite improved) - Eyes Eyes: reports: Blurred vision (left eye worsening), Vision loss - Ears, Nose & Throat Ears, Nose & Throat: reports: Hearing loss. denies: Mouth lesions - Cardiovascular Cardiovascular: reports: Decr. exercise tolerance - Respiratory Respiratory: reports: SOB with exertion. denies: SOB at rest - Gastrointestinal Gastrointestinal: reports: Abdominal pain (LLQ), Constipation (continues struggle with constipation), Good appetite. denies: Nausea - Musculoskeletal Musculoskeletal: reports: Stiffness, Joint pain (left hip discomfort) - Integumentary Integumentary: reports: Dryness - Neurological Neurological: reports: Numbness (persistent in feet; mild in hands fluctuates) - Psychiatric Psychiatric: reports: Anxiety (worried about missing chemo but doesn't feel "ready") - Endocrine Endocrine: reports: Diabetes type 2, Hypothyroidism (labs ordered) - Hematologic/Lymphatic Hematologic/Lymph: reports: Anemia (10.9) - All Other Systems All Other Systems: reports: Reviewed and negative Physical Exam - Vital Signs Pulse Rate: 69 Respiratory Rate: 16 O2 Saturation: 98 Blood Pressure: 147/92 - Physical Exam General Appearance: positive: No acute distress, Alert Eyes Bilateral: positive: Normal inspection ENT: positive: No signs of dehydration Neck: positive: Trachea midline Cardiovascular: positive: Regular rate & rhythm Respiratory: positive: No respiratory distress, Breath sounds nml Abdomen: positive: Soft, Tenderness Skin: positive: Dryness Extremities: positive: No pedal edema, Other (ataxic gait) Neurologic/Psychiatric: positive: Oriented x3, Mood/affect nml Palliative Care - POLST Patient has POLST: No POLST Status: Full Code Pain: Pain worsening, Location (see HPI), Comment (currently taking oxycodone 10 mg 3-4 x a day) Tiredness/Fatigue: Moderate (4-6) Sleep: Sleeps well Constipation: Yes, Opoid induced, Intermittent constipation, Comment (using 2 senna daily) Performance Status: Patient reports strength has improved, is ambulatory in his house, able to walk 50 to 75 feet on a regular basis. Does get cold if he goes outside. Is managing his ADLs, does have some fine motor deficits. - Palliative Care Discussion: Patient remains very treatment oriented, reports this is his "last treatment", we discussed most likely will still be getting treatment but may be easier on him. He is to meet with oncology. Patient is concerned his pain is worse, reviewed management again with his short acting oxycodone. Patient continues to be challenged with understanding treatment plan and managing symptoms. 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 Patient's pain appears to be more intense and persistent, needing more medication to manage. Patient is improving after history of COVID, with weight gain, eating better, taste has returned, no further diarrhea. Palliative care continue to provide support for pain and symptom management, care coordination, psychosocial support and anticipatory guidance Recommendations/Counseling Done: 1. Pain of neoplastic origin. Patient of concern with history of known bony mets, consult with oncology, will do a bone scan. Patient may be a candidate for radiation. Patient instructed to continue with oxycodone 2 tabs up to 8 tabs a day. Patient does report it is effective for pain, but only lasting 4 to 5 hours. Hesitant given patient's history and concerns for medication a dherence to switch to long-acting, will continue to evaluate. 2. Constipation. This is multifactorial, patient reports no BM for 4 days, has been doing the senna 2 tabs. Instructed given that he is using more oxycodone, probably needs to increase this to 2 tabs twice daily. He also is aware to start taking 2 tabs every 4 hours until he goes, as it has been a while yet. 3. Peripheral neuropathy. Patient demonstrating both numbness, pain and discomfort, he is sleeping better with the pregabalin 50 mg at bedtime, reports the burning sensation is resolved though his gait remains ataxic, he reports the numbness is above his ankles now. 4. History of COVID. Patient had had a significant weight loss related to taste changes, doing poorly, he reports he is eating better now and has gained 7 pounds back. He is goal is to recover to 160 pounds. He is doing strawberry ensures, and working with frequent small feedings. 5. Recurrent stage IV adenocarcinoma the colon with bony and lymph node mets. Patient is due for scans, is to transition soon to maintenance therapy. Patient does understand the seriousness of his illness, but is very still treatment driven. Palliative care to continue to build rapport with patient and given expected trajectory. 6. Hypothyroidism. Patient's numbers are fairly significant, I did follow-up with patient's primary care provider Dr. Canales. Patient has not had appropriate refills, most likely has skipped or missed multiple doses. After much discussion, he will continue with the same dosing at 175 mcg, request recheck in 6 weeks. And reinforce compliance with patient. 60 minutes review of chart, oncology notes, labs, coordination of care with oncology and PCP Dr. Canales, for [id number] with patient, reorder of medications, anticipatory guidance.
== END 2021-11-05 08:31 | disposition home or self-care (01) ==
LOC: PC 08:30
PROVIDERS: ATTEND Nurse Practitioner Adult Health
DX: Z51.5 Encounter for palliative care (principal); G89.3 Neoplasm related pain (acute) (chronic); C18.9 Malignant neoplasm of colon, unspecified; C78.1 Secondary malignant neoplasm of mediastinum; C77.9 Secondary and unspecified malignant neoplasm of lymph node, unspecified; C79.51 Secondary malignant neoplasm of bone; C79.71 Secondary malignant neoplasm of right adrenal gland; K59.03 Drug induced constipation; T40.2X5A Adverse effect of other opioids, initial encounter; G62.9 Polyneuropathy, unspecified; Z86.16 Personal history of COVID-19; E03.9 Hypothyroidism, unspecified
CPT/HCPCS: 99215

== ENCOUNTER 2021-12-03 09:34 | Outpatient (CLI) | payer MEDICARE ==
--- NOTE | 2021-12-04 20:32 | CONSULTATION NOTE ---
Palliative Care Follow Up - Referral Referring Provider: Dr. Raji Hernandez Time of Visit: Wednesday12/03/2021 1130 45 minutes Referral setting: [facility] [place] Referral Reason: Pain of neoplastic origin/Constipation/Met Colon CA - Information Sources Records reviewed: Previous records reviewed History/Review of Systems obtained from: Patient, Family (spoke with Shellie) Exam limitations: Language barrier - History of Present Illness Update Brief HPI Update: This is a cezar 66-year-old [place] gentleman with a diagnosis of recurrent colon cancer with known bony mets, mediastinal and right hilar adenopathy, mesenteric mets to his left lower quadrant and right adrenal mass. He has continued to receive a good response from his treatment, his CEA down is down to 8.7. But unfortunately he does present with worsening pain, suspicious of bony mets. His most specific area is his left hip, radiating to the back. Reports pain as 7 out of 10, does use 10 mg of oxycodone up to 4 times a day, he also is complaining of left scapular pain and some cervical discomfort. His most recent scans do show sclerotic/bony suspicious lesions in the cervical area as well as T12. Given is still not notable as far as target for radiation if possible, and in consultation with oncology, will get a nuclear bone scan. Patient using oxycodone short acting, hesitation given patient's health literacy to initiate long acting until after scans complete. He dislikes the sedation from the pain medication, continues to struggle with constipation despite review of bowel programs multiple times, and continues to complain of persistent fatigue Past Medical History: Retinitis pigmentosa, hypertension, hypothyroidism, history of goiter ablation, kidney stones, chronic hearing loss, anxiety, hyperlipidemia Social History - Living Situation Living arrangement: At home Living Situation: With spouse/s.o. Support System: Patient lives in a multifamily household, in the lower level of his sister's house. Patient's needed continues to work, reports that has been very busy she has been working 7 days a week and is quite exhausted. He does try and help with household tasks, he has been disabled secondary to his visual changes with his retinitis pigmentosa, he feels like this is actually worsening. His mother is 85 and still lives in [place], patient was hoping to return back to the [facility] for visit. Unclear if this is possible. Medications/Allergies - Medications Home Medications: Ambulatory Orders Medication Instructions Recorded Confirmed Atorvastatin Calcium 20 mg PO QPM 03/27/20 10/15/21 Losartan [Cozaar] 50 mg PO DAILY tablet 03/30/20 10/15/21 Lidocaine/Prilocain 2.5% Cream 30 gm TOP DAILY PRN #1 tube 04/17/20 10/15/21 [Emla 2.5% Cream] Levothyroxine [Synthroid] 175 mcg PO QDAC 05/16/21 10/15/21 Loperamide [Imodium] 2 - 4 mg PO Q4HR PRN MDD 8 tabs 05/16/21 10/15/21 OLANZapine [Olanzapine] 5 mg PO .1-4 DAY WITH CHEMO 05/16/21 10/15/21 Ondansetron [Zuplenz] 4 mg PO Q6HR PRN 05/16/21 10/15/21 Senna [Senokot] 1 - 2 tab PO BID PRN 05/16/21 10/15/21 oxyCODONE [Roxicodone] 5 - 10 mg PO Q4H PRN 05/16/21 10/15/21 Pregabalin [Lyrica] 50 mg PO QPM 06/25/21 10/15/21 polyethylene glycoL 3350 [Miralax] 17 gm PO DAILY PRN 30 Days #30 09/17/21 packet - Allergies Allergies/Adverse Reactions: Allergies Allergy/AdvReac Type Severity Reaction Status Date / Time No Known Drug Allergies Allergy Verified 10/15/21 10:28 Review of Systems - Constitutional Constitutional: reports: Fatigue, Chills (complains of being cold), Weight stable (65.9) - Eyes Eyes: reports: Blurred vision (left eye worsening), Vision loss - Ears, Nose & Throat Ears, Nose & Throat: reports: Hearing loss. denies: Mouth lesions - Cardiovascular Cardiovascular: reports: Exertional dyspnea, Decr. exercise tolerance. denies: Chest pain, Edema - Respiratory Respiratory: reports: SOB with exertion. denies: SOB at rest - Gastrointestinal Gastrointestinal: reports: Abdominal pain, Constipation, Good appetite - Genitourinary Genitourinary: reports: Frequency - Musculoskeletal Musculoskeletal: reports: Stiffness, Joint pain (left hip discomfort) - Integumentary Integumentary: reports: Dryness - Neurological Neurological: reports: Numbness (persistent in feet; mild in hands fluctuates) - Psychiatric Psychiatric: reports: Anxiety (worried about his worsening pain) - Endocrine Endocrine: reports: Diabetes type 2, Hypothyroidism (had followed up with PCP; according to his records patient NOT taking on regular basis did not want to increase until patient compliant reordered at previous dose; 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 denies: Recurrent infections - All Other Systems All Other Systems: reports: Reviewed and negative Physical Exam - Physical Exam General Appearance: positive: Mild distress, Anxious Eyes Bilateral: positive: Normal inspection ENT: positive: No signs of dehydration Neck: positive: No JVD, Trachea midline Respiratory: positive: No respiratory distress Abdomen: positive: Soft, Tenderness Skin: positive: Dryness Extremities: positive: Full ROM, No pedal edema Neurologic/Psychiatric: positive: Oriented x3, Depressed mood/affect Palliative Care - POLST Patient has POLST: No Pain: Pain worsening, Location, Severity (left hip and left scapula;), Comment (patient has been encouraged every visit to take more often than 5-6 hours; does not like sedation and constipation) Tiredness/Fatigue: Moderate (4-6) Drowsiness/Sedation: Mild (1-3) Nausea: None Anorexia: Mild (1-3) Dyspnea: None Depression: None Anxiety: Moderate (4-6) Feelings of wellbeing/Perceived Quality of Life: Fair, Acceptable, No change Sleep: Sleeps well Constipation: Yes, Opoid induced, Unmanaged, Intermittent constipation, Comment (patient showed me his senna; continues to struggle with follow through on taking; worries about diarrhea) Performance Status: Patient reports increased pain with ambulation, but is still able to manage his ADLs, does have somewhat of an ataxic gait secondary to his peripheral neuropathy, he is managing his ADLs. He reports he can walk in his home, rarely goes outside secondary to coldness. - Palliative Care Discussion: Patient did meet with oncology, he will continue with his current regimen, he was hoping he was on his "last treatment". He is somewhat distressed by his ongoing pain, he continues to be resistant to increasing his pain medications. Spoke with Shellie, she is needing a work 7 days a week, Marilyn still would like to go back to the [facility] to visit, unclear how this may have occur, both identify multiple stressors in navigating his current journey with chemotherapy, difficulty understanding no "finish". 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 Plan for evaluation with nuclear bone scan, and radiation if identify targets. Will await final results of this prior to changing current regimen.Palliative care continue to provide support for pain and symptom management care coordination psychosocial support and anticipatory guidance. Recommendations/Counseling Done: 1. Pain of neoplastic origin. Patient with history of known bony mets, will follow up with nuclear bone scan secondary to CT scans were noncontributory. Patient may be a candidate for radiation. Patient has been instructed to use his oxycodone more frequently, continues to complain of increased pain that does not follow through with this. Will await outcome of scans, given persistent pain and discomfort will transition to long-acting pain medication if radiation not an option. Concern continues for medication adherence and health literacy/language barriers for initiating stronger opioids in the home. 2. Constipation. This is multifactorial, patient has not been consistent using his senna, does show me he has the pill bottles, has still not gone for 4 days. Appears he only takes these intermittently. Has been instructed to take on a regular basis. Has not initiated MiraLAX. 3. Peripheral neuropathy. Patient continues to demonstrate both numbness, pain is managed at night with pregabalin, reports numbness is increasing along with balance problems. Patient continues on his current regimen, made to need to reevaluate if worsens for dose reduction. Consult with oncology. 4. Hypothyroidism. Had followed up last time with primary care provider Dr. Canales, patient had not had appropriate refills with notable assumption of skipped or missed multiple doses. He did continue the same dosing at 175 mcg, will recheck with next blood draw. 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 Patient may still need an adjustment. Patient does complain of multiple symptoms that are multifactorial, but could be also reflective of his worsening numbers. 5. 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 At this point patient will not be transition to maintenance therapy, and has had pending nuclear bone scan. Palliative care continue to build rapport with patient and given expected trajectory. 45 minutes with Review of scans, labs, coordination of care with oncology, counseling with and patient, follow-up with patient regarding pain and symptom management, continued psychosocial support and anticipatory guidance
== END 2021-12-03 09:35 | disposition home or self-care (01) ==
LOC: PC 09:34
PROVIDERS: ATTEND Nurse Practitioner Adult Health
DX: Z51.5 Encounter for palliative care (principal); G89.3 Neoplasm related pain (acute) (chronic); C18.9 Malignant neoplasm of colon, unspecified; C77.8 Secondary and unspecified malignant neoplasm of lymph nodes of multiple regions; C79.51 Secondary malignant neoplasm of bone; E03.9 Hypothyroidism, unspecified; R06.00 Dyspnea, unspecified; E11.42 Type 2 diabetes mellitus with diabetic polyneuropathy; K59.03 Drug induced constipation; T40.2X5A Adverse effect of other opioids, initial encounter
CPT/HCPCS: 99215

== ENCOUNTER 2021-12-12 09:13 | Outpatient (CLI) | payer MEDICARE ==
--- NOTE | 2021-12-12 17:22 | Nuclear Medicine Report ---
PROCEDURE: Bone Whole Body INDICATIONS: MALIGNANT NEOPLASM OF COLON RADIOPHARMACEUTICAL: 26.9 mCi Tc-99m MDP IV. TECHNIQUE: Delayed whole-body scintigrams were obtained approximately 3-4 hours after intravenous injection of r adiotracer. Anterior and posterior views were acquired from vertex to feet. Additional left and rig ht oblique views of the skull and cervical spine were obtained. COMPARISON: CT chest with contrast, 11/26/2021. CT abdomen and pelvis with contrast, 11/26/2021. FINDINGS: There is increased activity in lower cervical spine and upper thoracic spine, correlating with sclerotic lesions seen on the comparison CT involving 5, C6, C7, and T2 vertebral bodies, consis tent with osseous metastasis. No lesions are identified in skull, sternum, scapulae, clavicles, ribs, bony pelvis and visualized shafts of the long bones. Foci of increased particular care team are note d in shoulders and hips bilaterally, compatible with individual/arthritic changes. IMPRESSION: 1. Abnormal activity in the lower cervical spine and upper thoracic spine consistent with osseous met astasis. Reviewed by: Edgar Shirley MD on 12/12/2021 5:21 PM PDT Approved by: Edgar Shirley MD on 12/12/2021 5:21 PM PDT Station ID: [id number]
== END 2021-12-12 09:14 | disposition home or self-care (01) ==
LOC: DI 09:13
PROVIDERS: ATTEND Internal Medicine
DX: C18.9 Malignant neoplasm of colon, unspecified (principal); C19 Malignant neoplasm of rectosigmoid junction; C79.51 Secondary malignant neoplasm of bone
CPT/HCPCS: 78306

== ENCOUNTER 2021-12-17 09:32 | Outpatient (CLI) | payer MEDICARE | END 2021-12-17 09:33 | disposition home or self-care (01) | LOC: PC 09:32 | PROVIDERS: ATTEND Nurse Practitioner Adult Health | DX: Z53.9 Procedure and treatment not carried out, unspecified reason (principal) ==

== ENCOUNTER 2021-12-31 08:15 | Outpatient (CLI) | payer MEDICARE ==
--- NOTE | 2021-12-31 10:36 | CONSULTATION NOTE ---
Palliative Care Follow Up - Referral Referring Provider: Dr. Cristian Hernandez Time of Visit: 0945 45 minutes Referral setting: [facility] [place] Referral Reason: Pain of neoplastic origin/anorexia/Met Colon CA - Information Sources Records reviewed: RN notes reviewed, Other (f/up radiation) History/Review of Systems obtained from: Patient Exam limitations: Language barrier - History of Present Illness Update Brief HPI Update: This is a cezar 66-year-old [place] gentleman with diagnosis of recurrent colon cancer, with known bony mets, mediastinal right hilar adenopathy, mesenteric mets to the left lower quadrant and right adrenal mass. His CEA was up slightly today from 7.1 to 9.7 from beginning of month. Patient is on pallia tive FOLFIRI plus Avastin and second line setting, and recently has been referred to radiation related to patient's persistent and worsening pain.Patient had a bone scan done for 10/04 that did show abnormal activity in lower cervical spine, upper thoracic spine consistent with bony mets, the bone scan that showed no abnormalities in bony pelvis and his CT showed no evidence of malignancy but patient has been complaining of worsening and significant pain of 8 out of 10. It has impacted his quality of life significantly, and hope was to be able to decrease his opioid load.Unfortunately radiation was unable to find a target but made sense in the context of his exam. Patient on exam does have point tenderness in the left scapular region, worsened with any kind of twisting or pulling. His most significant pain though remains consistent in his complaints in the left groin lower pelvis area and point tenderness in the lower back rib cage area and left hip/pelvic region. Patient takes oxycodone 5 to 10 mg about every 5 hours, with relief, but does cause sedation. Have been hesitant given the language barriers and health literacy, to combine with long acting medication, he does get relief but fluctuates. Patient also experiences peripheral neuropathy, both pain and numbness, with some improvement with pregabalin 50 mg at bedtime for sleep. He does report awakening in pain from his left hip area and often takes pain meds at this time. Patient relays had seen radiation oncology, had to go back secondary to had taken his pain medication. They have not in conversation when called regarding notes, found to target that made sense in patient's exam to radiate. They have scheduled him for a pet scan 01/07. Did relay to patient he will have a scheduled follow-up with radiation oncology after that exam. Patient reports decreasing appetite, and has lost some more weight of 5-8 pounds over last few weeks. Denies nausea except for with chemo, and does report using ondansetron. He reports he is trying to continue his walking program, but is experiencing some increased fatigue. Patient continues to struggle with constipation, but has not been taking his bowel meds consistently. Patient also presents today with hypokalemia 3.3. This is been somewhat persistent, will initiate some potassium replacement.Patient biggest issue is his pain, continues to interfere in his quality of life, and is worrisome to him. Past Medical History: Retinitis pigmentosa, hypertension, hypothyroidism, history of goiter ablation, kidney stones, chronic hearing loss, anxiety, hyperlipidemia Social History - Living Situation Living arrangement: At home Living Situation: With spouse/s.o. Support System: Patient lives in a multifamily household, in the lower level of sister's house. Patient's continues to work, she has been working 7 days a week and quite exhausted at the local [employer]. He tries and helps with household tasks, is disabled secondary to his visual changes with his retinitis pigmentosa. His mother 85 still alive lives in [place], patient was hoping to return to the [facility] but is finding noticed too overwhelming of a task. Patient does need a letter though has some legal issues for January, will provide letter of support. Medications/Allergies - Medications Home Medications: Ambulatory Orders Medication Instructions Recorded Confirmed Atorvastatin Calcium 20 mg PO QPM 03/27/20 12/31/21 Losartan [Cozaar] 50 mg PO DAILY tablet 03/30/20 12/31/21 Lidocaine/Prilocain 2.5% Cream 30 gm TOP DAILY PRN #1 tube 04/17/20 12/31/21 [Emla 2.5% Cream] Levothyroxine [Synthroid] 175 mcg PO QDAC 05/16/21 12/31/21 Loperamide [Imodium] 2 - 4 mg PO Q4HR PRN MDD 8 tabs 05/16/21 12/31/21 OLANZapine [Olanzapine] 5 mg PO .1-4 DAY WITH CHEMO 05/16/21 12/31/21 Ondansetron [Zuplenz] 4 mg PO Q6HR PRN 05/16/21 12/31/21 Senna [Senokot] 1 - 2 tab PO BID PRN 05/16/21 12/31/21 oxyCODONE [Roxicodone] 5 - 10 mg PO Q4H PRN 05/16/21 12/31/21 Pregabalin [Lyrica] 75 mg PO QPM 06/25/21 12/31/21 polyethylene glycoL 3350 [Miralax] 17 gm PO DAILY PRN 30 Days #30 09/17/21 12/31/21 packet Potassium Chloride [Klor-Con 8] 8 meq PO DAILY 12/31/21 12/31/21 dexAMETHasone [Decadron] 2 mg PO DAILY MDD 14 days 12/31/21 12/31/21 - Allergies Allergies/Adverse Reactions: Allergies Allergy/AdvReac Type Severity Reaction Status Date / Time No Known Drug Allergies Allergy Verified 10/15/21 10:28 Review of Systems - Constitutional Constitutional: reports: Fatigue, Chills (complains of being cold), Weight loss - Eyes Eyes: reports: Blurred vision (left eye worsening), Vision loss - Ears, Nose & Throat Ears, Nose & Throat: reports: Hearing loss, Dry mouth. denies: Mouth lesions - Cardiovascular Cardiovascular: reports: Decr. exercise tolerance. denies: Edema - Respiratory Respiratory: reports: SOB with exertion. denies: SOB at rest - Gastrointestinal Gastrointestinal: reports: Abdominal pain, Constipation (let's go 3-4 day), Poor appetite (worsening; worst with chemo), Early satiety - Genitourinary Genitourinary: reports: Frequency - Musculoskeletal Musculoskeletal: reports: Stiffness, Joint pain (left hip discomfort) - Integumentary Integumentary: reports: Dryness - Neurological Neurological: reports: Numbness (persistent in feet; mild in hands fluctuates) - Psychiatric Psychiatric: reports: Anxiety (worried about his worsening pain) - Endocrine Endocrine: reports: Diabetes type 2, Hypothyroidism (thyroid med more consistently; numbers improved; verified and showed me bottle) - Hematologic/Lymphatic Hematologic/Lymph: reports: Anemia (10.7). denies: Recurrent infections - All Other Systems All Other Systems: reports: Reviewed and negative Physical Exam - Vital Signs Temperature: 36.3 C Pulse Rate: 76 Respiratory Rate: 16 Blood Pressure: 147/92 - Physical Exam General Appearance: positive: No acute distress, Alert, Other (does get some sedation with 2 of oxy) Eyes Bilateral: positive: No scleral icterus ENT: positive: No signs of dehydration Neck: positive: Trachea midline Respiratory: positive: No respiratory distress Abdomen: positive: Soft, Tenderness (LUQ), Other Extremities: positive: Full ROM, No pedal edema Neurologic/Psychiatric: positive: Oriented x3, Mood/affect nml, Flat affect Palliative Care - POLST Patient has POLST: No POLST Status: Full Code Pain: Pain worsening, Comment (see HPI) Tiredness/Fatigue: Moderate (4-6) Drowsiness/Sedation: Moderate (4-6) Nausea: Mild (1-3) (with chemo) Anorexia: Moderate (4-6), Weight loss Dyspnea: None Depression: None Anxiety: Moderate (4-6) Feelings of wellbeing/Perceived Quality of Life: Fair, Acceptable Sleep: Variable sleep pattern (related to pain) Constipation: Yes, Opoid induced, Intermittent constipation Performance Status: Patient does have some increased fatigue, but is trying to remain active. Does make effort to walk daily, out front of his house, if it is not too cold. He is able to manage his own ADLs, and does help with some household tasks. 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 After much discussion and teasing out what he needs, will write a letter support that he cannot travel back for his cousin to be [employer] represent him. We will make this available for him when he gets his pump disconnected. Other area of concern is patient's persistent pain, does appear to be impacting his quality of life, and is worried about what it means for his cancer. He does understand that he is getting treatment that is palliative in nature, that they are not going to "fix him", but does continue to hope the doctors can continue to make things better for him. is not present today, she is often very tearful and worries about the future as well. They do not have any advance care planning documents completed, but continue to build rapport in the setting of future decision making. 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 Unfortunately there are no identifiable targets for radiating, but is pending a PET scan 01/07. Patient's pain currently responding to short acting oxycodone, will await final results of outcome of scan prior to changing to long-acting medication secondary to safety concerns. I will add some dexamethasone for both appetite and pain control and increase pregabalin at night.Palliative care continue provide support for pain and symptom management, support, continue to build rapport and provide anticipatory guidance. Recommendations/Counseling Done: 1. Pain of neoplastic origin. Patient with history of known bony mets, at this time does not have any targetable lesions for pain control, is awaiting outcome of PET scan 01/07. Patient is using oxycodone 1-2 tabs every 5 hours, has been given instruction can use more frequently, as it does appear he waits till his pain is fairly severe before taking. Will initiate fentanyl 12 mcg patch if no identifiable targets for radiation. Patient's pain is worsening not improving. Concern regards for medication adherence with health literacy language barriers for initiating stronger opioids in the home, may need to enlist another family member for monitoring. We will go ahead and initiate dexamethasone 2 mg for both appetite and pain control until outcome of scan is known, as well as increase pregabalin 75 mg at bedtime. 2. Constipation. This is multifactorial, patient has not been consistent with his use, this does get confusing know with his intermittent diarrhea from treatment. Does not take MiraLAX on a regular basis, have written down to take 1 senna daily again on a regular basis. Suspect this adds to his discomfort. 3. Weight loss. Patient reports anorexia and decreasing appetite. Does do some Ensure, reports its most severe during time of treatment. Given weight loss over the last couple weeks, we will go ahead and initiate dexamethasone in the setting of both pain and appetite. This will be just short-term, until treatment plan is established. 4. Hypothyroidism. Patient did bring in his thyroid medication, it is 175 mcg. His numbers have improved, we will go ahead and check in the next few weeks to see if continues to improve. 5. Peripheral neuropathy. Patient continues to demonstrate both numbness and pain have been managed with pregabalin at night, we will go ahead and increase as patient is awakening both with some "hot" pain and pain of left hip.Patient is having some increased balance problems, will consult with oncology if needs dose reduction. 6. Recurrent stage IV adenocarcinoma of the colon with mets. At this point patient continues active treatment, in setting of rising CEA. Patient is pending PET scan at [facility] 01/07. Will follow up accordingly. 45 minutes with review of imaging, oncology notes, coordination of care with radiation oncology, counseling for pain and symptom management, psychosocial support and anticipatory guidance.
== END 2021-12-31 08:16 | disposition home or self-care (01) ==
LOC: PC 08:15
PROVIDERS: ATTEND Nurse Practitioner Adult Health
DX: Z51.5 Encounter for palliative care (principal); G89.3 Neoplasm related pain (acute) (chronic); R63.0 Anorexia; R63.4 Abnormal weight loss; E03.9 Hypothyroidism, unspecified; K59.03 Drug induced constipation; T40.2X5A Adverse effect of other opioids, initial encounter; R53.83 Other fatigue; E87.6 Hypokalemia; G62.9 Polyneuropathy, unspecified; C18.7 Malignant neoplasm of sigmoid colon; C79.51 Secondary malignant neoplasm of bone; C78.6 Secondary malignant neoplasm of retroperitoneum and peritoneum; Z79.891 Long term (current) use of opiate analgesic; Z79.899 Other long term (current) drug therapy
CPT/HCPCS: 99215

== ENCOUNTER 2022-02-04 09:11 | Outpatient (CLI) | payer MEDICARE ==
--- NOTE | 2022-02-04 11:07 | CONSULTATION NOTE ---
Palliative Care Follow Up - Referral Referring Provider: Dr. Cristian Hernandez Time of Visit: 0945 60 min Referral setting: [facility] [place] Referral Reason: Pain of neoplastic origin/radiation esophagitis/dehyrdation/Met Colon CA - Information Sources Records reviewed: Previous records reviewed History/Review of Systems obtained from: Patient Exam limitations: Language barrier - History of Present Illness Update Brief HPI Update: This is a 66-year-old French gentleman with diagnosis of recurrent colon cancer, with known bony mets, mediastinal right hilar adenopathy, mesenteric mets to the left lower quadrant and right adrenal mass. His CEA had decreased back down to 8.2 again, but had received radiation for 14 days to cervical and thoracic scan. Patient though complaining of severe lower quadrant pain, had last taken 10 mg oxycodone at 5:00, just had taken some prior to our visit time, also had warm packs on. Reports pain has been escalating, pain medication not lasting for 4 to 5 hours, is asking to take 15 mg at a time. Patient also complaining of severe pain and sore throat, secondary radiation. Reports he is not swallowing, is only taking sips. Patient has had about a 15 to 20 pound weight loss, over the last couple weeks, reports "I cannot eat" and reports diminished fluid intake as well. After much discussion, it appears he is taking about 60 mg plus of oxycodone, this would be about 80 mg of equivalent. Patient in agreement to take long- acting medication, we will go ahead and order MS Contin 30 mg twice daily, has been instructed still can use oxycodone as needed, but will most likely not once he starts it. Did have him repeat and revisited this information multiple times.Instructions provided as well.Patient is also using lidocaine every 3 hours, reports it is not helping much, but encouraged to continue to use this, reassured that this will continue to heal. Given patient's poor intake, will make arrangements for him receive 1 L of fluids today, as well as on return Wednesday. Patient has been encouraged to take Ensure, soups, and sip on fluids frequently. Past Medical History: Tinnitus pigmentosa, hypertension, hypothyroidism, history of goiter ablation, kidney stones, chronic hearing loss, anxiety, hyperlipidemia Social History - Living Situation Living arrangement: At home Living Situation: With spouse/s.o. Support System: Lives in a multifamily is a multifamily household, in the lower level of his sister's house. Patient's continues to work she has been working 7 days a week unfortunately since he used she is working 12 hours a day and its been very difficult. He has felt very poorly with weight loss, increased pain, and now difficulty eating. His [id number] to continue radiation. Patient is feeling discouraged and in significant distress with his pain today. Medications/Allergies - Medications Home Medications: Ambulatory Orders Medication Instructions Recorded Confirmed Atorvastatin Calcium 20 mg PO QPM 03/27/20 02/04/22 Losartan [Cozaar] 50 mg PO DAILY tablet 03/30/20 02/04/22 Lidocaine/Prilocain 2.5% Cream 30 gm TOP DAILY PRN #1 tube 04/17/20 02/04/22 [Emla 2.5% Cream] Levothyroxine [Synthroid] 175 mcg PO QDAC 05/16/21 02/04/22 Loperamide [Imodium] 2 - 4 mg PO Q4HR PRN MDD 8 tabs 05/16/21 02/04/22 OLANZapine [Olanzapine] 5 mg PO .1-4 DAY WITH CHEMO 05/16/21 02/04/22 Ondansetron [Zuplenz] 4 mg PO Q6HR PRN 05/16/21 02/04/22 Senna [Senokot] 1 - 2 tab PO BID PRN 05/16/21 02/04/22 oxyCODONE [Roxicodone] 5 - 10 mg PO Q4H PRN 05/16/21 02/04/22 polyethylene glycoL 3350 [Miralax] 17 gm PO DAILY PRN 30 Days #30 09/17/21 02/04/22 packet Lidocaine Viscous 2% [Xylocaine 5 ml PO Q4HR PRN 02/04/22 02/04/22 Viscous 2%] Morphine Sulfate ER [Ms Contin] 30 mg PO BID 02/04/22 02/04/22 Pregabalin [Lyrica] 75 mg PO QPM #60 cap NS 02/04/22 02/04/22 - Allergies Allergies/Adverse Reactions: Allergies Allergy/AdvReac Type Severity Reaction Status Date / Time No Known Drug Allergies Allergy Verified 10/15/21 10:28 Review of Systems - Constitutional Constitutional: reports: Fatigue, Chills, Weakness, Poor appetite, Weight loss - Eyes Eyes: reports: Blurred vision (left eye worsening), Vision loss - Ears, Nose & Throat Ears, Nose & Throat: reports: Hearing loss, Dry mouth, Other (throat pain related to radiation) - Cardiovascular Cardiovascular: reports: Decr. exercise tolerance. denies: Edema - Respiratory Respiratory: reports: SOB with exertion. denies: SOB at rest - Gastrointestinal Gastrointestinal: reports: Abdominal pain (severe LLL), Constipation, Poor appet ite - Musculoskeletal Musculoskeletal: reports: Stiffness, Joint pain (left hip discomfort) - Integumentary Integumentary: reports: Dryness - Neurological Neurological: reports: Numbness (persistent in feet; mild in hands fluctuates) - Psychiatric Psychiatric: reports: Depression, Anxiety (worried about his worsening pain) - Endocrine Endocrine: reports: Diabetes type 2, Hypothyroidism (thyroid med more consistently; numbers improved; verified and showed me bottle) - Hematologic/Lymphatic Hematologic/Lymph: reports: Anemia (11.4). denies: Recurrent infections - All Other Systems All Other Systems: reports: Reviewed and negative Physical Exam - Vital Signs Pulse Rate: 76 Respiratory Rate: 18 O2 Saturation: 98 Blood Pressure: 167/94 - Physical Exam General Appearance: positive: Alert, Moderate distress, Anxious, Cachetic Eyes Bilateral: positive: Normal inspection ENT: positive: Other (pain noted when trying to swallow). negative: Pharyngeal erythema, Oral lesions Neck: positive: Trachea midline Respiratory: positive: No respiratory distress Abdomen: positive: Soft, Tenderness (LLQ) Skin: positive: Dryness Extremities: positive: Full ROM, No pedal edema, Other Neurologic/Psychiatric: positive: Oriented x3, Weakness, Depressed mood/affect, Flat affect Palliative Care - POLST Patient has POLST: No POLST Status: Full Code Pain: Pain worsening, Location (LLQ/throat) Feelings of wellbeing/Perceived Quality of Life: Fair, Worsening, Comment (worsening pain) Sleep: Variable sleep pattern Constipation: Yes, Opoid induced, Intermittent constipation Performance Status: Patient has been more pain and more fatigued when influencing his activity level. He still tries to walk, but has been very weak over the last few days" has been able to eat" so has had some muscle mass lost as well. - Palliative Care Discussion: Patient is quite distressed by his escalating pain, is feeling discouraged with his weight loss and not able to eat. In previous conversations being able to eat was significant as far as an indicator whether he was dying or not. Reassured that he is just temporary, that the radiation he should improve in the next few days, continues a lidocaine, and trying to keep fluids going. Patient verbalized understanding, reviewed pain regimen multiple times to encourage him we can get his pain better controlled. He has been instructed to call if he has any side effects or problems with the medication, he will be seeing the [facility] [place] clinic nurses on Wednesday, they can do a follow-up check as well. 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 He did have radiation, after PET scan 01/07 though currently has still escalating pain and did not receive it to his left lower quadrant. Patient has been taking higher doses of opioids, morphine equivalent of 60 mg. We will go ahead and order long-acting. Palliative care continue provide support for pain and symptom management, providing anticipatory guidance. Recommendations/Counseling Done: 1. Pain of neoplastic origin. Patient will go ahead and start MS Contin 30 mg twice daily, ordered at [facility]. Written instructions provided. Instructed to take morning and bedtime. He can still use oxycodone 5 to milligrams 1-2 tabs as needed for breakthrough pain but tried to reassure when starting morphine may not need much oxycodone. We also discussed continued use of the lidocaine for swallowing pain, he also received dexamethasone 10 mg through oncology today. 2. Constipation. This is multifactorial, patient has been not consistent in use, has not had a BM for 2 days, does have senna as well as MiraLAX. Reviewed use again. He reports he is taking 1 tab in the morning and night, and instructed to increase to 2 tabs a.m. and p.m. 3. Weight loss. Patient continues with weight loss, with anorexia and decreasing appetite, this was worsened by his difficulty with swallowing. Patient also presents now with dehydration, will receive 1 L of normal saline along with his treatment, as well as 1 L on Wednesday. Counseling provided regarding continued use of the Ensure 2-3 times a day, he did get a free case from radiation, as well as looking at symptoms and frequent sips of fluid through the day. 4. Peripheral neuropathy. Patient continues to demonstrate both numbness and pain, reports he is sleeping better with the pregabalin as far as his foot discomfort. 5. 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 Patient did have a drop in his CEA though he did get his radiation to some of his tumor burden, will see if he can get copy of PET scan done 01/07 at [facility]. 60 minutes review oncology notes, labs, coordination with oncology team, instruction reinstruction on pain management, written instructions provided, anticipatory guidance, and ongoing building of rapport. /
== END 2022-02-04 09:12 | disposition home or self-care (01) ==
LOC: PC 09:11
PROVIDERS: ATTEND Nurse Practitioner Adult Health
DX: Z51.5 Encounter for palliative care (principal); G89.3 Neoplasm related pain (acute) (chronic); R63.4 Abnormal weight loss; R63.0 Anorexia; Z79.899 Other long term (current) drug therapy; Z79.891 Long term (current) use of opiate analgesic; C79.51 Secondary malignant neoplasm of bone; C78.6 Secondary malignant neoplasm of retroperitoneum and peritoneum; C18.9 Malignant neoplasm of colon, unspecified; R53.83 Other fatigue; R53.1 Weakness; Z92.3 Personal history of irradiation; R13.10 Dysphagia, unspecified; K20.80 Other esophagitis without bleeding; Y84.2 Radiological procedure and radiotherapy as the cause of abnormal reaction of the patient, or of later complication, without mention of misadventure at the time of the procedure; K59.03 Drug induced constipation; T40.2X5A Adverse effect of other opioids, initial encounter
CPT/HCPCS: 99215

== ENCOUNTER 2022-02-10 12:10 | Outpatient (CLI) | payer MEDICARE ==
--- NOTE | 2022-02-10 15:57 | CONSULTATION NOTE ---
Palliative Care Follow Up - Referral Referring Provider: Dr. Cristian Hernandez Time of Visit: 1210 45 minutes Referral setting: [facility] Referral Reason: dehydration/radiation esophagitis/pain of neoplastic origin/Met colon CA - Information Sources Records reviewed: Previous records reviewed History/Review of Systems obtained from: Patient, Family (Shellie his on phone) Exam limitations: Clinical condition (feeling poorly), Language barrier - History of Present Illness Update Brief HPI Update: This is a 66-year-old [place] gentleman with diagnosis of recurrent colon cancer, with known bony mets, mediastinal right hilar adenopathy, mesenteric mets to left lower quadrant and right adrenal mass. He did receive radiation for 14 days to cervical and thoracic area, unfortunately has developed radiation esophagitis. This is not improved. Patient called this morning with still having difficulty swallowing, decreased intake, has had weight loss of 5 kg over 6 days, and continues with nausea and vomiting. The vomiting though is not food stuff, it is clear fluid, suspected saliva patient having trouble swallowing. P atient reports he is urinating, yellow urine, bowels have been moving, and trying to discern what he is taking for his nausea, I suspect its been olanzapine. He reported he took the ondansetron only 1 time last night, has not been taking it over the weekend. His pain in his left lower quadrant is better controlled on MS Contin 30 mg twice daily, has only needed to use his oxycodone 5 mg 2-3 times a day and 1 tab at a time. Patient appears quite miserable, and somewhat perplexed by all of this. Made arrangements for patient to make another liter of fluids, and check his potassium as he is also reports diarrhea for 2 to 3 days as a result of his recent chemo and 5-FU infusion. Patient encouraged to go the emergency room, patient gets overwhelmed by all medical encounters and declined. Agreed to evaluation and fluids and MAC. Past Medical History: Retinitis pigmentosa, hypertension, hypothyroidism, history of goiter ablation, kidney stones, chronic hearing loss, anxiety, hyperlipidemia Social History - Living Situation Living arrangement: At home Living Situation: With spouse/s.o. Support System: Patient lives in a multifamily household, in the lower level of his sister's house. Patient's continues to work, has been working long hours and it has been difficult. Patient does require transportation, brought him today. Patient is feeling quite discouraged Medications/Allergies - Medications Home Medications: Ambulatory Orders Medication Instructions Recorded Confirmed Atorvastatin Calcium 20 mg PO QPM 03/27/20 02/10/22 Losartan [Cozaar] 50 mg PO DAILY tablet 03/30/20 02/10/22 Lidocaine/Prilocain 2.5% Cream 30 gm TOP DAILY PRN #1 tube 04/17/20 02/10/22 [Emla 2.5% Cream] Levothyroxine [Synthroid] 175 mcg PO QDAC 05/16/21 02/10/22 Loperamide [Imodium] 2 - 4 mg PO Q4HR PRN MDD 8 tabs 05/16/21 02/10/22 OLANZapine [Olanzapine] 5 mg PO .1-4 DAY WITH CHEMO 05/16/21 02/10/22 Ondansetron [Zuplenz] 4 mg PO Q6HR PRN 05/16/21 02/10/22 Senna [Senokot] 1 - 2 tab PO BID PRN 05/16/21 02/10/22 oxyCODONE [Roxicodone] 5 - 10 mg PO Q4H PRN 05/16/21 02/10/22 polyethylene glycoL 3350 [Miralax] 17 gm PO DAILY PRN 30 Days #30 09/17/21 02/10/22 packet Lidocaine Viscous 2% [Xylocaine 5 ml PO Q4HR PRN 02/04/22 02/10/22 Viscous 2%] Morphine Sulfate ER [Ms Contin] 30 mg PO BID 02/04/22 02/10/22 Pregabalin [Lyrica] 75 mg PO QPM #60 cap NS 02/04/22 02/10/22 Sucralfate [Carafate] 1 gm PO TID MDD slurry 02/10/22 02/10/22 - Allergies Allergies/Adverse Reactions: Allergies Allergy/AdvReac Type Severity Reaction Status Date / Time No Known Drug Allergies Allergy Verified 10/15/21 10:28 Review of Systems - Constitutional Constitutional: reports: Fatigue (feeling poorly sleeping more), Chills, Weight loss (57.7) - Eyes Eyes: reports: Blurred vision (left eye worsening), Vision loss - Ears, Nose & Throat Ears, Nose & Throat: reports: Hearing loss, Hoarseness. denies: Mouth lesions - Cardiovascular Cardiovascular: reports: Decr. exercise tolerance. denies: Edema, Lightheadedness - Respiratory Respiratory: reports: SOB with exertion. denies: SOB at rest - Gastrointestinal Gastrointestinal: reports: Diarrhea (over weekend), Nausea (persistent), Vomiting (clear fluid/saliva), Poor appetite, Other (difficulty swallowing). denies: Abdominal pain (improved) - Musculoskeletal Musculoskeletal: reports: Stiffness, Muscle weakness, Joint pain (left hip disc omfort) - Integumentary Integumentary: reports: Dryness - Neurological Neurological: reports: General weakness, Numbness (persistent in feet; mild in hands fluctuates) - Psychiatric Psychiatric: reports: Depression, Anxiety - Endocrine Endocrine: reports: Diabetes type 2, Hypothyroidism (thyroid med more consistently; numbers improved; verified and showed me bottle) - Hematologic/Lymphatic Hematologic/Lymph: reports: Anemia (11.4). denies: Recurrent infections - All Other Systems All Other Systems: reports: Reviewed and negative Physical Exam - Vital Signs Temperature: 36.6 C Pulse Rate: 80 Respiratory Rate: 18 Blood Pressure: 147/80 - Physical Exam General Appearance: positive: Moderate distress, Anxious, Cachetic Eyes Bilateral: positive: Normal inspection ENT: negative: No signs of dehydration Neck: positive: Trachea midline. negative: Lymphadenopathy (R), Lymphadenopathy (L) Respiratory: positive: No respiratory distress Abdomen: positive: Soft, Tenderness (LLQ improved), Other (vomiting clear phelgm/dry heaves) Skin: positive: Pallor, Dryness Extremities: positive: No pedal edema Neurologic/Psychiatric: positive: Oriented x3, Weakness, Depressed mood/affect, Flat affect Palliative Care - POLST Patient has POLST: No Pain: Pain improved, Location (LLQ abdominal pain and shoulder; using less oxycodone; pain in throat no better or worse) Tiredness/Fatigue: Severe (7-10) Drowsiness/Sedation: Moderate (4-6) Nausea: Severe (7-10), With vomiting Anorexia: Severe (7-10), Weight loss Dyspnea: Mild (1-3) Depression: Moderate (4-6) Anxiety: Moderate (4-6) Feelings of wellbeing/Perceived Quality of Life: Poor, Worsening Sleep: Variable sleep pattern Constipation: No Performance Status: Patient reports is still ambulatory, is still trying to keep walking. We did discuss feels dizzy though he needed to use his walker. He is sleeping quite a bit, as he does not feel well. - Palliative Care Discussion: Positive reinforcement given for reaching out, patient is hesitant to interact with healthcare system. He is quite anxious, as is feeling quite miserable. Patient is worried as he cannot eat, and feeling very depressed and overwhelmed. Results - Lab Results Lab results reviewed: Yes Lab and Imaging Results: k 3.1 Impression and Recommendations - Palliative Care Impression: This is a 66-year-old gentleman with recurrent stage IV sigmoid cancer colon, with persistent symptoms regarding radiation esophagitis, thus presenting today with nausea and vomiting, hypokalemia, and worsening difficulty with throat pain. Patient recently started on long-acting long-acting MS Contin 30 mg twice daily with improvement of left lower quadrant pain and left shoulder thoracic back pain. Patient with significant weight loss over the last several days, related to decreased intake. Palliative care providing support for acute and increasing symptom burden related to of treatment side effects and malignancy. Recommendations/Counseling Done: 1. Radiation esophagitis. Patient continues with persistent difficulty swallowing, now with increasing nausea and vomiting most likely multifactorial. Patient has been using intermittent lidocaine, opioids did not affect the pain experience for him with swallowing. Does appear he is vomiting up with dry heaves but only saliva. Patient with decreased intake, reports has been taking rice soup and pured lizeth, but only few small bites but is working on sipping on fluids. We will go ahead and give him 1 L of normal saline. After discussion with dietitian, will initiate Carafate slurry 1 g 3 times a day, patient to be instructed on making of slurry and taking prior to eating, will order for 10 days. 2. Nausea and vomiting. This is multifactorial, patient with recent completion of chemotherapy, due to a language barrier is not quite sure what he is taken, it sounds like he did take olanzapine for few nights, but has not been using ondansetron. Had taken ondansetron prior to arrival, but continues with dry heaves and vomiting. Compazine 10 mg IV given. Patient has been instructed to take his ondansetron 4 mg 4 times a day for the next few days until things are improved. Patient is to call for arrangements for fluids if needed or if worsening status to go the emergency room. Patient verbalized understanding. 3. BMP checked secondary to patient's report of diarrhea, patient does have hypokalemia 3.1, will receive 20 mEq of potassium today. 4. Weight loss. Patient continues with weight loss with anorexia, nausea and vomiting, decreased appetite and difficulty with swallowing. Counseling provided again regarding the use of Ensure,. Soups and soft foods, encouraged to add Gatorade or caloric fluids. Patient is instructed to try and take something every 2-3 hours, as well as sips of fluids frequently. 5. 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 Patient with worsening side effects of treatment regimen, remains quite frail and high risk for hospitalization. 45 minutes of care 50% of this time in counseling regarding management of current regimen, nausea and vomiting, pain, encouragement of pushing fluids and pured diet, small frequent feedings, reviewed medication management again, and coordination of care with oncology staff
== END 2022-02-10 12:11 | disposition home or self-care (01) ==
LOC: PC 12:10
PROVIDERS: ATTEND Nurse Practitioner Adult Health
DX: Z51.5 Encounter for palliative care (principal); K20.80 Other esophagitis without bleeding; Y84.2 Radiological procedure and radiotherapy as the cause of abnormal reaction of the patient, or of later complication, without mention of misadventure at the time of the procedure; R07.0 Pain in throat; R13.10 Dysphagia, unspecified; Z79.899 Other long term (current) drug therapy; Z79.891 Long term (current) use of opiate analgesic; G89.3 Neoplasm related pain (acute) (chronic); R19.7 Diarrhea, unspecified; R53.83 Other fatigue; R53.1 Weakness; R11.2 Nausea with vomiting, unspecified; T45.1X5A Adverse effect of antineoplastic and immunosuppressive drugs, initial encounter; E86.0 Dehydration; E87.6 Hypokalemia; R63.4 Abnormal weight loss; R63.0 Anorexia; C18.7 Malignant neoplasm of sigmoid colon; C79.51 Secondary malignant neoplasm of bone; C78.6 Secondary malignant neoplasm of retroperitoneum and peritoneum; Z92.3 Personal history of irradiation
CPT/HCPCS: 99215

== ENCOUNTER 2022-03-09 20:40 | Emergency (ER) | payer MEDICARE ==
[2022-03-09] MEDS ORDERED: SODIUM CHLORIDE 0.9% 1,000 ML IV STA (21:05)
[2022-03-09] MEDS ORDERED: ONDANSETRON 4 MG/2 ML VIAL IVP STA (21:05)
--- OUTSIDE RECORDS SUMMARY | 2022-03-09 21:22 | EXTERNAL MEDICAL SUMMARY RPT | Continuity of Care Document ---
:1955 Author Organization [facility] Address [address] [place] [address] Phone Allergies No information. Encounters No information. Functional Status No information. Immunizations No information. Medications No information. Problems No information. Procedures No information. Results/Labs test date author facility value unit interpret ation Result panel 1 (unknown) (no (unknown) (unknown) (no value) (units (unk nown) date) unknown) (unknown) (no (unknown) (unknown) [address] [place] [address] (units (unknown) date) unknown) (unknown) (no (unknown) (unknown) [place] [address] (unit s (unknown) date) unknown) (unknown) (no (unknown) (unknown) [facility] (units (unknown) date) unknown) (unknown) (no (unknown) (unknown) [facility] (units (unknown) date) Report unknown) (unknown) (no (unknown) (unknown) Signed (units (unkno wn) date) unknown) (unknown) (no (unknown) (unknown) (no value) (units (unk nown) date) unknown) (unknown) (no (unknown) (unknown) (maximum SUV 3.6), (units (unknown) date) most likely benign. unknown) Aorta and inferior vena cava are normal (unknown) (no (unknown) (unknown) 01/07/22 (units (unkno wn) date) unknown) (unknown) (no (unknown) (unknown) 1. A mildly (units (un known) date) enlarged left unknown) para-aortic lymph node demonstrating abnormal FDG (unknown) (no (unknown) (unknown) 2. Multiple (units (un known) date) hypermetabolic unknown) lesions are identified in the lower cervical spine (unknown) (no (unknown) (unknown) 11/26/2021, 11:03. (units (unknown) date) Outside Film, CT, CT unknown) CHEST WITH CONTRAST, 11/26/2021, 11:03. (unknown) (no (unknown) (unknown) 7.9), consistent (units (unknown) date) with a metastatic unknown) lymph node. (unknown) (no (unknown) (unknown) Abdomen and pelvis: (unit s (unknown) date) There is a mildly unknown) enlarged left para-aortic lymph node in (unknown) (no (unknown) (unknown) After intravenous (units (unknown) date) administration of unknown) F-18 fluoro-deoxyglucose (FDG), noncontrast (unknown) (no (unknown) (unknown) Approved by: Edgar (units (unknown) date) Prabhu Shirley on unknown) 01/07/2022 at 15:05 (unknown) (no (unknown) (unknown) Bones: (units (unkno wn) date) Hypermetabolic bone unknown) lesions are seen in C6, C7, T1, T2, T3 and T4 (unknown) (no (unknown) (unknown) COMPARISON: (units (un known) date) Outside Film, CT, CT unknown) ABDOMEN PELVIS WITH CONTRAST, 05/10/2020, (unknown) (no (unknown) (unknown) Dictated by: Edgar (units (unknown) date) Prabhu Shirley on unknown) 01/07/2022 at 14:42 (unknown) (no (unknown) (unknown) FINDINGS: (units (unkn own) date) unknown) (unknown) (no (unknown) (unknown) Film, CT, CT (units (u nknown) date) ABDOMEN PELVIS WITH unknown) CONTRAST, 02/15/2020, 16:53. Outside Film, CT, (unknown) (no (unknown) (unknown) Film, NM, NM BONE (units (unknown) date) SCAN WHOLE BODY, unknown) 12/12/2021, 13:08. (unknown) (no (unknown) (unknown) Head and neck: No (units (unknown) date) soft tissue masses unknown) in the neck. No enlarged cervical or (unknown) (no (unknown) (unknown) Heart size is (units ( unknown) date) normal. No unknown) pericardial effusion. (unknown) (no (unknown) (unknown) IMPRESSION: (units (un known) date) unknown) (unknown) (no (unknown) (unknown) INDICATIONS: (units (u nknown) date) RESTAGING COLON unknown) CANCER (unknown) (no (unknown) (unknown) [id number] (units (unk nown) date) unknown) (unknown) (no (unknown) (unknown) No free fluid or (units (unknown) date) air. No pelvic or unknown) inguinal adenopathy. Bladder wall (unknown) (no (unknown) (unknown) RADIOPHARMACEUTICAL (unit s (unknown) date) : 10.7 mCi F-18 unknown) fluorodeoxyglucose IV. (unknown) (no (unknown) (unknown) TECHNIQUE: (units (unk nown) date) unknown) (unknown) (no (unknown) (unknown) There is normal (units (unknown) date) heterogeneous unknown) hepatic tracer uptake. Liver is normal in size, (unknown) (no (unknown) (unknown) Thorax: No (units (un known) date) enlarged unknown) mediastinal, hilar, or axillary lymph nodes. No abnormal (unknown) (no (unknown) (unknown) WITH CONTRAST, (units (unknown) date) 08/18/2021, 9:06. unknown) Outside Film, CT, CT ABDOMEN PELVIS WITH (unknown) (no (unknown) (unknown) bodies, and the (units (unknown) date) left posterior unknown) element of C7, correlating with mixed lytic and (unknown) (no (unknown) (unknown) bone lesion seen on (unit s (unknown) date) the comparison CT unknown) and increased MDP uptake on bone scan, (unknown) (no (unknown) (unknown) concentric (units (unk nown) date) thickening at the unknown) rectosigmoid junction, demonstrating low level FDG (unknown) (no (unknown) (unknown) consistent with (units (unknown) date) blanca metastasis. unknown) (unknown) (no (unknown) (unknown) focal masses. The (units (unknown) date) spleen is normal in unknown) size. Gallbladder is absent. Pancreas (unknown) (no (unknown) (unknown) glands appear (units ( unknown) date) normal. Sinuses and unknown) mastoids are clear. (unknown) (no (unknown) (unknown) glucose level as (units (unknown) date) measured by unknown) glucometer was 90 mg/dl. The area imaged spanned (unknown) (no (unknown) (unknown) in morphology. No (units (unknown) date) adrenal nodules. unknown) Kidneys are normal in size, without (unknown) (no (unknown) (unknown) indeterminate but (units (unknown) date) could represent unknown) early metastasis. (unknown) (no (unknown) (unknown) normal. Prostate (units (unknown) date) is enlarged. unknown) (unknown) (no (unknown) (unknown) or nephrolithiasis. (unit s (unknown) date) Small and large unknown) intestines are normal in caliber. There (unknown) (no (unknown) (unknown) overlapping (units (un known) date) emission PET images unknown) was then obtained. The patient's pretest (unknown) (no (unknown) (unknown) supraclavicular (units (unknown) date) lymph nodes; no unknown) abnormal blanca tracer uptake. Salivary and (unknown) (no (unknown) (unknown) thoracic spine, (units (unknown) date) consistent with unknown) osseous metastases. (unknown) (no (unknown) (unknown) tracer uptake. No (units (unknown) date) acute pulmonary unknown) opacities. No pleural effusions or (unknown) (no (unknown) (unknown) upper abdomen (units ( unknown) date) measuring 0.8 x 1.2 unknown) cm and demonstrating increased FDG uptake (unknown) (no (unknown) (unknown) vertex to the upper (unit s (unknown) date) thighs. unknown) (unknown) (no (unknown) (unknown) were obtained for (units (unknown) date) attenuation unknown) correction and anatomic localization. A series (unknown) (no (unknown) (unknown) with osseous (units (u nknown) date) metastases. unknown) Low-level increased uptake L2 vertebral body (maximum (unknown) (no (unknown) (unknown) (maximum SUV (units (u nknown) date) unknown) (unknown) (no (unknown) (unknown) 9:56. Outside (units (unknown) date) unknown) (unknown) (no (unknown) (unknown) Accession Number: (units (unknown) date) [id number] unknown) (unknown) (no (unknown) (unknown) Age/Sex: 66 / M (units (unknown) date) Date of Service: unknown) (unknown) (no (unknown) (unknown) CONTRAST, (units (unkn own) date) unknown) (unknown) (no (unknown) (unknown) CT CHEST (units (unkno wn) date) unknown) (unknown) (no (unknown) (unknown) CT images (units (unkn own) date) unknown) (unknown) (no (unknown) (unknown) : 1955 (units (unknown) date) Acct:[id number] unknown) (unknown) (no (unknown) (unknown) Loc: [facility] (units (unkn own) date) unknown) (unknown) (no (unknown) (unknown) Ordering Provider: (units (unknown) date) Kemar Raza MD unknown) (unknown) (no (unknown) (unknown) Outside (units (unkno wn) date) unknown) (unknown) (no (unknown) (unknown) PROCEDURE: NM PET (unit s (unknown) date) CT FUSION SKULL 2 unknown) THIGH (unknown) (no (unknown) (unknown) Patient: (units (unkno wn) date) Hortensia Mares unknown) MR#: (unknown) (no (unknown) (unknown) Procedure: NM PET (units (unknown) date) CT fusion skull 2 unknown) thigh (unknown) (no (unknown) (unknown) SUV 3.1), (units (unkn own) date) unknown) (unknown) (no (unknown) (unknown) activity (units (unkno wn) date) unknown) (unknown) (no (unknown) (unknown) and upper (units (unkn own) date) unknown) (unknown) (no (unknown) (unknown) consistent (units (unk nown) date) unknown) (unknown) (no (unknown) (unknown) fasting blood (units ( unknown) date) unknown) (unknown) (no (unknown) (unknown) from the (units (unkno wn) date) unknown) (unknown) (no (unknown) (unknown) hydronephrosis (units (unknown) date) unknown) (unknown) (no (unknown) (unknown) in size. (units (unkno wn) date) unknown) (unknown) (no (unknown) (unknown) is mild (units (unkno wn) date) unknown) (unknown) (no (unknown) (unknown) is normal (units (unkn own) date) unknown) (unknown) (no (unknown) (unknown) blanca (units (unkno wn) date) unknown) (unknown) (no (unknown) (unknown) of (units (unkno wn) date) unknown) (unknown) (no (unknown) (unknown) pneumothorax. (units ( unknown) date) unknown) (unknown) (no (unknown) (unknown) sclerotic (units (unkn own) date) unknown) (unknown) (no (unknown) (unknown) the left (units (unkno wn) date) unknown) (unknown) (no (unknown) (unknown) thickness is (units (u nknown) date) unknown) (unknown) (no (unknown) (unknown) thyroid (units (unkno wn) date) unknown) (unknown) (no (unknown) (unknown) vertebral (units (unkn own) date) unknown) (unknown) (no (unknown) (unknown) without (units (unkno wn) date) unknown) Social History No information. Vital Signs No information.
--- NOTE | 2022-03-09 21:48 | ED Physician Documentation ---
History of Present Illness - Stated complaint Stated Complaint: DIZZY,VOMIT - Chief complaint Chief Complaint: General - History obtained from History obtained from: Patient, Family - Additonal information Additional information: Patient is a 66-year-old male with a history of colon cancer (currently undergoing chemo) presenting for evaluation of weakness, nausea and vomiting for 5 days. Patient states his last chemo was 2 weeks ago when he is scheduled to have another treatment this Wednesday. For the last 5 days he has not been able to tolerate much p.o. intake despite use of home Zofran. He has been feeling weakness and lightheadedness. He denies vertigo, Sensation of falling or spinning. He has had a history of abdominal surgery. He does report having ongoing left-sided abdominal pain and uses morphine at home for pain control. He denies dysuria or hematuria or back pain. He denies a headache. He denies blood in his emesis Or in his stools. He denies any known sick exposures. Review of Systems Constitutional: denies: Fever Nose: denies: Congestion Cardiac: denies: Chest pain / pressure Respiratory: denies: Dyspnea, Cough GI: reports: Abdominal Pain, Nausea, Vomiting. denies: Constipation, Bloody / black stool : denies: Dysuria Skin: denies: Rash Musculoskeletal: denies: Back pain Neurologic: reports: Generalized weakness. denies: Headache PD PAST MEDICAL HISTORY - Past Medical History Cardiovascular: Hypertension, High cholesterol Respiratory: None Neuro: None Endocrine/Autoimmune: HyPOthyroidism GI: Other : Frequency, Kidney stones HEENT: Chronic vision loss, Chronic hearing loss Psych: Anxiety Musculoskeletal: Fatigue Derm: None - Past Surgical History Past Surgical History: Yes General: Bowel surgery, Colonoscopy, Other Ortho: Other HEENT: Cataracts - Present Medications Home Medications: Ambulatory Orders Medication Instructions Recorded Confirmed Atorvastatin Calcium 20 mg PO QPM 03/27/20 02/25/22 Losartan [Cozaar] 50 mg PO DAILY tablet 03/30/20 02/25/22 Lidocaine/Prilocain 2.5% Cream 30 gm TOP DAILY PRN #1 tube 04/17/20 02/25/22 [Emla 2.5% Cream] Levothyroxine [Synthroid] 175 mcg PO QDAC 05/16/21 02/25/22 Loperamide [Imodium] 2 - 4 mg PO Q4HR PRN MDD 8 tabs 05/16/21 02/25/22 OLANZapine [Olanzapine] 5 mg PO .1-4 DAY WITH CHEMO 05/16/21 02/25/22 Ondansetron [Zuplenz] 4 mg PO Q6HR PRN 05/16/21 02/25/22 Senna [Senokot] 1 - 2 tab PO BID PRN 05/16/21 02/25/22 oxyCODONE [Roxicodone] 5 - 10 mg PO Q4H PRN 05/16/21 02/25/22 polyethylene glycoL 3350 [Miralax] 17 gm PO DAILY PRN 30 Days #30 09/17/21 02/25/22 packet Lidocaine Viscous 2% [Xylocaine 5 ml PO Q4HR PRN 02/04/22 02/25/22 Viscous 2%] Morphine Sulfate ER [Ms Contin] 30 mg PO BID 02/04/22 02/25/22 Pregabalin [Lyrica] 75 mg PO QPM #60 cap NS 02/04/22 02/10/22 Sucralfate [Carafate] 1 gm PO TID MDD slurry 02/10/22 02/25/22 - Allergies Allergies/Adverse Reactions: Allergies Allergy/AdvReac Type Severity Reaction Status Date / Time No Known Drug Allergies Allergy Verified 02/25/22 09:22 - Social History Does the pt smoke?: No Smoking Status: Former smoker Does the pt drink ETOH?: No Does the pt have substance abuse?: No - Immunizations Immunizations are current?: Yes - POLST Patient has POLST: No PD ED PE NORMAL - General General: Alert and oriented X 3, No acute distress, Other (Chronically ill- appearing) - HEENT HEENT: Atraumatic, Moist mucous membranes, Pharynx benign - Neck Neck: Supple, no meningeal sign - Cardiac Cardiac: RRR, No murmur, Strong equal pulses - Respiratory Respiratory: No respiratory distress, Clear bilaterally - Abdomen Abdomen: Normal bowel sounds, Soft, Non distended, Other (Left-sided abdominal tenderness to palpation, well-healed surgical incision; No rebound, no guarding, no peritoneal signs) - Derm Derm: Warm and dry - Extremities Extremities: No edema - Neuro Neuro: Alert and oriented X 3, dental surgeon 2-12 intact, No motor deficit, Normal speech Eye Opening: Spontaneous Motor: Obeys Commands Verbal: Oriented GCS Score: 15 Results - Vitals Vitals: Vital Signs - 24 hr 03/09/22 03/09/22 03/09/22 20:49 20:55 22:55 Temperature 36.5 C 36.5 C Heart Rate 76 76 59 L Respiratory 18 18 13 Rate Blood Pressure 124/76 124/76 142/85 H O2 Saturation 100 100 98 03/10/22 00:00 Temperature 36.5 C Heart Rate 59 L Respiratory 13 Rate Blood Pressure 142/85 H O2 Saturation 98 Oxygen O2 Source Room air - EKG (time done) 2158 Rate: Rate (enter#) (66) Rhythm: NSR Intervals: Prolonged QT (QTC 577) Ischemia: Non specific changes (T wave flattening in inferior and lateral leads). No: ST elevation c/w ischemia - Labs Labs: Laboratory Tests 03/09/22 03/09/22 03/09/22 22:19 22:19 22:19 WBC 3.2 L RBC 3.07 L Hgb 10.2 L Hct 29.4 L MCV 95.8 H MCH 33.2 H MCHC 34.7 RDW 13.6 Plt Count 119 L MPV 9.0 Neut # (Auto) 1.7 Lymph # (Auto) 1.1 L Tensas # (Auto) 0.2 Eos # (Auto) 0.2 Baso # (Auto) 0.0 Absolute Nucleated RBC 0.00 Nucleated RBC % 0.0 Sodium 134 L Potassium 3.1 L Chloride 96 L Carbon Dioxide 29 Anion Gap 9.0 BUN 16 Creatinine 1.1 Estimated GFR (MDRD) 67 L Glucose 96 Calcium 8.7 Magnesium 1.8 Total Bilirubin 0.2 AST 19 ALT < 10 L Alkaline Phosphatase 50 Total Protein 7.1 Albumin 3.6 Globulin 3.5 Albumin/Globulin Ratio 1.0 Lipase 47 PD MEDICAL DECISION MAKING - ED course Complexity details: reviewed results, re-evaluated patient, d/w patient, d/w family ED course: Patient presenting with weakness, nausea and vomiting with abdominal pain. He has a history of colon cancer. Vital signs are stable. Labs reviewed With mild hypokalemia noted. Otherwise remainder of labs appear similar to previous. CT scan obtainedAnd reviewed. ?colitis, Patient Declined need forPain medication and stated that his pain had improved. On repeat exam he has no tenderness in the right upper quadrant to suggest gallbladder pathology.He is tolerating p.o. He is scheduled to see his oncologist on Wednesday. He is aware of strict return precautions for any worsening symptoms. Due to global and hospital shortage of IV contrast related to Covid [address], [address] scan ordered without contrast. Departure - Departure Disposition: 01 Home, Self Care Clinical Impression: Hypokalemia Nausea & vomiting Qualifiers: Vomiting type: unspecified Qualified Code(s): R11.2 - Nausea with vomiting, unspecified Condition: Stable Instructions: ED Potassium Deficiency, ED Nausea Vomiting Follow-Up: CATIA TILLEY MD [Provider Admit Priv/Credential] - Comments: You were evaluated for nausea, vomiting and weakness along with abdominal pain. Your vital signs here have been stable. Your labs showed a slightly low potassium which we gave you a potassium pill for. You received a medicine for nausea as well as IV fluids and your symptoms appear to have improved. We did obtain a CT scan of your abdomen. Please share the results below with your oncologist on Wednesday.You may need another CT scan to better evaluate the increase in the fluid in your abdomen to make sure that cancer has not spread.If you have any worsening symptoms please return to the emergency department. CT SCAN RESULTS - PLEASE SHARE THIS WITH DR. TILLEY IMPRESSION: 1. Increased diffuse mild wall thickening in the colon with associated mild pericolonic fat stranding suggestive of an infectious or inflammatory colitis. 2. Small amount of intraperineal free fluid appears increased compared to the prior study. The findings are nonspecific and may be reactive, but peritoneal disease cannot be excluded. No discrete peritoneal mass identified in the absence of intravenous contrast. 3. Dependent hyperattenuation in the gallbladder suggestive of biliary sludge or noncalcified gallstones. No definite gallbladder wall thickening. Further evaluation may be obtained with ultrasound if clinically indicated. Discharge Date/Time: 03/10/22 01:17
[2022-03-09 22:25] LABS: BASOPHILS % (AUTO) 0.3 %; EOSINOPHILS # (AUTO) 0.2 10^3/uL (0.0-0.7); EOSINOPHILS % (AUTO) 7.2 %; HCT - HEMATOCRIT 29.4 % (42.0-52.0); HGB - HEMOGLOBIN 10.2 g/dL (14.0-18.0); LYMPHOCYTES # (AUTO) 1.1 10^3/uL (1.5-3.5); LYMPHOCYTES % (AUTO) 33.8 %; MEAN CORPUSCULAR HEMOGLOBIN 33.2 pg (27.0-31.0); MEAN CORPUSCULAR HGB CONC 34.7 g/dL (32.0-36.0); MEAN CORPUSCULAR VOLUME 95.8 fL (80.0-94.0); MONOCYTES # (AUTO) 0.2 10^3/uL (0.0-1.0); MONOCYTES % (AUTO) 6.6 %; NEUTROPHILS # (AUTO) 1.7 10^3/uL (1.5-6.6); NEUTROPHILS % (AUTO) 51.8 %; PLT - PLATELET COUNT 119 10^3/uL (130-450); RED BLOOD COUNT 3.07 10^6/uL (4.70-6.10); RED CELL DISTRIBUTION WIDTH 13.6 % (12.0-15.0); WHITE BLOOD COUNT 3.2 x10^3/uL (4.8-10.8)
[2022-03-09 22:39] LABS: ALBUMIN 3.6 g/dL (3.2-5.5); ALKALINE PHOSPHATASE 50 IU/L (42-121); ALT ALANINE AMINOTRANSFERASE < 10 IU/L (10-60); AST ASPARTATE AMINOTRANSFERASE 19 IU/L (10-42); BILIRUBIN,TOTAL 0.2 mg/dL (0.2-1.0); BUN - BLOOD UREA NITROGEN 16 mg/dL (6-20); CALCIUM 8.7 mg/dL (8.5-10.3); CARBON DIOXIDE - CO2 29 mmol/L (21-32); CHLORIDE 96 mmol/L (101-111); CREATININE 1.1 mg/dL (0.6-1.2); GFR - MDRD 67 (>89); GLUCOSE 96 mg/dL (70-100); LIPASE 47 U/L (22-51); POTASSIUM 3.1 mmol/L (3.5-5.0); SODIUM 134 mmol/L (135-145); TOTAL PROTEIN 7.1 g/dL (6.7-8.2)
[2022-03-09 23:08] VITALS: BP 142/85
--- NOTE | 2022-03-10 00:21 | CT Report ---
PROCEDURE: Abdomen/Pelvis WO INDICATIONS: colon cancer; N/V TECHNIQUE: Noncontrast 5 mm thick sections acquired from the diaphragms to the symphysis. 5 mm coronal and sagi ttal reformats were then performed. For radiation dose reduction, the following was used: automated exposure control, adjustment of mA and/or kV according to patient size. COMPARISON: 02/18/2022. FINDINGS: Image quality: Limited evaluation in the absence of intravenous contrast. Lung bases:There is mild dependent atelectasis. Heart: Heart size is mildly enlarged. ABDOMEN: Liver:Noncontrast evaluation of the liver demonstrates no discrete hepatic mass. There is suggestion of periportal edema. Gallbladder:There is slight dependent hyperattenuation in the gallbladder suggestive of biliary slud ge or noncalcified gallstones. No definite gallbladder wall thickening. Biliary ducts: No biliary ductal dilatation. Pancreas: Unremarkable. Spleen: Normal in size. Adrenal Glands: No adrenal nodules. Kidneys and Ureters: No hydronephrosis. No renal stones. There is a right renal cyst. Stomach and Bowel: Stomach and small bowel loops appear normal in caliber and wall thickness. There is mild diffuse colonic wall thickening which appears increased compared to the prior study suggestiv e of a colitis. There is associated mild pericolonic fat stranding. Peritoneum:There is a small amount of intraperineal free fluid. No free air.No discrete peritoneal mass identified but evaluation is limited in the absence of intravenous contrast. Ventral Wall: No hernia. Abdominal Nodes: No retroperitoneal or mesenteric adenopathy by size criteria. Vessels: Aorta and inferior vena cava are normal in size. PELVIS: Pelvic Organs: Unremarkable. Bladder: Unremarkable. Pelvic Nodes: No enlarged lymph nodes. Miscellaneous: No inguinal hernias are seen. Bones: Visualized osseous structures demonstrate no suspicious focal lesions. IMPRESSION: 1. Increased diffuse mild wall thickening in the colon with associated mild pericolonic fat stranding suggestive of an infectious or inflammatory colitis. 2. Small amount of intraperineal free fluid appears increased compared to the prior study. The findin gs are nonspecific and may be reactive, but peritoneal disease cannot be excluded. No discrete perito jaydon mass identified in the absence of intravenous contrast. 3. Dependent hyperattenuation in the gallbladder suggestive of biliary sludge or noncalcified gallsto daniel. No definite gallbladder wall thickening. Further evaluation may be obtained with ultrasound if c linically indicated. Reviewed by: Fernandez Rocha MD on 03/10/2022 12:19 AM PDT Approved by: Fernandez Rocha MD on 03/10/2022 12:19 AM PDT Station ID: [id number]
[2022-03-10] MEDS ORDERED: POTASSIUM CHLORIDE 20 MEQ TABLET PO STA (00:32)
== END 2022-03-10 01:17 | disposition home or self-care (01) ==
LOC: ED 20:40
DX: E87.6 Hypokalemia (principal); R11.2 Nausea with vomiting, unspecified; Z87.891 Personal history of nicotine dependence
CPT/HCPCS: 36415; 74176; 80053; 83690; 83735; 85025; 93005; 96361; 96374; 96375; 99282; 99284; A9270

== ENCOUNTER 2022-04-06 11:26 | Outpatient (CLI) | payer MEDICARE ==
[2022-04-06 20:08] LABS: BASOPHILS % (AUTO) 0.5 %; EOSINOPHILS # (AUTO) 0.6 10^3/uL (0.0-0.7); EOSINOPHILS % (AUTO) 10.9 %; HCT - HEMATOCRIT 35.1 % (42.0-52.0); HGB - HEMOGLOBIN 11.8 g/dL (14.0-18.0); LYMPHOCYTES # (AUTO) 2.7 10^3/uL (1.5-3.5); LYMPHOCYTES % (AUTO) 46.9 %; MEAN CORPUSCULAR HEMOGLOBIN 33.6 pg (27.0-31.0); MEAN CORPUSCULAR HGB CONC 33.6 g/dL (32.0-36.0); MEAN PLATELET VOLUME 8.9 fL (7.4-11.4); MONOCYTES # (AUTO) 0.3 10^3/uL (0.0-1.0); MONOCYTES % (AUTO) 5.9 %; NEUTROPHILS # (AUTO) 2.1 10^3/uL (1.5-6.6); NEUTROPHILS % (AUTO) 35.6 %; PLT - PLATELET COUNT 197 10^3/uL (130-450); RED BLOOD COUNT 3.51 10^6/uL (4.70-6.10); RED CELL DISTRIBUTION WIDTH 15.9 % (12.0-15.0); WHITE BLOOD COUNT 5.8 x10^3/uL (4.8-10.8)
[2022-04-06 20:25] LABS: ALBUMIN 3.9 g/dL (3.2-5.5); BILIRUBIN,TOTAL 0.5 mg/dL (0.2-1.0); CALCIUM 9.5 mg/dL (8.5-10.3); CREATININE 0.9 mg/dL (0.6-1.2); POTASSIUM 3.9 mmol/L (3.5-5.0); TOTAL PROTEIN 7.8 g/dL (6.7-8.2)
== END 2022-04-06 11:27 | disposition home or self-care (01) ==
LOC: LAB.N 11:26
PROVIDERS: ATTEND Nurse Practitioner Adult Health
DX: C18.7 Malignant neoplasm of sigmoid colon (principal); Z79.899 Other long term (current) drug therapy
CPT/HCPCS: 36415; 80053; 85025